=== PATIENT | male | born 1935 | race Caucasian/White ===

== ENCOUNTER 2018-05-29 03:36 | Observation (INO) | payer MEDICARE, SELFPAY ==
[2018-05-29] VITALS (7 sets, daily range): BP systolic 109–137; BP diastolic 61–79; PULSE 68–83; RESP 16–96; TEMP 36.6; O2SAT 14–98; BMI 27.0; BMI 27.7
--- NOTE | 2018-05-29 04:21 | EKG12_ITS ---
Test Reason : Blood Pressure : / mmHG Vent. Rate : 074 BPM Atrial Rate : 094 BPM P-R Int : 000 ms QRS Dur : 144 ms QT Int : 446 ms P-R-T Axes : 000 064 006 degrees QTc Int : 495 ms Atrial fibrillation Right bundle branch block Abnormal ECG Confirmed by RAQUEL MILIAN, GISELE ([id number]), news editor ROMIE OJEDA ([id number]) on 06/01/2018 1:25:44 PM Referred By: HAYLIE Confirmed By:GISELE GARCÍA MD
--- NOTE | 2018-05-29 04:21 | CT_ITS ---
STUDY: CT BRAIN WITHOUT CONTRAST REASON FOR EXAM: Male, 82 years old. Disequilibrium. Patient has history of thoracic aortic valve replacement. RADIATION DOSAGE (If Supplied By Facility): CTDIvol = ( 44.99 ) mGy, DLP = ( 829.85 ) mGycm TECHNIQUE: Transaxial CT imaging of the brain was performed without administration of intravenous contrast material. Multiplanar reformations are submitted for interpretation. Individualized dose optimization techniques were used for this CT. COMPARISON: MRI of the brain dated February 15, 2014. FINDINGS: Normal soft tissue structures. Normal calvarium. There is mild cerebral atrophy with widening of the extra-axial spaces and ventricular dilatation. There are areas of decreased attenuation within the white matter tracts of the supratentorial brain, consistent with microvascular disease changes. Normal basal ganglia and thalami. Normal brainstem. There is mild cerebellar atrophy. There is no intracranial hemorrhage. There is minimal atherosclerotic calcification of the intracranial arteries. There is a right maxillary mucous retention cyst and/or polyp. There are mucous retention cysts within the right posterior ethmoid sinus. CT/Brain/Head without Contrast IMPRESSION: 1. Chronic involutional changes of the brain. 2. No CT evidence of acute intracranial hemorrhage. Electronically Signed: Terra Parikh MD at 5:12 EST , Service support ,
--- NOTE | 2018-05-29 04:24 | ED.VIS.GEN ---
History of Present Illness Chief Complaint: Neuro S/Sx Informant: Patient Onset: Hours - 1 Context: Sudden Onset Quality: staggering, off-balance Current Severity: Mild Maximum Severity: Severe Worsened by: walking Relieved by: resting Associated Symptoms: none Narrative: Patient states he got up around 3 in the morning to use the restroom, noticed he was staggering. When he rests, he has no symptoms. He only has them when he walks. Upon walking into the ER and his room from the car, he states his walking is 90% better. He has chronic tinnitus. There is no change in that. No recent illness, head injury, earache. No headache, nausea, peripheral neurologic symptoms in his arms or legs. He had a TIA in the past that affected one side of his body, he cannot remember which side, it left him with no permanent deficits. He is on warfarin, his last INR was about 2.6 a week or so ago he states. - Past Medical History (1) Atrial fibrillation and flutter Status: Chronic (2) HTN (hypertension) Status: Chronic (3) Hyperlipidemia Status: Chronic (4) TIA (transient ischemic attack) Status: Chronic Past Medical History - Allergies and Home Meds Allergies/Adverse Reactions: Allergies No Known Allergies Allergy (Verified 05/29/18 03:37) Primary Care Physician: Yehuda Richards III, MD [Primary Care Provider] - Surgical History: herniorrhaphy, tonsillectomy, - - porcine AVR Lives: Spouse/ Significant Other Smoking Status: Never smoker - Family History Maternal Family History: Reports: Heart Disease Paternal Family History: Reports: Heart Disease Review of Systems General: Denies: Chills, Fever, Sweats Eyes: Denies: Visual changes - bilaterally, Diplopia ENT: Reports: - - chronic bilat tinnitus. Denies: Bilateral ear pain, Rhinorrhea, Sore throat Cardiovascular: Denies: Chest pain, Palpitations Respiratory: Denies: Dyspnea, Cough, Dyspnea on exertion Gastrointestinal: Denies: Abdominal pain, Nausea, Vomiting, Diarrhea, Melena, Hematochezia Genitourinary: Denies: Dysuria, Hematuria, Frequency Musculoskeletal: Denies: Back pain, Swelling, Extremity Pain Skin: Denies: Rash, Wounds Neurological: Reports: - - dysquilibrium. Denies: Headache, Weakness, Numbness Psych: Denies: Depression, Anxiety Endocrine: Denies: Polyuria, Polydipsia Hematologic: Denies: Easy bruising, Easy bleeding Allergy: Denies: Swelling of the mouth, Swelling of the tongue Physical Exam Vital Signs/Narrative: Vital Signs Temp Pulse Resp BP Pulse Ox 05/29/18 03:37 97.9 F 80 16 137/79 H 96 Inital Vital Signs reviewed: Yes General: Well nourished, Well developed Head: Normocephalic, Atraumatic Eyes: Perrl, EOMI, - - no abn nystagmus ENT: Moist mucous membranes, No rhinorrhea, TM's clear Neck: Supple, Nontender, - - no carotid bruits Cardiovascular: Regular rate, Regular rhythm, No murmurs Respiratory: No distress, CTA bilaterally, Chest nontender Abdomen: Soft, Nontender, Nondistended, Normal bowel sounds Back: Nontender, Normal Inspection Extremities: Nontender, No edema Skin: Normal color, No rash Neurological: Alert, Oriented x3, Cranial nerves II-XII grossly intact, Normal Strength, Normal Sensation, Normal DTR, - - Nml FTN and HTS bilat. No aphasia or dysarthia. NIHSS 0. Psychological: Normal affect Diagnostic/Tx/Re-eval Impressions Brain CT 05/29/18 04:21 IMPRESSION: 1. Chronic involutional changes of the brain. 2. No CT evidence of acute intracranial hemorrhage. Electronically Signed: Terra Parikh MD at 5:12 EST , Service support , 05/29/18 04:21 Brain/Head without Contrast [CT] Stat Laboratory Results 05/29/18 05/29/18 05/29/18 03:50 03:50 03:50 WBC 7.1 RBC 4.50 L Hgb 14.2 Hct 42.1 MCV 93.6 MCH 31.6 MCHC 33.7 RDW 12.2 RDW Differential 41.0 Plt Count 169 MPV 11.5 Immature Gran % (Auto) 0.100 Neut % (Auto) 52.4 Lymph % (Auto) 30.0 [place] % (Auto) 13.3 H Eos % (Auto) 3.8 Baso % (Auto) 0.4 Absolute Neuts (auto) 3.7 Absolute Lymphs (auto) 2.13 Total Counted Not Reportable PT 25.6 H INR 2.3 APTT 42.8 H Sodium 142 Potassium 3.8 Chloride 105 Carbon Dioxide 25.0 Anion Gap 12 BUN 28 H Creatinine 1.30 Estim Creat Clear Calc 49.51 Est GFR (MDRD) Af Amer 68 Est GFR (MDRD) Non-Af 56 L BUN/Creatinine Ratio 21.5 H Glucose 103 Calcium 8.8 Troponin I < 0.015 POC Glucose 05/29/18 04:45 WBC RBC Hgb Hct MCV MCH MCHC RDW RDW Differential Plt Count MPV Immature Gran % (Auto) Neut % (Auto) Lymph % (Auto) [place] % (Auto) Eos % (Auto) Baso % (Auto) Absolute Neuts (auto) Absolute Lymphs (auto) Total Counted PT INR APTT Sodium Potassium Chloride Carbon Dioxide Anion Gap BUN Creatinine Estim Creat Clear Calc Est GFR (MDRD) Af Amer Est GFR (MDRD) Non-Af BUN/Creatinine Ratio Glucose Calcium Troponin I POC Glucose 106 - Rhythm Strip Rhythm Strip: A-fib Rate: 75 Ectopy: None - EKG Initial EKG Interpretation: Atrial Fibrillation, RBBB, Non-Specific ST Changes Prior: Unchanged - Medical Decision Making Labs are unremarkable, EKG shows stable A. fib with a chronic right bundle branch block, CT head negative. Upon reevaluation, patient is ambulatory and still feels the symptoms of ataxia, similar to when he arrived to the ER, stating that he is certainly not at baseline. I discussed with neurology Dr. Hartman, and discussed his EGFR of 56. He agrees that CT angiography is not necessarily needed given his NIH of 0, but he recommends admission for further TIA workup/monitoring. Discussed with hospitalist. ED Disposition - Plan for ED Patient: Disposition: Acute Care Hospital [facility] Chief Complaint: Neuro S/Sx Diagnosis: Ataxia Referrals: Yehuda Richards III, MD [Primary Care Provider] -
[2018-05-29 04:45] LABS: Absolute Lymphocyte Count 2.13 X10^3/ul (0.83-4.51); Absolute Neutrophil Count 3.7 X10^3/uL (2.0-7.7); Basophil# 0.03 X10^3/uL; Basophil% 0.4 % (0-1); Eosinophil# 0.27 X10^3/uL; Eosinophils% 3.8 % (0-5); Hematocrit 42.1 % (40-54); Hemoglobin 14.2 g/dl (13.0-16.5); Lymphocyte # 2.13 X10^3/ul (4.0); Mean Corp Hgb Conc 33.7 g/gl (32-36); Mean Corpuscular Hgb 31.6 pg (27.0-32.0); Mean Corpuscular Volume 93.6 fL (80-94); Mean Platelet Vol. 11.5 fl (6.2-12.0); Monocyte# 0.94 X10^3/uL; Monocyte% 13.3 % (0-10); Neutrophil # 3.71 X10^3/uL (2.7-7.7); Neutrophil % 52.4 % (47-70); Platelet Count 169 K/mm3 (150-450); RBC Distribution Width CV 12.2 % (11.6-14.6); White Blood Count 7.1 K/mm3 (4.4-11.0)
[2018-05-29 04:46] LABS: POSITIVE COUNT NO; POSITIVE DIFFERENTIAL NO; POSITIVE MORPHOLOGY NO
[2018-05-29 04:48] LABS: International Normalized Ratio 2.3; Prothrombin Time (Protime)PT. 25.6 SECONDS (11.7-14.9)
[2018-05-29 04:49] LABS: Partial Thromboplast Time 42.8 Seconds (24.1-36.2)
[2018-05-29 04:51] LABS: Bedside Glucose 106 mg/dL (70-110)
[2018-05-29 04:55] LABS: Anion Gap 12 (5-15); BUN 28 mg/dL (7-18); BUN/Creat Ratio 21.5 RATIO (10-20); Calcium,Total 8.8 mg/dL (8.5-10.1); Chloride 105 mmol/L (98-107); EST Glomerular Filtration Rate 56 mL/min (>60); Est Glom Filt Rate - Afr Amer 68 mL/min (>60); Estimated Creatinine Clearance 49.51 ml/min; Glucose 103 mg/dL (74-106); Potassium 3.8 mmol/L (3.5-5.1); Sodium Level 142 mmol/L (136-145)
--- NOTE | 2018-05-29 07:29 | NURSING ---
109 OBS CONY ZHAO
--- NOTE | 2018-05-29 07:55 | MRI_ITS ---
STUDY: MRA NECK WITH AND WITHOUT CONTRAST REASON FOR EXAM: Male, 82 years old. W Weakness UNSTEADY GAIT, TIA. TECHNIQUE: 3-D [id number] (TOF) imaging was performed in an 1.5 T MRI scanner. 9 ml of Gadavist was administered for the contrast enhanced images. COMPARISON: February 16, 2014 CTA FINDINGS: RIGHT CAROTID ARTERIES: Normal right common carotid artery (CCA). Normal right common carotid bulb. Normal origin of the right internal carotid (ICA) artery without a hemodynamically significant stenosis. Normal visualized cervical portion of the right internal carotid artery. Normal origin of the right external carotid artery (ECA). LEFT CAROTID ARTERIES: Normal left common carotid artery (CCA). There is moderate atherosclerotic plaque formation with moderate narrowing of the carotid bulb. There is moderate atherosclerotic plaque formation of the origin of the left internal carotid artery with an estimated stenosis of 50-69% stenosis. Normal visualized cervical portion of the left internal carotid artery. Normal origin of the left external carotid artery (ECA). VERTEBRAL ARTERIES: Normal antegrade flow within the bilateral vertebral artery without a hemodynamically significant stenosis. 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 Electronically Signed: Pretty Garcia MD at 12:37 EST Tel , Service support ,
--- NOTE | 2018-05-29 07:55 | MRI_ITS ---
STUDY: MRA OF THE HEAD WITHOUT CONTRAST REASON FOR EXAM: Male, 82 years old. weakness, ataxia since 3am today. TECHNIQUE: 3-D [id number] (TOF) imaging was performed with MIPs. The study was performed unenhanced. COMPARISON: None. FINDINGS: Normal bilateral petrous carotid arteries. Normal right cavernous carotid artery with a normal supraclinoid bifurcation. Normal left cavernous carotid artery with a normal supraclinoid bifurcation. Normal right A1 segments of the anterior cerebral artery. Normal left A1 segments of the anterior cerebral artery. Normal intact anterior communicating artery (ACOM). Normal bilateral A2 segments of the anterior cerebral arteries. Normal right M1 and M2 segments of the middle cerebral arteries, with a normal M1 bifurcation. Normal left M1 and M2 segments of the middle cerebral arteries, with a normal M1 bifurcation. There is non-visualization of the right posterior communicating artery (PCOM). Normal left posterior communicating artery (PCOM). Normal bilateral vertebral arteries. Normal basilar artery with a normal basilar bifurcation. The visualized bilateral superior cerebellar (SCA) arteries are normal. Normal bilateral P1, P2 and visualized P3 segments of the posterior cerebral arteries. There is no demonstrated aneurysm of the [place] of [place]. There is no major vessel occlusion or hemodynamically significant stenosis. There is no demonstrated abnormality of the visualized brain. MRI/MRA Head ONLY without Contrast IMPRESSION: Normal MRA of the head Electronically Signed: Pretty Garcia MD at 12:33 EST Tel , Service support ,
--- NOTE | 2018-05-29 07:55 | MRI_ITS ---
STUDY: MRI BRAIN WITHOUT CONTRAST REASON FOR EXAM: Male, 82 years old. W Weakness UNSTEADY GAIT, TIA. TECHNIQUE: Standardized multiplanar fat and water weighted pulse sequences were obtained. COMPARISON: 05/29/2018 CT of the head and MRI dated February 15, 2014 FINDINGS: There is mild cerebral atrophy with widening of the extra-axial spaces and ventricular dilatation. There are multiple white matter hyperintensities, distributed throughout the deep white matter tracts of the cerebral hemispheres, consistent with mild chronic white matter ischemic changes. There is a subtle 5 mm high diffusion signal at the high posterior frontal lobe (diffusion image #26 series 4) ADC map is difficult to determine but it is felt that there is Doppler signal in this region. Additionally there were acute lacunar infarcts of this area on the previous MRI examination in 2013. Normal bilateral basal ganglia. Normal thalami. There is no extra-axial fluid accumulation. Normal flow voids within the major intracranial circulation suggesting patency by spin echo criteria. Normal sella turcica, pituitary gland, infundibular stalk, optic chiasm and hypothalamus. Normal tectal plate and pineal gland. There are chronic white matter ischemic changes of the dino. The midbrain and medulla are otherwise normal. Normal cerebellum. Normal basal cisterns. 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 N.B. : The above information has been verbally conveyed by Pretty Garcia MD to Cat Teran RN, on 05/29/2018 12:41:10 (ET). Electronically Signed: Pretty Garcia MD at 12:31 EST Tel , Service support ,
[2018-05-29] MEDS: 0.9% Normal Saline 1,000 ML 100 ML IV (10:42)
--- NOTE | 2018-05-29 12:33 | ECHOCS_ITS ---
Version 2 Reason For Study: Stroke Procedure This was a 2D Doppler, Color Flow transthoracic echocardiogram. The study was technically difficult. Contrast injection was performed. Exam performed portable in patient room. Left Ventricle Normal LV size. Mild concentric left ventricular hypertrophy. Left ventricular systolic function is normal. The estimated ejection fraction is 60 %. No regional wall motion abnormalities noted. Right Ventricle Normal RV size. Normal systolic function. Atria The left atrium is mildly enlarged. The right atrium is mildly enlarged. No doppler evidence for ASD. Bubble contrast study negative for right to left interatrial shunt. Mitral Valve There is mild mitral annular calcification. Mild focal mitral valve calcification of the anterior leaflet. Trivial mitral valve insufficiency. Tricuspid Valve Normal tricuspid valve. Mild tricuspid valve insufficiency. Right ventricular systolic pressure estimated to be 34 mmHg. Aortic Valve Stable appearing bioprosthetic aortic valve apparatus. Pulmonic Valve The pulmonic valve is not well visualized. Mild (1+) pulmonic valve insufficiency. Great Vessels Normal sized aortic root. Calcified aortic root. Pericardium/Pleural No pericardial effusion. Medication Performed a rapid injection of agitated mix of 9 cc saline and 1cc air to assess for atrial septal defect. Definity0.3ml given slow IV push to enhance endocardial definition. MMode/2D Measurements & Calculations LVIDd: 4.7 cm IVSd: 1.4 cm LVOT diam: 2.3 cm LVIDs: 2.4 cm LVPWd: 1.4 cm RVDd: 5.2 cm FS: 49.1 % LVOT area: 4.1 cm2 Ao root diam: 3.8 cm LAV(MOD-bp): 86.2 ml LVAd ap4: 24.9 cm2 LAV(MOD-bp) Indexed: 39.3 ml/m2 EDV(MOD-sp4): 76.2 ml LAV(MOD-sp2): 93.0 ml EDV(sp4-el): 78.4 ml LAV(MOD-sp4): 65.4 ml LVAs ap4: 14.6 cm2 ESV(MOD-sp4): 30.6 ml ESV(sp4-el): 32.2 ml EF(MOD-sp4): 59.8 % EF(sp4-el): 58.9 % SV(MOD-sp4): 45.6 ml SV(sp4-el): 46.2 ml LA A4 area: 22.7 cm2 LA dimension(2D): 5.2 cm RA A4 area: 19.7 cm2 Doppler Measurements & Calculations MV E max zander: 111.6 cm/sec Ao V2 max: 240.5 cm/sec LV V1 max: 128.9 cm/sec MV A max zander: 31.8 cm/sec Ao max P.1 mmHg LV V1 max P.7 mmHg MV E/A: 3.5 Ao V2 mean: 159.6 cm/sec LV V1 mean P.9 mmHg Ao mean P.6 mmHg LV V1 mean: 94.9 cm/sec Ao V2 VTI: 44.5 cm LV V1 VTI: 25.[address](I,D): 2.[address](V,D): 2.2 cm2 SV(LVOT): 105.1 ml PA V2 max: 75.3 cm/sec PI end-d zander: 129.5 cm/sec TR max zander: 277.8 cm/sec TR max P.9 mmHg Interpretation Summary The study was technically difficult. Contrast injection was performed. Left ventricular systolic function is normal. The estimated ejection fraction is 60 %. Mild concentric left ventricular hypertrophy. The left atrium is mildly enlarged. The right atrium is mildly enlarged. There is mild mitral annular calcification. Mild focal mitral valve calcification of the anterior leaflet. Trivial mitral valve insufficiency. Mild tricuspid valve insufficiency. Stable appearing bioprosthetic aortic valve apparatus. Mild (1+) pulmonic valve insufficiency. Calcified aortic root. Right ventricular systolic pressure estimated to be 34 mmHg. Transmitral diastolic flow velocities suggest diastolic dysfunction (pseudonormal pattern). Bubble contrast study negative for right to left interatrial shunt. Ordering Physician: Florentin Hall Referring Physician: Yehuda Richards Performed By: Leyda Sal, TANNER, RVT
--- NOTE | 2018-05-29 13:05 | CON.PCM_ITS ---
Reason for Consult Date of Consultation: 05/29/18 Reason for Consultation: ataxia History of Present Illness: The patient is a 82 year old who was normal when went to bed, awoke at 3 am staggering Past Medical History Past Medical History (Chronic Problems): Chronic Problems (Last Reviewed 08/08/17 @ 15:04 by Lanny Montgomery) Hyperlipidemia (Chronic) S/P AVR (aortic valve replacement) (Chronic) TIA (transient ischemic attack) (Chronic) HTN (hypertension) (Chronic) Atrial fibrillation and flutter (Chronic) Medical History: Medical History (Last Reviewed 08/08/17 @ 15:04 by Lanny Montgomery) Hyperlipidemia (Chronic) E78.5 TIA (transient ischemic attack) (Chronic) HTN (hypertension) (Chronic) I10 Atrial fibrillation and flutter (Chronic) I48.91, I48.92 Inguinal hernia (Acute) K40.90 Allergies No Known Allergies Allergy (Verified 05/29/18 03:37) Home Medications: Ambulatory Orders Medication Instructions Recorded Multivitamins,Ther W-Minerals 0.5 tab PO BID 02/15/14 [Multivitamin With Minerals] Simvastatin [Zocor] 20 mg PO QHS 02/15/14 Clopidogrel Bisulfate [Plavix] 75 mg PO DAILY 05/06/17 Furosemide [Lasix] 20 mg PO DAILY 05/06/17 Spironolactone [Aldactone] 25 mg PO DAILY 05/06/17 Warfarin Sodium [Coumadin] 1 mg PO QODAY 05/06/17 Warfarin [Coumadin] 2 mg PO QODAY 05/06/17 Metoprolol Tartrate 12.5 mg PO BID 05/29/18 Surgical History: Surgical History (Last Reviewed 08/08/17 @ 15:04 by Lanny Montgomery) S/P AVR (aortic valve replacement) (Chronic) Z95.2 S/P right inguinal hernia repair Onset Date: ~05/08/17 Z98.890, Z87.19 Surgical History: herniorrhaphy, tonsillectomy, - - porcine AVR Lives: Spouse/ Significant Other Smoking Status: Never smoker - *Family History Maternal History Items: Heart Disease Paternal History Items: Heart Disease Review of Systems Constitutional: Denies: Chills, Fever, Weight Change HEENT: Denies: Head Aches, Sinus Congestion, Sinus Drainage Cardiovascular: Denies: Chest Pain, Palpitations Respiratory: Denies: Cough, Shortness of breath at rest, Sputum production Gastrointestinal: Denies: Abdominal Pain, Nausea, Vomiting Genitourinary: Denies: Dysuria Musculoskeletal: Denies: Joint Pain, Joint Tenderness Skin: Denies: Rash, Wounds Neurological: Denies: Numbness, Tingling, Focal weakness Psychiatric: Denies: Anxiety, Depression, Homicidal Ideations, Suicidal Ideations Hematologic/ Lymphatic: Denies: Easy Bruising, Easy Bleeding Patient Problems: Active and Suspected Problems (Last Reviewed 08/08/17 @ 15:04 by Lanny Montgomery) Ataxia (Acute) - Physical Exam General: Alert, Oriented x3, Cooperative HEENT: Atraumatic, PERRLA, EOMI, Normocephalic Neck: Supple, No JVD, Negative Carotid Bruits Lungs: Clear to auscultation, Normal air movement Cardiovascular: Regular rate, No murmurs Abdomen: Bowel Sounds Present, Soft, Non Tender Extremities: No edema, Capillary Refill Less than 3 Seconds Skin: No rashes, No breakdown Musculoskeletal: No Tenderness to Palpation of Joints or Extremities Neurological: Cranial nerves II-XII grossly intact Psych/Mental Status: Normal Affect, Appropriate Vital Signs Temp Pulse Resp BP Pulse Ox 36.6 C 77 18 113/76 97 05/29/18 11:45 05/29/18 11:45 05/29/18 11:45 05/29/18 11:45 05/29/18 11:45 Oxygen Delivery Method Room Air Weight: 95.3 kg Body Mass Index (BMI) 27.7 Finger Stick Blood Glucose 106 Intake and Output for Last 24 Hours 05/27/18 05/28/18 05/29/18 23:59 23:59 23:59 Intake Total 183 / 183 Balance 183 / 183 Laboratory Tests Past 24 Hrs 05/29/18 05/29/18 05/29/18 03:50 03:50 03:50 WBC 7.1 RBC 4.50 L Hgb 14.2 Hct 42.1 MCV 93.6 MCH 31.6 MCHC 33.7 RDW 12.2 RDW Differential 41.0 Plt Count 169 MPV 11.5 Immature Gran % (Auto) 0.100 Neut % (Auto) 52.4 Lymph % (Auto) 30.0 [place] % (Auto) 13.3 H Eos % (Auto) 3.8 Baso % (Auto) 0.4 Absolute Neuts (auto) 3.7 Absolute Lymphs (auto) 2.13 Total Counted Not Reportable PT 25.6 H INR 2.3 APTT 42.8 H Sodium 142 Potassium 3.8 Chloride 105 Carbon Dioxide 25.0 Anion Gap 12 BUN 28 H Creatinine 1.30 Estim Creat Clear Calc 49.51 Est GFR (MDRD) Af Amer 68 Est GFR (MDRD) Non-Af 56 L BUN/Creatinine Ratio 21.5 H Glucose 103 Calcium 8.8 Troponin I < 0.015 POC Glucose 05/29/18 04:45 POC Glucose 106 Current Home Med List Medication Instructions Recorded Confirmed Type Multivitamins,Ther W-Minerals 0.5 tab PO BID 02/15/14 05/29/18 History [Multivitamin With Minerals] Simvastatin [Zocor] 20 mg PO QHS 02/15/14 05/29/18 History Clopidogrel Bisulfate [Plavix] 75 mg PO DAILY 05/06/17 05/29/18 History Furosemide [Lasix] 20 mg PO DAILY 05/06/17 05/29/18 History Spironolactone [Aldactone] 25 mg PO DAILY 05/06/17 05/29/18 History Warfarin Sodium [Coumadin] 1 mg PO QODAY 05/06/17 05/29/18 History Warfarin [Coumadin] 2 mg PO QODAY 05/06/17 05/29/18 History Metoprolol Tartrate 12.5 mg PO BID 05/29/18 05/29/18 History Current Medications Generic Name Dose Route Start Last Admin Trade Name Freq PRN Reason Stop Dose Admin Atorvastatin Calcium 80 mg 05/29/18 22:00 Lipitor PO QHS BROWN Sodium Chloride 500 mls @ 999 mls/hr 05/29/18 04:20 05/29/18 04:43 IV 999 mls/hr .Q31M ONE Administration Sodium Chloride 1,000 mls @ 100 mls/hr 05/29/18 07:55 05/29/18 10:42 IV 100 mls/hr .Q10H BROWN Administration Sodium Chloride 5 - 15 ml 05/29/18 09:50 IV UD PRN SALINE FLUSH mri reviewed, ? small left cortical infarct vs t2 shine thru. same distribution as prior stroke. Assessment/Plan All Active Problems (Last Reviewed 08/08/17 @ 15:04 by Lanny Montgomery) Ataxia (Acute) Inguinal hernia (Acute) suspect mild hypotension event rather than new cva continue coumadin, inr therapeutic echo ok to dc otherwise follow bp daily, keep log and follow with cardio, rec sbp 120-130 would dc plavix unless cardiac indication
--- NOTE | 2018-05-29 14:00 | PCM.HP.STD ---
Problem List (1) Ataxia Status: Acute (2) Hyperlipidemia Status: Chronic (3) S/P AVR (aortic valve replacement) Status: Chronic (4) TIA (transient ischemic attack) Status: Chronic (5) HTN (hypertension) Status: Chronic (6) Atrial fibrillation and flutter Status: Chronic (7) Inguinal hernia Status: Acute Qualifiers: Obstruction and gangrene presence: without obstruction or gangrene Laterality: unilateral Recurrence: non-recurrent Qualified Code(s): K40.90 - Unilateral inguinal hernia, without obstruction or gangrene, not specified as recurrent History of Present Illness Date of Admission: 05/29/18 Chief Complaint: ataxia The patient is a 82 year old M with pmhx of prior stroke, TIA, Afib/flutter, bovine aortic valve replacement, HTN, HLD, who presented to the ER with c/o ataxia. He states this began about 0300 today. He got out of bed to go to the bathroom and after taking several steps became unsteady on his feet. He states he felt unbalanced on his feet and could not get balanced. He went back to bed and felt steady. He denies dizziness, LH, double vision, focal weakness, foot drag, slurred speech, numbness or tingling. CT brain did not show a stroke. His INR was therapeutic at 2.3. His symptoms completely resolved. [] Past Medical History Past Medical History (Chronic Problems): Chronic Problems (Last Reviewed 08/08/17 @ 15:04 by Lanny Montgomery) Hyperlipidemia (Chronic) S/P AVR (aortic valve replacement) (Chronic) TIA (transient ischemic attack) (Chronic) HTN (hypertension) (Chronic) Atrial fibrillation and flutter (Chronic) Medical History: Medical History (Last Reviewed 08/08/17 @ 15:04 by Lanny Montgomery) Hyperlipidemia (Chronic) E78.5 TIA (transient ischemic attack) (Chronic) HTN (hypertension) (Chronic) I10 Atrial fibrillation and flutter (Chronic) I48.91, I48.92 Inguinal hernia (Acute) K40.90 Allergies No Known Allergies Allergy (Verified 05/29/18 03:37) Home Medications: Ambulatory Orders Medication Instructions Recorded Multivitamins,Ther W-Minerals 0.5 tab PO BID 02/15/14 [Multivitamin With Minerals] Simvastatin [Zocor] 20 mg PO QHS 02/15/14 Clopidogrel Bisulfate [Plavix] 75 mg PO DAILY 05/06/17 Spironolactone [Aldactone] 25 mg PO DAILY 05/06/17 Warfarin Sodium [Coumadin] 1 mg PO QODAY 05/06/17 Warfarin [Coumadin] 2 mg PO QODAY 05/06/17 Metoprolol Tartrate 12.5 mg PO BID 05/29/18 Surgical History: Surgical History (Last Reviewed 08/08/17 @ 15:04 by Lanny Montgomery) S/P AVR (aortic valve replacement) (Chronic) Z95.2 S/P right inguinal hernia repair Onset Date: ~05/08/17 Z98.890, Z87.19 Surgical History: herniorrhaphy, tonsillectomy, - - porcine AVR Psychiatric History: No pertinent psych hx Lives: Spouse/ Significant Other Smoking Status: Never smoker Alcohol: None Drugs: None - *Family History Maternal History Items: Heart Disease Paternal History Items: Heart Disease Review of Systems Constitutional: Denies: Chills, Fever, Weight Change HEENT: Denies: Head Aches, Sinus Congestion, Sinus Drainage Cardiovascular: Denies: Chest Pain, Palpitations Respiratory: Denies: Cough, Shortness of breath at rest, Sputum production Gastrointestinal: Denies: Abdominal Pain, Nausea, Vomiting Genitourinary: Denies: Dysuria Musculoskeletal: Denies: Joint Pain, Joint Tenderness Skin: Denies: Rash, Wounds Neurological: Reports: Balance problems. Denies: Change in Speech, Slurred speech, Confusion, Focal weakness, Numbness, Tingling Psychiatric: Denies: Anxiety, Depression, Homicidal Ideations, Suicidal Ideations Hematologic/ Lymphatic: Denies: Easy Bruising, Easy Bleeding VTE Information - Inpt Only VTE Present on Admission: No VTE Mechan Device Prophylaxis: None VTE Pharm Prophylaxis ordered?: Yes Patient Problems: Active and Suspected Problems (Last Reviewed 08/08/17 @ 15:04 by Lanny Montgomery) Ataxia (Acute) - Physical Exam General: Alert, Oriented x3, Cooperative HEENT: Atraumatic, PERRLA, EOMI, Normocephalic Neck: Supple, No JVD, Negative Carotid Bruits Lungs: Clear to auscultation, Normal air movement Cardiovascular: Regular rate, No murmurs Abdomen: Bowel Sounds Present, Soft, Non Tender Extremities: No edema, Capillary Refill Less than 3 Seconds Skin: No rashes, No breakdown Musculoskeletal: No Tenderness to Palpation of Joints or Extremities Neurological: Cranial nerves II-XII grossly intact Psych/Mental Status: Normal Affect, Appropriate Vital Signs Temp Pulse Resp BP Pulse Ox 97.9 F 77 18 113/76 97 05/29/18 11:45 05/29/18 11:45 05/29/18 11:45 05/29/18 11:45 05/29/18 11:45 Oxygen Delivery Method Room Air Weight: 210 lb 1.608 oz Body Mass Index (BMI) 27.7 Finger Stick Blood Glucose 106 Intake and Output for Last 24 Hours 05/27/18 05/28/18 05/29/18 23:59 23:59 23:59 Intake Total 183 / 183 Balance 183 / 183 Laboratory Tests Past 24 Hrs 05/29/18 05/29/18 05/29/18 03:50 03:50 03:50 WBC 7.1 RBC 4.50 L Hgb 14.2 Hct 42.1 MCV 93.6 MCH 31.6 MCHC 33.7 RDW 12.2 RDW Differential 41.0 Plt Count 169 MPV 11.5 Immature Gran % (Auto) 0.100 Neut % (Auto) 52.4 Lymph % (Auto) 30.0 [place] % (Auto) 13.3 H Eos % (Auto) 3.8 Baso % (Auto) 0.4 Absolute Neuts (auto) 3.7 Absolute Lymphs (auto) 2.13 Total Counted Not Reportable PT 25.6 H INR 2.3 APTT 42.8 H Sodium 142 Potassium 3.8 Chloride 105 Carbon Dioxide 25.0 Anion Gap 12 BUN 28 H Creatinine 1.30 Estim Creat Clear Calc 49.51 Est GFR (MDRD) Af Amer 68 Est GFR (MDRD) Non-Af 56 L BUN/Creatinine Ratio 21.5 H Glucose 103 Calcium 8.8 Troponin I < 0.015 POC Glucose 05/29/18 04:45 POC Glucose 106 Assessment/Plan All Active Problems (Last Reviewed 08/08/17 @ 15:04 by Lanny Montgomery) Ataxia (Acute) Inguinal hernia (Acute) 1. Ataxia - resolved at time of admission. ct brain neg. Hx stroke/tia. INR therapeutic. Continue plavix and statin. MRI/A brain / head / neck, echo. Neuro consult. PT/OT/ST evals. 2. Afib/flutter - warfarin, in a fib but rate controlled. 3. HTN - stable 4. HLD statin 5. Hx bovine aortic valve. DVT ppx: lovenox DC planning: pending stroke workup. This patient was seen by Efrem Estrada PA-C under the supervision of Doctor Hall.
--- NOTE | 2018-05-29 14:16 | DCINST_ITS ---
- Discharge Diagnoses Current Active Problems: Current Active and Chronic Problems (Last Reviewed 08/08/17 @ 15:04 by Lanny Montgomery) Ataxia (Acute) You will use the following diet at home:: Cardiac Your food should be the consistency of: Regular Your liquids should be the consistency of: Regular/Thin Discharge Activity: Return to Normal Activity Allergies/Adverse Reactions: Allergies No Known Allergies Allergy (Verified 05/29/18 03:37) Medications to take at Discharge Multivitamins,Ther W-Minerals [Multivitamin With Minerals] 0.5 tab PO BID 02/15/14 Simvastatin [Zocor] 20 mg PO QHS 02/15/14 Clopidogrel Bisulfate [Plavix] 75 mg PO DAILY 05/06/17 Spironolactone [Aldactone] 25 mg PO DAILY 05/06/17 Warfarin Sodium [Coumadin] 1 mg PO QODAY 05/06/17 Warfarin [Coumadin] 2 mg PO QODAY 05/06/17 Metoprolol Tartrate 12.5 mg PO BID 05/29/18 Primary Care Physician: Yehuda Richards III, MD [Primary Care Provider] - Please follow up with your Primary Care Physician in: 1-2 weeks Test Results: Test results from this visit will be discussed in further detail at your follow- up appointment, if applicable. Please Follow Up With: Javi Marie MD When: 1-2 weeks Proposed Discharge Date: 05/29/18
--- NOTE | 2018-05-29 14:17 | PCM.DC.SUM ---
Discharge Date and Diagnosis - Problem List Patient Problems: Active and Suspected Problems (Last Reviewed 08/08/17 @ 15:04 by Lanny Montgomery) Ataxia (Acute) Date of Admission: 02/15/14 Date of Discharge: 05/29/18 - Primary Discharge Diagnosis Active and Suspected Problems (Last Reviewed 08/08/17 @ 15:04 by Lanny Montgomery) Ataxia (Acute) 2/2 hypotension Stroke ruled out HTN Bovine aortic valve Afib/flutter HLD Hx CVA, TIA - Secondary Discharge Diagnosis Chronic Problems (Last Reviewed 08/08/17 @ 15:04 by Lanny Montgomery) Hyperlipidemia (Chronic) S/P AVR (aortic valve replacement) (Chronic) TIA (transient ischemic attack) (Chronic) HTN (hypertension) (Chronic) Atrial fibrillation and flutter (Chronic) Hospital Course and Treatment Imaging Results: CT/Brain/Head without Contrast IMPRESSION: 1. Chronic involutional changes of the brain. 2. No CT evidence of acute intracranial hemorrhage. 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 05/29/18 12:33 Echo Complete [ECHO] Routine pending Consults: Neuro - [place] Operations: None Procedures: 2-D Echocardiogram Summary of Care Provided: Hospital course: The patient is a 82 year old M with past medical history of atrial fibrillation atrial flutter, on warfarin, history of bovine aortic valve, history of TIA and CVA, hyperlipidemia, hypertension, who presents to the emergency room after experiencing an episode of ataxia this morning at about 3:00 in the morning. He was walking to the bathroom and became very unsteady on his feet and cannot good balance. He denied dizziness, lightheadedness, focal weakness, slurring, foot drag. His symptoms had mostly resolved by the time he came to the emergency room, by the time of admission his symptoms had completely resolved. A CT of the brain was obtained which was negative, and his INR was therapeutic at 2.3. EKG showed rate controlled atrial fibrillation. There was concern for stroke. He was admitted and placed on telemetry-he had A. fib but rate controlled. MRI of the brain was obtained which showed an acute infarct- lacunar left frontal lobe. MRA is were obtained-MRA of the neck showed 50-69% stenosis of left ICA. Neurology was consulted. Echo was ordered and is pending at this time. Neurology felt that this was not an acute stroke despite the read by the radiologist, and that it was related to hypotension. A stroke was ruled out and with concern for hypotension his Lasix was discontinued at this point, his medications are otherwise unchanged. He had no further ambulatory issues. He was discharged home in stable condition will need follow-up with his PCP and with Dr. Alves in 1-2 weeks. This patient was seen by Efrem Estrada PA-C under the supervision of Doctor Isabel. [] Patient Problems: Active and Suspected Problems (Last Reviewed 08/08/17 @ 15:04 by Lanny Montgomery) Ataxia (Acute) - Physical Exam General: Alert, Oriented x3, Cooperative HEENT: Atraumatic, PERRLA, EOMI, Normocephalic Neck: Supple, No JVD, Negative Carotid Bruits Lungs: Clear to auscultation, Normal air movement Cardiovascular: Regular rate, No murmurs Abdomen: Bowel Sounds Present, Soft, Non Tender Extremities: No edema, Capillary Refill Less than 3 Seconds Skin: No rashes, No breakdown Musculoskeletal: No Tenderness to Palpation of Joints or Extremities Neurological: Cranial nerves II-XII grossly intact Psych/Mental Status: Normal Affect, Appropriate, Alert and oriented to time, place, person, mood and affect Vital Signs Temp Pulse Resp BP Pulse Ox 97.9 F 77 18 113/76 97 05/29/18 11:45 05/29/18 11:45 05/29/18 11:45 05/29/18 11:45 05/29/18 11:45 Oxygen Delivery Method Room Air Weight: 210 lb 1.608 oz Body Mass Index (BMI) 27.7 Finger Stick Blood Glucose 106 Intake and Output for Last 24 Hours 05/27/18 05/28/18 05/29/18 23:59 23:59 23:59 Intake Total 183 / 183 Balance 183 / 183 Laboratory Tests Past 24 Hrs 05/29/18 05/29/18 05/29/18 03:50 03:50 03:50 WBC 7.1 RBC 4.50 L Hgb 14.2 Hct 42.1 MCV 93.6 MCH 31.6 MCHC 33.7 RDW 12.2 RDW Differential 41.0 Plt Count 169 MPV 11.5 Immature Gran % (Auto) 0.100 Neut % (Auto) 52.4 Lymph % (Auto) 30.0 [place] % (Auto) 13.3 H Eos % (Auto) 3.8 Baso % (Auto) 0.4 Absolute Neuts (auto) 3.7 Absolute Lymphs (auto) 2.13 Total Counted Not Reportable PT 25.6 H INR 2.3 APTT 42.8 H Sodium 142 Potassium 3.8 Chloride 105 Carbon Dioxide 25.0 Anion Gap 12 BUN 28 H Creatinine 1.30 Estim Creat Clear Calc 49.51 Est GFR (MDRD) Af Amer 68 Est GFR (MDRD) Non-Af 56 L BUN/Creatinine Ratio 21.5 H Glucose 103 Calcium 8.8 Troponin I < 0.015 POC Glucose 05/29/18 04:45 POC Glucose 106 Discharge Diet: Low fat/ Low Cholesterol, 2000 mg Sodium Diet Discharge Activity: Return to Normal Activity Home Medications: Medications to take at Discharge Multivitamins,Ther W-Minerals [Multivitamin With Minerals] 0.5 tab PO BID 02/15/14 Simvastatin [Zocor] 20 mg PO QHS 02/15/14 Clopidogrel Bisulfate [Plavix] 75 mg PO DAILY 05/06/17 Spironolactone [Aldactone] 25 mg PO DAILY 05/06/17 Warfarin Sodium [Coumadin] 1 mg PO QODAY 05/06/17 Warfarin [Coumadin] 2 mg PO QODAY 05/06/17 Metoprolol Tartrate 12.5 mg PO BID 05/29/18 Primary Care Physician: Yehuda Richards III, MD [Primary Care Provider] - Please follow up with your Primary Care Physician in: 1-2 weeks Please Follow Up With: Javi Marie MD When: 1-2 weeks Disposition: Home Minutes spent on discharge:: 40 Patient Condition:: Stable Medical Necessity - Tobacco Use Smoking Status: Never smoker Meaningful Use Info Meaningful Use Diagnoses (Choose all that apply): None applicable
--- NOTE | 2018-05-29 14:34 | NURSING ---
Pt walked in humphries. no weakness noted. Pt steady and not requiring any assistance.
--- NOTE | 2018-05-29 16:00 | NURSING ---
this RN assumed care of pt. pt resting in bed. ECHO completed at this time
== END 2018-05-29 14:16 | disposition home or self-care (01) ==
LOC: ED 06:36 → PCU 07:49
PROVIDERS: Admitting Provider Internal Medicine; Emergency Provider Emergency Medicine; Family Provider Family Medicine; PCP Family Medicine; Visit Provider Internal Medicine
DX: R27.0 Ataxia, unspecified (principal); I10 Essential (primary) hypertension; E78.5 Hyperlipidemia, unspecified; Z86.73 Personal history of transient ischemic attack (TIA), and cerebral infarction without residual deficits; I48.91 Unspecified atrial fibrillation; Z79.899 Other long term (current) drug therapy; Z79.02 Long term (current) use of antithrombotics/antiplatelets; Z79.01 Long term (current) use of anticoagulants; Z95.3 Presence of xenogenic heart valve; H93.13 Tinnitus, bilateral; R29.700 NIHSS score 0; K40.90 Unilateral inguinal hernia, without obstruction or gangrene, not specified as recurrent
CPT/HCPCS: 70450; 70544; 70549; 70551; 80048; 82962; 84484; 85025; 85610; 85730; 93005; 93306; 96360; 96361; 99283; A9585; J7030; J7040; Q9957; A4216; C8929

== ENCOUNTER → 2019-10-15 12:12 | Outpatient (CLI) | payer MEDICARE, SELFPAY ==
[2019-06-03 14:40] VITALS: BMI 27.6
[2019-10-15 12:43] LABS: International Normalized Ratio 2.6; Prothrombin Time (Protime)PT. 27.6 SECONDS (11.7-14.9)
== END ==
PROVIDERS: PCP Family Medicine; Referring Provider Family Medicine; Visit Provider Family Medicine
DX: I48.20 Chronic atrial fibrillation, unspecified (principal)
CPT/HCPCS: 85610

== ENCOUNTER → 2019-11-03 09:02 | Outpatient (CLI) | payer MEDICARE, SELFPAY ==
[2019-06-03 14:40] VITALS: BMI 27.6
--- NOTE | 2019-11-03 09:03 | AAVD_ITS ---
Reason For Study: AAA Aorta Measurements Aorta Doppler Measurements Proximal aorta measures1.8 X 2.2cm. in cross- Peak systolic flow velocities within the proximal sectional axis. aorta measure 88 cm/sec. Proximal aorta measures1.7cm. in longitudinal Peak systolic flow velocities within the mid aorta axis. measure 68 cm/sec. Mid aorta measures2.6 X 2.7cm. in cross-sectional Peak systolic flow velocities within the distal axis. aorta measure 42 cm/sec. Mid aorta measures2.6cm. in longitudinal axis. Distal aorta measures1.8 X 1.6cm. in cross- sectional axis. Distal aorta measures1.7cm. in longitudinal axis. Left Iliac Artery Left iliac artery measures 1.2 X 1.3 cm. in the longitudinal axis. Left iliac artery measures 1.1 cm. in the cross-sectional axis. Peak systolic velocity in the left iliac artery measures 72 cm/sec. Right Iliac Artery Right iliac artery measures 1.1 X 1.1 cm. in the longitudinal axis. Right iliac artery measures 1.3 X 1.3 cm. in the cross-sectional axis. Peak systolic velocity in the right iliac artery measures 73 cm/sec. Procedure Aorta IVC Iliac vasculature or bypass grafts [id number]. Interpretation Summary Ectatic mid abdominal aorta to 2.6 x 2.7cm; normal flow velocity Left common iliac artery 1.2 x 1.3 cm diameter Right common iliac artery 1.3 x 1.3 cm maximal diameter Ordering Physician: Dwayne Garcia Referring Physician: DANIEL RICHARDS Performed By: Saba Young, TANNER, RVT
== END ==
PROVIDERS: PCP Family Medicine; Referring Provider Internal Medicine Cardiovascular Disease; Visit Provider Internal Medicine Cardiovascular Disease
DX: I71.4 Abdominal aortic aneurysm, without rupture (principal)
CPT/HCPCS: 93978

== ENCOUNTER → 2020-03-08 13:55 | Outpatient (CLI) | payer MEDICARE, SELFPAY ==
[2020-02-18 11:06] VITALS: BMI 27.3
--- NOTE | 2020-03-08 13:56 | ECHOCS_ITS ---
Reason For Study: VALVE REPL Procedure This was a 2D Doppler, Color Flow transthoracic echocardiogram. The study was technically difficult. Contrast injection was performed. Exam performed in department. Left Ventricle Normal LV size. Left ventricular systolic function is normal. The estimated ejection fraction is 60 %. Post operative septal motion. Unable to assess diastolic dysfunction. Right Ventricle Normal RV size. Normal systolic function. Atria The left atrium is moderately enlarged. The right atrium is mildly enlarged. No doppler evidence for ASD. Mitral Valve There is no mitral annular calcification. Anterior leaflet diffuse mitral valve thickening. Mild (1+) mitral valve insufficiency. Tricuspid Valve Normal tricuspid valve. Mild tricuspid valve insufficiency. Right ventricular systolic pressure estimated to be 42 mmHg. Aortic Valve Stable appearing bioprosthetic aortic valve apparatus. Pulmonic Valve The pulmonic valve is not well visualized. Moderate (2+) pulmonic valve insufficiency. Great Vessels Mildly dilated aortic root. Pericardium/Pleural No pericardial effusion. Medication 22 gauge I.V. with prn adaptor inserted into left arm. Diluted definity 4.0ml given slow IV push to enhance endocardial definition. previously negative bubble study on echo. MMode/2D Measurements & Calculations LVIDd: 5.0 cm IVSd: 1.2 cm LVOT diam: 2.3 cm LVIDs: 3.4 cm LVPWd: 1.2 cm RVDd: 3.5 cm FS: 31.4 % LVOT area: 4.1 cm2 Ao root diam: 4.1 cm LAV(MOD-bp): 88.3 ml LA A4 area: 23.8 cm2 LAV(MOD-bp) Indexed: 41.4 ml/m2 LAV(MOD-sp2): 98.6 ml LAV(MOD-sp4): 74.4 ml LA dimension(2D): 5.6 cm RA A4 area: 18.6 cm2 Doppler Measurements & Calculations Ao V2 max: 211.3 cm/sec LV V1 max: 95.0 cm/sec SV(LVOT): 76.3 ml Ao max P.9 mmHg LV V1 max P.6 mmHg Ao V2 mean: 149.9 cm/sec LV V1 mean P.1 mmHg Ao mean P.8 mmHg LV V1 mean: 68.3 cm/sec Ao V2 VTI: 43.7 cm LV V1 VTI: 18.[address](I,D): 1.[address](V,D): 1.8 cm2 PA V2 max: 78.8 cm/sec TR max zander: 311.5 cm/sec TR max P.8 mmHg Interpretation Summary The study was technically difficult. Contrast injection was performed. Left ventricular systolic function is normal. The estimated ejection fraction is 60 %. Post operative septal motion. The left atrium is moderately enlarged. The right atrium is mildly enlarged. Anterior leaflet diffuse mitral valve thickening. Mild (1+) mitral valve insufficiency. Mild tricuspid valve insufficiency. Stable appearing bioprosthetic aortic valve apparatus. Moderate (2+) pulmonic valve insufficiency. Mildly dilated aortic root. Right ventricular systolic pressure estimated to be 42 mmHg. Unable to assess diastolic dysfunction. Ordering Physician: Dwayne Garcia Referring Physician: DANIEL SARABIA III Performed By: Saba Young, TANNER, RVT
== END ==
PROVIDERS: PCP Family Medicine; Referring Provider Internal Medicine Cardiovascular Disease; Visit Provider Internal Medicine Cardiovascular Disease
DX: I25.10 Atherosclerotic heart disease of native coronary artery without angina pectoris (principal); I48.92 Unspecified atrial flutter; I50.32 Chronic diastolic (congestive) heart failure; I71.4 Abdominal aortic aneurysm, without rupture; I71.2 Thoracic aortic aneurysm, without rupture; E78.5 Hyperlipidemia, unspecified; Z95.3 Presence of xenogenic heart valve
CPT/HCPCS: 93306; Q9957; A4216; C8929

== ENCOUNTER 2020-07-17 17:16 | Observation (INO) | payer MEDICARE, SELFPAY ==
[2020-02-18 11:06] VITALS: BMI 27.3
[2020-07-17] VITALS (9 sets, daily range): BP systolic 119–145; BP diastolic 51–75; PULSE 66–91; RESP 16–20; TEMP 35.9–37.3; O2SAT 94–97; BMI 27.6; BMI 27.3; BMI 27.4
--- NOTE | 2020-07-17 17:35 | EKG12_ITS ---
Test Reason : SOB Blood Pressure : / mmHG Vent. Rate : 086 BPM Atrial Rate : 068 BPM P-R Int : 000 ms QRS Dur : 134 ms QT Int : 426 ms P-R-T Axes : 000 071 -29 degrees QTc Int : 509 ms Atrial fibrillation with premature ventricular or aberrantly conducted complexes Right bundle branch block Abnormal ECG Confirmed by RAQUEL MILIAN, GISELE ([id number]), senior technical editor KYUNG AUGUSTINE ([id number]) on 07/20/2020 1:41:07 PM Referred By: LOU Confirmed By:GISELE GARCÍA MD
--- NOTE | 2020-07-17 17:37 | ED.VIS.GEN ---
History of Present Illness Chief Complaint: Shortness of Breath Informant: Patient Onset: Days Context: Gradual Onset Current Severity: Mild Maximum Severity: Moderate Narrative: Patient present secondary to shortness of breath with exertion. He states that for the past 4 or 5 days he will get short of breath with any exertion. He gives an example of going up a flight of steps and having to sit down to rest. He denies chest pain. He also reports a cough but thinks it is a separate complaint. He denies fever or chills. No vomiting or diarrhea. He has had his first Covid shot and is due to receive his second vaccine tomorrow. Patient has a history of aortic valve replacement in 2007. Last echocardiogram was done in March 2020 and revealed an EF of 60%. Patient denies orthopnea or peripheral edema. - Past Medical History (1) Atherosclerotic heart disease of [place] coronary artery without angina pectoris Status: Chronic Comment: Mild (2) Atrial flutter, chronic Status: Chronic (3) Chronic diastolic heart failure Status: Chronic (4) Essential hypertension Status: Chronic (5) History of aortic valve replacement with bioprosthetic valve Status: Chronic Comment: 25mm Meena Warner Bovine pericardial aortic valve @ [facility] 08/09/17 (6) Hyperlipidemia Status: Chronic Past Medical History - Allergies and Home Meds Allergies/Adverse Reactions: Allergies codeine Allergy (Severe, Verified 07/17/20 17:19) hives Primary Care Physician: Yehuda Richards III, MD [Primary Care Provider] - Surgical History: herniorrhaphy, tonsillectomy, - - porcine AVR Lives: Spouse/ Significant Other Smoking Status: Current every day smoker - Family History Maternal Family History: Family History (Last Reviewed 02/18/20 @ 11:09 by Belinda Ward) Father Myocardial infarction, Onset Age: 82 Brother Heart disease Family History: Reports: Heart Disease Paternal Family History: Family History (Last Reviewed 02/18/20 @ 11:09 by Belinda Ward) Father Myocardial infarction, Onset Age: 82 Brother Heart disease Family History: Reports: Heart Disease Review of Systems General: Denies: Chills, Fever Eyes: Denies: Visual changes - bilaterally ENT: Denies: Bilateral ear pain Cardiovascular: Denies: Chest pain Respiratory: Reports: Dyspnea, Cough. Denies: Sputum Gastrointestinal: Denies: Abdominal pain, Nausea, Vomiting, Diarrhea Musculoskeletal: Denies: Swelling, Extremity Pain Skin: Denies: Rash Neurological: Denies: Headache Hematologic: Denies: Easy bruising, Easy bleeding Allergy: Denies: Uticaria Physical Exam Vital Signs/Narrative: Vital Signs Temp Pulse Resp BP Pulse Ox 07/17/20 17:32 96.8 F L 87 20 H 142/61 H 97 07/17/20 17:17 96.7 F L 72 16 142/61 H 97 Inital Vital Signs reviewed: Yes General: Well nourished, Well developed Head: Normocephalic Neck: Supple Cardiovascular: Irregular Respiratory: No distress, CTA bilaterally Abdomen: Soft, Nontender Extremities: Nontender Skin: Normal color Neurological: Alert, Oriented x3 Psychological: Normal affect Diagnostic/Tx/Re-eval Chest X-Ray - ED: 1 View, Read by ED Physician, Chronic Changes, Cardiomegaly Impressions Chest X-Ray 07/17/20 17:54 IMPRESSION: No active disease. Electronically Signed: Wyatt Keyes MD at 18:32 EST Tel , Service support , 07/17/20 17:54 Chest 1 View (Portable) [RAD] Stat 07/17/20 17:37 Mucosa - Nose SARS-CoV-2 Antigen (Rapid) - Final Laboratory Results 07/17/20 07/17/20 07/17/20 17:43 17:43 17:43 WBC 7.6 RBC 4.11 L Hgb 12.6 L Hct 39.7 L MCV 96.6 H MCH 30.7 MCHC 31.7 L RDW Std Deviation 43.2 RDW Coeff of Alfonso 12.0 Plt Count 169 MPV 11.6 Immature Gran % (Auto) 0.300 Neut % (Auto) 70.6 H Lymph % (Auto) 12.5 L [place] % (Auto) 14.7 H Eos % (Auto) 1.6 Baso % (Auto) 0.3 Absolute Neuts (auto) 5.4 Absolute Lymphs (auto) 0.95 Nucleated RBC % 0 PT 32.4 H INR 3.2 Sodium 138 Potassium 4.2 Chloride 106 Carbon Dioxide 26.0 Anion Gap 6 BUN 32 H Creatinine 1.40 H Estim Creat Clear Calc 44.39 Est GFR (MDRD) Af Amer 62 Est GFR (MDRD) Non-Af 51 L BUN/Creatinine Ratio 22.9 H Glucose 104 Calcium 8.6 Troponin I 0.021 B-Natriuretic Peptide 07/17/20 17:43 WBC RBC Hgb Hct MCV MCH MCHC RDW Std Deviation RDW Coeff of Alfonso Plt Count MPV Immature Gran % (Auto) Neut % (Auto) Lymph % (Auto) [place] % (Auto) Eos % (Auto) Baso % (Auto) Absolute Neuts (auto) Absolute Lymphs (auto) Nucleated RBC % PT INR Sodium Potassium Chloride Carbon Dioxide Anion Gap BUN Creatinine Estim Creat Clear Calc Est GFR (MDRD) Af Amer Est GFR (MDRD) Non-Af BUN/Creatinine Ratio Glucose Calcium Troponin I B-Natriuretic Peptide 664.4 H - EKG Initial EKG Interpretation: Atrial Fibrillation - A. fib at 86 with right bundle branch block. No acute ST change. - Medical Decision Making Patient was observed on desk monitor. Vitals have been stable. Covid test is negative. Chest x-ray per my interpretation reveals chronic changes with cardiomegaly. Radiologist interpretation is reviewed. Blood work is significant for BNP elevated at 664. No prior BMPs are available for comparison. Patient does have chronic renal insufficiency with creatinine 1.4. I did review the patient's last cardiology note from January as well as his last echocardiogram from March. I spoke with Dr. Villaseñor, on-call for cardiology. He stated given the patient's history it is probably better to admit the patient overnight and give him IV Lasix as well as cycle his troponins. He asked that Dr. Garcia will be consulted in the morning to have him evaluate the patient. ED Disposition - Plan for ED Patient: Disposition: Acute Care Hospital [facility] Diagnosis: CHF (congestive heart failure) Referrals: Yeuhda Richards III, MD [Primary Care Provider] -
--- NOTE | 2020-07-17 17:54 | RAD_ITS ---
STUDY: X-RAY CHEST REASON FOR EXAM: Male, 84 years old. COUGH AND SOB WITH EXERTION SINCE LAST FRIDAY TECHNIQUE: Single AP portable view of the chest. COMPARISON: 02/15/2014 FINDINGS: Status post heart valve replacement. The lungs are clear and expanded. There is no demonstrated pleural abnormality. There is moderate cardiac enlargement. Normal mediastinum and donta. Normal visualized pulmonary arteries. Normal visualized aortic arch and descending thoracic aorta. Normal visualized thoracic spine. Normal visualized ribs, clavicles, and shoulders. There is no demonstrated abnormality of the visualized soft tissue structures of the upper abdomen. RAD/Chest 1 View (Portable) IMPRESSION: No active disease. Electronically Signed: Wyatt Keyes MD at 18:32 EST Tel , Service support ,
[2020-07-17 17:59] LABS: Absolute Lymphocyte Count 0.95 X10^3/uL (0.83-4.51); Absolute Neutrophil Count 5.4 X10^3/uL (2.0-7.7); Basophil# 0.02 X10^3/uL; Basophil% 0.3 % (0-1); Eosinophil# 0.12 X10^3/uL; Eosinophils% 1.6 % (0-5); Hematocrit 39.7 % (40-54); Hemoglobin 12.6 g/dL (13.0-16.5); Lymphocyte # 0.95 X10^3/ul (4.0); Lymphocyte % 12.5 % (19-41); Mean Corp Hgb Conc 31.7 g/dL (32-36); Mean Corpuscular Hgb 30.7 pg (27.0-32.0); Mean Corpuscular Volume 96.6 fL (80-94); Mean Platelet Vol. 11.6 fl (6.2-12.0); Monocyte# 1.12 X10^3/uL; Monocyte% 14.7 % (0-10); NRBC Flagged by Analyzer 0 % (0-5); Neutrophil # 5.37 X10^3/uL (2.7-7.7); Neutrophil % 70.6 % (47-70); Platelet Count 169 K/mm3 (150-450); RBC Distribution Width SD 43.2 fl (35.1-43.9); Red Blood Count 4.11 M/mm3 (4.6-6.2); White Blood Count 7.6 K/mm3 (4.4-11.0)
[2020-07-17 18:19] LABS: Anion Gap 6 (5-15); BUN 32 mg/dL (7-18); BUN/Creat Ratio 22.9 RATIO (10-20); Calcium,Total 8.6 mg/dL (8.5-10.1); Chloride 106 mmol/L (98-107); EST Glomerular Filtration Rate 51 mL/min (>60); Est Glom Filt Rate - Afr Amer 62 mL/min (>60); Estimated Creatinine Clearance 44.39 ml/min; Glucose 104 mg/dL (74-106); International Normalized Ratio 3.2; Potassium 4.2 mmol/L (3.5-5.1); Prothrombin Time (Protime)PT. 32.4 SECONDS (11.7-14.9); Sodium Level 138 mmol/L (136-145)
--- NOTE | 2020-07-17 18:22 | ED.RN ---
PER PT , PT HAS BEEN EXPERIENCING FATIGUE, AND SLEEPING MORE THE LAST COUPLE OF DAYS.
[2020-07-17 18:32] LABS: BNP,B-Type NATRIURETIC PEPTIDE 664.4 pg/mL (0-100)
--- NOTE | 2020-07-17 19:41 | HP.PCM_ITS ---
Problem List (1) CHF (congestive heart failure) Status: Acute (2) RBBB (right bundle branch block) Status: Chronic (3) Abdominal aortic aneurysm without rupture Status: Chronic (4) Thoracic aortic aneurysm without rupture Status: Chronic (5) Chronic diastolic heart failure Status: Chronic (6) Atherosclerotic heart disease of [place] coronary artery without angina pectoris Status: Chronic Qualifiers: [place] vs. transplanted heart: [place] heart Qualified Code(s): I25.10 - Atherosclerotic heart disease of [place] coronary artery without angina pectoris Comment: Mild (7) Atrial flutter, chronic Status: Chronic (8) Essential hypertension Status: Chronic (9) History of aortic valve replacement with bioprosthetic valve Status: Chronic Comment: 25mm Meena Warner Bovine pericardial aortic valve @ [facility] 08/09/17 (10) Hyperlipidemia Status: Chronic Qualifiers: Hyperlipidemia type: unspecified Qualified Code(s): E78.5 - Hyperlipidemia, unspecified History of Present Illness Date of Admission: 07/17/20 Chief Complaint: Shortness of breath The patient is a 84 year old M with a significant history of bovine aortic valve replacement; atrial fibrillation; and congestive heart failure who presents emergency department with 2 to 3 weeks history of progressively worsening shortness of breath. At rest he denies any shortness of breath but with mild exertion he has significant shortness of breath. In between walking a flight of steps he has to stop and rest. At the emergency department while patient shoes was being taken off reportedly he had shortness of breath. Associated with his symptoms is lethargy for which he has been sleeping so much. He denies any change in weight or swelling. Emergency department reportedly discussed the case with cardiology on-call who said the patient should be observed overnight; cardiac enzymes trended; diuresed and for patient's cardiology to see patient in a.m. Past Medical History Past Medical History (Chronic Problems): Chronic Problems (Last Reviewed 07/17/20 @ 19:[address] Mayco Williamson MD) RBBB (right bundle branch block) (Chronic) Abdominal aortic aneurysm without rupture (Chronic) Thoracic aortic aneurysm without rupture (Chronic) Chronic diastolic heart failure (Chronic) Atherosclerotic heart disease of [place] coronary artery without angina pectoris (Chronic) Mild Atrial flutter, chronic (Chronic) Essential hypertension (Chronic) History of aortic valve replacement with bioprosthetic valve (Chronic ~08/10/07) 25mm Meena Warner Bovine pericardial aortic valve @ [facility] 08/09/17 Hyperlipidemia (Chronic) Medical History: Medical History (Last Reviewed 07/17/20 @ 22:[address] Mayco Williamson MD) RBBB (right bundle branch block) (Chronic) I45.10 Abdominal aortic aneurysm without rupture (Chronic) I71.4 Thoracic aortic aneurysm without rupture (Chronic) I71.2 Chronic diastolic heart failure (Chronic) I50.32 Atherosclerotic heart disease of [place] coronary artery without angina pectoris (Chronic) I25.10 Mild Atrial flutter, chronic (Chronic) I48.92 Essential hypertension (Chronic) I10 Ataxia (Inactive) R27.0 Hyperlipidemia (Chronic) E78.5 CVA (cerebral vascular accident) I63.9 History of bicuspid aortic valve Z87.74 Atrial fibrillation and flutter I48.91, I48.92 TIA (transient ischemic attack) Inguinal hernia (Resolved) K40.90 Allergies codeine Allergy (Severe, Verified 07/17/20 17:19) hives Home Medications: Ambulatory Orders Medication Instructions Recorded Multivitamins,Ther W-Minerals 0.5 tab PO BID 02/15/14 [Multivitamin With Minerals ([facility])] Clopidogrel Bisulfate [Plavix] 75 mg PO DAILY 05/06/17 Warfarin [Coumadin] 2 mg PO SUTUTHSA 05/06/17 furosemide 20 mg tablet 20 mg PO QODAY tab 06/01/19 spironolactone 25 mg tablet 25 mg PO MOWEFR tab 06/01/19 metoprolol tartrate 25 mg tablet 25 mg PO BID #180 tab 10/27/19 Simvastatin [Zocor] 20 mg PO QHS 07/17/20 Warfarin Sodium 1 mg PO MOWEFR 07/17/20 Surgical History: Surgical History (Last Reviewed 07/17/20 @ 19:[address] Mayco Williamson MD) History of aortic valve replacement with bioprosthetic valve (Chronic) Onset Date: ~08/10/07 Z95.3 25mm Meena Warner Bovine pericardial aortic valve @ [facility] 08/09/17 History of tonsillectomy Z90.89 History of inguinal hernia repair Z98.890, Z87.19 Surgical History: herniorrhaphy, tonsillectomy, - - porcine AVR Psychiatric History: No pertinent psych hx Lives: Spouse/ Significant Other Smoking Status: Current every day smoker Tobacco Use: Cigarettes - *Family History Maternal Family History: Family History (Last Reviewed 07/17/20 @ 19:[address] Mayco Williamson MD) Father Myocardial infarction, Onset Age: 82 Brother Heart disease History Items: Heart Disease Paternal Family History: Family History (Last Reviewed 07/17/20 @ 19:[address] Mayco Williamson MD) Father Myocardial infarction, Onset Age: 82 Brother Heart disease History Items: Heart Disease Review of Systems Constitutional: Reports: Fatigue. Denies: Chills, Fever, Weight Change HEENT: Denies: Head Aches, Sinus Congestion, Sinus Drainage Cardiovascular: Denies: Palpitations Respiratory: Reports: Cough, Shortness of breath upon exertion, Sputum pr oduction Gastrointestinal: Denies: Abdominal Pain, Nausea, Vomiting Genitourinary: Denies: Dysuria Musculoskeletal: Denies: Joint Pain, Joint Tenderness Skin: Denies: Rash, Wounds Neurological: Denies: Numbness, Tingling, Focal weakness Psychiatric: Denies: Anxiety, Depression, Homicidal Ideations, Suicidal Ideations Hematologic/ Lymphatic: Denies: Easy Bruising, Easy Bleeding VTE Information - Inpt Only VTE Present on Admission: No VTE Mechan Device Prophylaxis: None VTE Pharm Prophylaxis ordered?: No Reason prophylaxis not ordered:: Treatment Not Indicated - Home Coumadin continued Patient Problems: Active and Suspected Problems (Last Reviewed 07/17/20 @ 19:[address] Mayco Williamson MD) CHF (congestive heart failure) (Acute) - Physical Exam Vitals/I&O's: Vital Signs Temp Pulse Resp BP Pulse Ox 99.2 F H 82 19 H 134/51 H 96 07/17/20 18:21 07/17/20 19:15 07/17/20 19:15 07/17/20 19:15 07/17/20 19:15 Oxygen Delivery Method Room Air Weight: 95 kg Body Mass Index (BMI) 27.6 Finger Stick Blood Glucose 106 General: Alert, Oriented x3, Cooperative HEENT: Atraumatic, PERRLA, EOMI, Normocephalic Neck: Supple, No JVD, Negative Carotid Bruits Lungs: Clear to auscultation, Normal air movement, No rhonchi, No wheeze, No rales Cardiovascular: Normal S1, Normal S2, No murmurs, Irregular Rate Abdomen: Bowel Sounds Present, Soft, Non Tender Extremities: No edema, Capillary Refill Less than 3 Seconds Skin: No rashes, No breakdown Musculoskeletal: No Tenderness to Palpation of Joints or Extremities Neurological: Cranial nerves II-XII grossly intact Psych/Mental Status: Normal Affect, Appropriate Microbiology Past 72 Hours 07/17/20 17:37 Mucosa - Nose SARS-CoV-2 Antigen (Rapid) - Final Laboratory Results 07/17/20 17:43: WBC 7.6, RBC 4.11 L, Hgb 12.6 L, Hct 39.7 L, MCV 96.6 H, MCH 30 .7, MCHC 31.7 L, RDW Std Deviation 43.2, RDW Coeff of Alfonso 12.0, Plt Count 169, MPV 11.6, Immature Gran % (Auto) 0.300, Neut % (Auto) 70.6 H, Lymph % (Auto) 12.5 L, [place] % (Auto) 14.7 H, Eos % (Auto) 1.6, Baso % (Auto) 0.3, Absolute Neuts (auto) 5.4, Absolute Lymphs (auto) 0.95, Nucleated RBC % 0 07/17/20 17:43: PT 32.4 H, INR 3.2 07/17/20 17:43: Sodium 138, Potassium 4.2, Chloride 106, Carbon Dioxide 26.0, Anion Gap 6, BUN 32 H, Creatinine 1.40 H, Estim Creat Clear Calc 44.39, Est GFR (MDRD) Af Amer 62, Est GFR (MDRD) Non-Af 51 L, BUN/Creatinine Ratio 22.9 H, Glucose 104, Calcium 8.6, Troponin I 0.021 07/17/20 17:43: B-Natriuretic Peptide 664.4 H Assessment/Plan All Active Problems (Last Reviewed 07/17/20 @ 19:[address] Mayco Williamson MD) CHF (congestive heart failure) (Acute) Inguinal hernia (Resolved) The patient is a 84 year old M with a significant history of bovine aortic valve replacement; atrial fibrillation; and congestive heart failure who presents to the emergency department with 2 to 3 weeks history of progressively worsening dyspnea on exertion. Acute exacerbation of heart failure with preserved ejection fraction Place on monitored bed at the progressive care unit. Weight on admission to the floor; and then daily Strict I&O's Radiologist impression of chest x-ray: No active disease. Actual chest x-ray image was independently reviewed. I agree with radiologist interpretation. BNP: 664.4 Lasix 40 mg IV given at emergency department and continued on twice daily basis. Hold home p.o. Lasix. Last echocardiogram on 03/08/2020: Estimated ejection fraction 60%. Diastolic dysfunction was unable to be assessed. Right ventricular systolic pressure was 42. Mild mitral valve insufficiency. Right atrium was mildly enlarged. Stable appearing bioprosthetic aortic valve apparatus. Monitor electrolytes and renal function Trend blood pressure Fluid restriction of 1500 mls daily Cardiac diet ordered Mucinex ordered. Per on-call cardiology recommendation will trend cardiac enzymes and consult mechanical and auto body car checker in a.m. Chronic atrial fibrillation In A. fib but rate controlled on presentation He reports INR goal of 2.5-3.5. INR is 3.2. Coumadin continued. Trend INR. Metoprolol continued. History of CVA Plavix and Coumadin continued DVT prophylaxis Not indicated since patient is therapeutic on his Coumadin. OBSV E&M: 90388 Initial observation care L3
[2020-07-17] MEDS: Furosemide 40 MG/4 ML Vial IV (19:45)
[2020-07-17] MEDS: Metoprolol Tartrate 25 MG Tablet PO (22:42)
[2020-07-17] MEDS: Atorvastatin Calcium 10 MG Tablet PO (22:43)
[2020-07-17] MEDS: guaiFENesin 1,200 MG Tablet 1200 MG PO (22:43)
[2020-07-18] VITALS (12 sets, daily range): BP systolic 98–117; BP diastolic 33–64; PULSE 60–90; RESP 16–20; TEMP 36.7–37.2; O2SAT 92–95
[2020-07-18 07:15] LABS: Absolute Lymphocyte Count 1.17 X10^3/uL (0.83-4.51); Basophil# 0.01 X10^3/uL; Basophil% 0.2 % (0-1); Eosinophils% 3.2 % (0-5); Hematocrit 34.8 % (40-54); Hemoglobin 11.3 g/dL (13.0-16.5); Lymphocyte # 1.17 X10^3/ul (4.0); Lymphocyte % 18.7 % (19-41); Mean Corp Hgb Conc 32.5 g/dL (32-36); Mean Corpuscular Hgb 31.4 pg (27.0-32.0); Mean Corpuscular Volume 96.7 fL (80-94); Mean Platelet Vol. 11.9 fl (6.2-12.0); Monocyte% 14.4 % (0-10); NRBC Flagged by Analyzer 0 % (0-5); Neutrophil # 3.95 X10^3/uL (2.7-7.7); Neutrophil % 63.2 % (47-70); Platelet Count 147 K/mm3 (150-450); RBC Distribution Width CV 12.1 % (11.6-14.6); RBC Distribution Width SD 42.9 fl (35.1-43.9); White Blood Count 6.3 K/mm3 (4.4-11.0)
[2020-07-18 07:30] LABS: International Normalized Ratio 3.4
[2020-07-18 07:32] LABS: Anion Gap 6 (5-15); BUN 29 mg/dL (7-18); BUN/Creat Ratio 25.9 RATIO (10-20); Calcium,Total 8.1 mg/dL (8.5-10.1); Chloride 109 mmol/L (98-107); Creatinine, Serum 1.12 mg/dL (0.70-1.30); EST Glomerular Filtration Rate 66 mL/min (>60); Est Glom Filt Rate - Afr Amer 80 mL/min (>60); Estimated Creatinine Clearance 55.49 ml/min; Glucose 109 mg/dL (74-106); Potassium 3.9 mmol/L (3.5-5.1); Sodium Level 140 mmol/L (136-145)
--- NOTE | 2020-07-18 07:37 | ECHOCS_ITS ---
Reason For Study: Valve Replacement Eval Procedure This was a 2D Doppler, Color Flow transthoracic echocardiogram. The study was technically difficult. Contrast injection was performed. Exam performed portable in patient room. Left Ventricle Normal LV size. Left ventricular systolic function is normal. The estimated ejection fraction is 55 %. Post operative septal motion. Unable to assess diastolic dysfunction. Mid-inferoseptal : Hypokinetic. Mid-anteroseptal : Hypokinetic. Right Ventricle Normal RV size. Normal systolic function. Atria The left atrium is moderately enlarged. The right atrium is moderately enlarged. No doppler evidence for ASD. Mitral Valve There is no mitral annular calcification. Anterior leaflet diffuse mitral valve thickening. Mild focal mitral valve calcification of the anterior leaflet. Mild (1+) mitral valve insufficiency. Tricuspid Valve Normal tricuspid valve. Mild tricuspid valve insufficiency. Right ventricular systolic pressure estimated to be 38 mmHg. Aortic Valve Mild (1+) eccentric aortic valve insufficiency. Stable appearing bioprosthetic aortic valve apparatus. Pulmonic Valve The pulmonic valve is not well visualized. Mild (1+) pulmonic valve insufficiency. Great Vessels Mildly dilated aortic root. Pericardium/Pleural No pericardial effusion. Medication Diluted definity 3ml given slow IV push to enhance endocardial definition. MMode/2D Measurements & Calculations LVIDd: 5.1 cm IVSd: 1.5 cm LVOT diam: 2.3 cm LVIDs: 2.9 cm LVPWd: 1.2 cm FS: 43.2 % LVOT area: 4.2 cm2 Ao root diam: 4.1 cm LAV(MOD-bp): 98.7 ml LA A4 area: 27.9 cm2 ACS: 1.8 cm LAV(MOD-bp) Indexed: 45.4 ml/m2 LA dimension: 5.6 cm LAV(MOD-sp2): 94.7 ml LAV(MOD-sp4): 96.9 ml RA A4 area: 25.5 cm2 Doppler Measurements & Calculations MV E max zander: 117.6 cm/sec Ao V2 max: 225.0 cm/sec LV V1 max: 165.3 cm/sec Ao max P.4 mmHg LV V1 max P.9 mmHg Ao V2 mean: 143.5 cm/sec LV V1 mean P.3 mmHg Ao mean P.7 mmHg LV V1 mean: 106.0 cm/sec Ao V2 VTI: 46.8 cm LV V1 VTI: 35.[address](I,D): 3.[address](V,D): 3.1 cm2 SV(LVOT): 150.8 ml PA V2 max: 71.3 cm/sec TR max zandre: 296.2 cm/sec TR max P.1 mmHg Interpretation Summary The study was technically difficult. Contrast injection was performed. Left ventricular systolic function is normal. The estimated ejection fraction is 55 %. Post operative septal motion. The left atrium is moderately enlarged. The right atrium is moderately enlarged. Anterior leaflet diffuse mitral valve thickening. Mild focal mitral valve calcification of the anterior leaflet. Mild (1+) mitral valve insufficiency. Mild tricuspid valve insufficiency. Stable appearing bioprosthetic aortic valve apparatus. Mild (1+) eccentric aortic valve insufficiency. Mild (1+) pulmonic valve insufficiency. Mildly dilated aortic root. Right ventricular systolic pressure estimated to be 38 mmHg. Unable to assess diastolic dysfunction. Ordering Physician: Dwayne Garcia Referring Physician: CAYDEN Richards M.D. Performed By: Nuno Raymundo RCS
[2020-07-18] MEDS: guaiFENesin 1,200 MG Tablet 1200 MG PO ×2 (08:44→21:26)
[2020-07-18] MEDS: Spironolactone 25 MG Tablet PO (08:44)
[2020-07-18] MEDS: Clopidogrel Bisulfate 75 MG Tablet PO (08:44)
[2020-07-18] MEDS: Metoprolol Tartrate 25 MG Tablet PO ×2 (08:44→21:25)
[2020-07-18] MEDS: 0.9% Saline Lock 10 ML Syringe IV (12:54)
[2020-07-18] MEDS: Furosemide 20 MG/2 ML VIAL IV ×2 (12:54→18:45)
[2020-07-18] MEDS: Jantoven 2 MG Tablet PO (16:30)
--- NOTE | 2020-07-18 17:35 | PCM.CONS.C ---
Problem List (1) CHF (congestive heart failure) Status: Acute Qualifiers: Heart failure type: diastolic Heart failure chronicity: acute on chronic Qualified Code(s): I50.33 - Acute on chronic diastolic (congestive) heart failure (2) History of aortic valve replacement with bioprosthetic valve Status: Chronic Comment: 25mm Meena Warner Bovine pericardial aortic valve @ [facility] 08/09/17 (3) Atherosclerotic heart disease of [place] coronary artery without angina pectoris Status: Chronic Qualifiers: [place] vs. transplanted heart: [place] heart Qualified Code(s): I25.10 - Atherosclerotic heart disease of [place] coronary artery without angina pectoris Comment: Mild (4) Atrial fibrillation and flutter Status: Acute (5) Thoracic aortic aneurysm without rupture Status: Chronic (6) Abdominal aortic aneurysm without rupture Status: Chronic (7) Hyperlipidemia Status: Chronic Qualifiers: Hyperlipidemia type: unspecified Qualified Code(s): E78.5 - Hyperlipidemia, unspecified (8) Essential hypertension Status: Chronic Reason for Consult Date of Consultation: 07/18/20 History of Present Illness: The patient is a 84 year [id number] white male with a past cardiovascular history of aortic valve disease status post aortic valve replacement-bioprosthetic, CAD-previously reported as mild and not requiring revascularization therapy, atrial fibrillation/flutter, thoracic aortic aneurysm-ascending, abdominal aortic aneurysm-without rupture, hyperlipidemia, hypertension who presents for concerns of acute on chronic diastolic mediated CHF. He states his main concern that he has been progressively short of breath and dyspneic with activity such as going up an incline. He does not necessarily describe ongoing symptoms of resting or nocturnal shortness of breath/dyspnea nor does he describe classic orthopnea or PND and he has not had complaints of ongoing significant lower extremity peripheral pitting edema. There has been no reports of near syncope or syncope. Based upon his ongoing symptoms, which have been going on for weeks, but seem to worsen recently with concerns of a cough with some sputum production, he elected to present to his PCP for further evaluation. However his PCP instructed him to present to the hospital for further evaluation as opposed to his office. He was evaluated in the emergency department. There were concerns at that time based upon his history and exam and his BTNP level that he had evidence of acute on chronic diastolic mediated CHF. Was placed in the hospital for further evaluation and care. He has been undergoing cardiac enzymes which have demonstrated negative troponin I levels. His ECG appeared to demonstrate atrial fibrillation with a right bundle branch block pattern. His chest x-ray was reported as demonstrating no acute findings. He has been treated with IV diuretic therapy. He has subsequently undergone additional evaluation with a follow-up transthoracic echocardiogram. The results are as noted below. [] Past Medical History Allergies/Adverse Reactions: Allergies codeine Allergy (Severe, Verified 07/17/20 17:19) hives Home Medications: Ambulatory Orders Medication Instructions Recorded Multivitamins,Ther W-Minerals 0.5 tab PO BID 02/15/14 [Multivitamin With Minerals ([facility])] Clopidogrel Bisulfate [Plavix] 75 mg PO DAILY 05/06/17 Warfarin [Coumadin] 2 mg PO SUTUTHSA 05/06/17 furosemide 20 mg tablet 20 mg PO QODAY tab 06/01/19 spironolactone 25 mg tablet 25 mg PO MOWEFR tab 06/01/19 metoprolol tartrate 25 mg tablet 25 mg PO BID #180 tab 10/27/19 Simvastatin [Zocor] 20 mg PO QHS 07/17/20 Warfarin Sodium 1 mg PO MOWEFR 07/17/20 Past Medical History (Chronic Problems): Chronic Problems (Last Reviewed 07/17/20 @ 22:[address] Mayco Williamson MD) RBBB (right bundle branch block) (Chronic) Abdominal aortic aneurysm without rupture (Chronic) Thoracic aortic aneurysm without rupture (Chronic) Chronic diastolic heart failure (Chronic) Atherosclerotic heart disease of [place] coronary artery without angina pectoris (Chronic) Mild Atrial flutter, chronic (Chronic) Essential hypertension (Chronic) History of aortic valve replacement with bioprosthetic valve (Chronic ~08/10/07) 25mm Meena Warner Bovine pericardial aortic valve @ [facility] 08/09/17 Hyperlipidemia (Chronic) Surgical History: herniorrhaphy, tonsillectomy, - - porcine AVR Psychiatric History: No pertinent psych hx - *Family History Maternal Family History: Family History (Last Reviewed 07/17/20 @ 19:[address] Mayco Williamson MD) Father Myocardial infarction, Onset Age: 82 Brother Heart disease History Items: Heart Disease Paternal Family History: Family History (Last Reviewed 07/17/20 @ 19:[address] Mayco Williamson MD) Father Myocardial infarction, Onset Age: 82 Brother Heart disease History Items: Heart Disease Lives: Spouse/ Significant Other Smoking Status: Never smoker Tobacco Use: Cigarettes Review of Systems - Review of Systems General: Reports: Fatigue. Denies: Fever, Night Sweats Cardiovascular: Reports: Shortness of Breath, Shortness of Breath with Exertion. Denies: Chest Discomfort, Orthopnea, PND, Peripheral Edema, Palpitations, Lightheadedness, Dizziness, Near Syncope, Syncope Respiratory: Reports: Sputum Production, Shortness of Breath. Denies: Cough, Hemoptysis Gastrointestinal: Denies: Hematemesis, Hematochezia, Melena Genitourinary: Denies: Dysuria, Hematuria Skin: Denies: Rash Subjectve: This is an 84-year-old white male who appears to be resting comfortably at the moment in no acute distress. Objective: Vital Signs Temp Pulse Resp BP Pulse Ox 98.5 F 66 18 116/44 L 95 07/18/20 16:00 07/18/20 16:00 07/18/20 16:00 07/18/20 16:00 07/18/20 16:00 Oxygen Delivery Method Room Air Weight: 205 lb 0.478 oz Body Mass Index (BMI) 27.3 Finger Stick Blood Glucose 106 Intake and Output for Last 24 Hours 07/16/20 07/17/20 07/18/20 23:59 23:59 23:59 Intake Total 120 / 120 360 / 360 Output Total 100 / 100 Balance 120 / 120 260 / 260 General: Awake, Alert, Oriented x 3, Cooperative, No Acute Distress HEENT: Atraumatic, Normocephalic, PERRL, EOMI, Sclera Non Icteric Neck: Supple, Good ROM, No JVD Lungs: Diminished Right Base, Rales - Right Base Cardiovascular: Irregular Rhythm, Normal S1, Normal S2 Abdomen: Bowel Sounds Present, Soft Extremities: Trace RLE Edema, Trace LLE Edema Neurological: No Focal Motor or Sensory Deficit Psych/Mental Status: Appropriate 07/17/20 17:43: WBC 7.6, RBC 4.11 L, Hgb 12.6 L, Hct 39.7 L, MCV 96.6 H, MCH 30.7, MCHC 31.7 L, Plt Count 169, MPV 11.6, Immature Gran % (Auto) 0.300, Neut % (Auto) 70.6 H, Lymph % (Auto) 12.5 L, [place] % (Auto) 14.7 H, Eos % (Auto) 1.6, Baso % (Auto) 0.3, Absolute Neuts (auto) 5.4, Nucleated RBC % 0 07/17/20 17:43: PT 32.4 H, INR 3.2 07/17/20 17:43: Sodium 138, Potassium 4.2, Chloride 106, Carbon Dioxide 26.0, Anion Gap 6, BUN 32 H, Creatinine 1.40 H, Est GFR (MDRD) Af Amer 62, Est GFR (MDRD) Non-Af 51 L, BUN/Creatinine Ratio 22.9 H, Glucose 104, Calcium 8.6, Troponin I 0.021 07/17/20 17:43: B-Natriuretic Peptide 664.4 H 07/17/20 21:11: Troponin I 0.023 07/17/20 23:46: Troponin I 0.025 07/18/20 05:50: WBC 6.3, RBC 3.60 L, Hgb 11.3 L, Hct 34.8 L, MCV 96.7 H, MCH 31.4, MCHC 32.5, Plt Count 147 L, MPV 11.9, Immature Gran % (Auto) 0.300, Neut % (Auto) 63.2, Lymph % (Auto) 18.7 L, [place] % (Auto) 14.4 H, Eos % (Auto) 3.2, Baso % (Auto) 0.2, Absolute Neuts (auto) 4.0, Nucleated RBC % 0 07/18/20 05:50: PT 34.0 H, INR 3.4 07/18/20 05:50: Sodium 140, Potassium 3.9, Chloride 109 H, Carbon Dioxide 25.0, Anion Gap 6, BUN 29 H, Creatinine 1.12, Est GFR (MDRD) Af Amer 80, Est GFR (MDRD) Non-Af 66, BUN/Creatinine Ratio 25.9 H, Glucose 109 H, Calcium 8.1 L Rhythm: Atrial fibrillation EKG: As noted above ECHO: Interpretation Summary The study was technically difficult. Contrast injection was performed. Left ventricular systolic function is normal. The estimated ejection fraction is 55 %. Post operative septal motion. The left atrium is moderately enlarged. The right atrium is moderately enlarged. Anterior leaflet diffuse mitral valve thickening. Mild focal mitral valve calcification of the anterior leaflet. Mild (1+) mitral valve insufficiency. Mild tricuspid valve insufficiency. Stable appearing bioprosthetic aortic valve apparatus. Mild (1+) eccentric aortic valve insufficiency. Mild (1+) pulmonic valve insufficiency. Mildly dilated aortic root. Right ventricular systolic pressure estimated to be 38 mmHg. Unable to assess diastolic dysfunction. Stress Test: 11-25-2016: [facility] Stress myocardial perfusion study: Considered negative for evidence of stress-induced myocardial ischemia with a gated LVEF reported at 69% Cardiac Cath: 08-05-2007: [facility] LAD with separate ostia from the LCx: 20% stenosis LCx: Normal RCA: Normal CT Surgery: 08-05-2007: [facility] 25 mm Meena-Warner bovine pericardial valve CXR: Preliminary evaluation: Post open heart surgery changes: Please see official report Assessment/Plan 1. 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 He is being followed for such and treated for such with IV furosemide therapy. He will need to be followed by history, exam, as well as his electrolytes and renal function. His medications will have to be adjusted as needed. However, the patient has symptoms that appear to occur with exertion that do raise concerns of the possibility of an exertional angina pectoris equivalent above and beyond concerns of underlying CHF. Thus the patient may need to be considered for further evaluation of his coronary anatomy as well after he has improved with respect to his volume status, etc. Depending upon his clinical course this may include noninvasive or invasive studies. If it does come to an invasive evaluation such as a diagnostic cardiac catheterization then he will need interruption of his anticoagulant therapy. 2. Status post aortic valve replacement-bioprosthetic The patient underwent aortic valve replacement in 2007 at [facility] with a 25 mm Meena-Warner pericardial bovine valve. He has been followed since then noninvasively. Based upon his echocardiographic studies it appears his aortic valve prosthesis is stable at this time. He will need to continue AHA antibiotic prophylaxis. He will need to be followed for any significant changes based upon his history, examination, and future echocardiographic studies. 3. CAD He has been described in the past as having single-vessel mild CAD as described on his cardiac catheterization report. Again some of his symptoms raise concern of an exertional angina pectoris equivalent. Thus as his course progresses he may need to be considered for reevaluation of his CAD status either noninvasively and/or invasively. In the meantime he can continue medical therapy as deemed appropriate. 4. Atrial fibrillation/flutter He has a history of atrial fibrillation/flutter. He will need to continue rate control therapy and anticoagulant therapy unless otherwise needing to be interrupted for additional studies. 5. Thoracic aortic aneurysm He has had dilatation of his ascending thoracic aorta. He has been followed by noninvasive studies. 6. Abdominal aortic aneurysm He has been reported as having abdominal aortic aneurysm as well followed by noninvasive studies by his other physicians. 7. Hyperlipidemia He will need to continue risk factor evaluation and care. 8. Hypertension His blood pressure will need to be followed with adjustment of medications as tolerated. Comment: The patient's case has been previously discussed and reviewed with the patient with his spouse present. This note was generated using a voice recognition system and there may be incorrect words, spelling or punctuation that were not noted when reviewing the office note prior to saving.
--- NOTE | 2020-07-18 17:59 | PN_ITS ---
Patient Problems: Active and Suspected Problems (Last Reviewed 07/17/20 @ 22:[address] Mayco Williamson MD) CHF (congestive heart failure) (Acute) Atrial fibrillation and flutter (Acute) Reason for Visit: Follow-up with acute CHF Subjective: Patient was seen and examined. He feels much improved. Her 2D echo showed an EF of 55%, mild valvular abnormalities. Objective: Physical exam: General: Alert, Oriented x3, Cooperative HEENT: Atraumatic, PERRLA, EOMI, Normocephalic Neck: Supple, No JVD, Negative Carotid Bruits Lungs: Clear to auscultation, Normal air movement, No rhonchi, No wheeze, No rales Cardiovascular: Normal S1, Normal S2, No murmurs, Irregular Rate Abdomen: Bowel Sounds Present, Soft, Non Tender Extremities: No edema, Capillary Refill Less than 3 Seconds Skin: No rashes, No breakdown Musculoskeletal: No Tenderness to Palpation of Joints or Extremities Neurological: Cranial nerves II-XII grossly intact Psych/Mental Status: Normal Affect, Appropriate Vitals/I&O's: Vital Signs Temp Pulse Resp BP Pulse Ox 98.5 F 66 18 116/44 L 95 07/18/20 16:00 07/18/20 16:00 07/18/20 16:00 07/18/20 16:00 07/18/20 16:00 Oxygen Delivery Method Room Air Weight: 93 kg Body Mass Index (BMI) 27.3 Finger Stick Blood Glucose 106 Intake and Output for Last 24 Hours 07/16/20 07/17/20 07/18/20 23:59 23:59 23:59 Intake Total 120 / 120 360 / 360 Output Total 100 / 100 Balance 120 / 120 260 / 260 Microbiology Past 72 Hours 07/17/20 17:37 Mucosa - Nose SARS-CoV-2 Antigen (Rapid) - Final Laboratory Results 07/17/20 17:43: WBC 7.6, RBC 4.11 L, Hgb 12.6 L, Hct 39.7 L, MCV 96.6 H, MCH 30.7, MCHC 31.7 L, RDW Std Deviation 43.2, RDW Coeff of Alfon[place] 12.0, Plt Count 169, MPV 11.6, Immature Gran % (Auto) 0.300, Neut % (Auto) 70.6 H, Lymph % (Auto) 12.5 L, [place] % (Auto) 14.7 H, Eos % (Auto) 1.6, Baso % (Auto) 0.3, Absolute Neuts (auto) 5.4, Absolute Lymphs (auto) 0.95, Nucleated RBC % 0 07/17/20 17:43: PT 32.4 H, INR 3.2 07/17/20 17:43: Sodium 138, Potassium 4.2, Chloride 106, Carbon Dioxide 26.0, Anion Gap 6, BUN 32 H, Creatinine 1.40 H, Estim Creat Clear Calc 44.39, Est GFR (MDRD) Af Amer 62, Est GFR (MDRD) Non-Af 51 L, BUN/Creatinine Ratio 22.9 H, Glucose 104, Calcium 8.6, Troponin I 0.021 07/17/20 17:43: B-Natriuretic Peptide 664.4 H 07/17/20 21:11: Troponin I 0.023 07/17/20 23:46: Troponin I 0.025 07/18/20 05:50: WBC 6.3, RBC 3.60 L, Hgb 11.3 L, Hct 34.8 L, MCV 96.7 H, MCH 31.4, MCHC 32.5, RDW Std Deviation 42.9, RDW Coeff of [place] 12.1, Plt Count 147 L, MPV 11.9, Immature Gran % (Auto) 0.300, Neut % (Auto) 63.2, Lymph % (Auto) 18.7 L, [place] % (Auto) 14.4 H, Eos % (Auto) 3.2, Baso % (Auto) 0.2, Absolute Neuts (auto) 4.0, Absolute Lymphs (auto) 1.17, Nucleated RBC % 0 07/18/20 05:50: PT 34.0 H, INR 3.4 07/18/20 05:50: Sodium 140, Potassium 3.9, Chloride 109 H, Carbon Dioxide 25.0, Anion Gap 6, BUN 29 H, Creatinine 1.12, Estim Creat Clear Calc 55.49, Est GFR (MDRD) Af Amer 80, Est GFR (MDRD) Non-Af 66, BUN/Creatinine Ratio 25.9 H, Glucose 109 H, Calcium 8.1 L Current Medications Acetaminophen (Acetaminophen 325 Mg Tablet) 650 mg PO Q6H PRN PRN PRN Reason: Pain Score 1-10/Temp > 100.7 F Atorvastatin Calcium (Atorvastatin Calcium 10 Mg Tablet) 10 mg PO QHS [facility] Last Admin: 07/17/20 22:43 Dose: 10 mg Documented by: Clopidogrel Bisulfate (Clopidogrel Bisulfate 75 Mg Tablet) 75 mg PO DAILY [facility] Last Admin: 07/18/20 08:44 Dose: 75 mg Documented by: Furosemide (Furosemide 20 Mg Tablet) 20 mg PO DAILY [facility] Guaifenesin (Guaifenesin 1,200 Mg Tablet) 1,200 mg PO BID [facility] Last Admin: 07/18/20 08:44 Dose: 1,200 mg Documented by: Melatonin (Melatonin 3 Mg Tablet) 3 mg PO QHS PRN PRN PRN Reason: INSOMNIA Metoprolol Tartrate (Metoprolol Tartrate 25 Mg Tablet) 25 mg PO BID [facility] Last Admin: 07/18/20 08:44 Dose: 25 mg Documented by: Ondansetron HCl (Ondansetron 4 Mg/2 Ml Vial) 4 mg IV Q8H PRN PRN PRN Reason: NAUSEA/VOMITING Senna/Docusate Sodium (Senna/Docusate Sodium 1 Tablet) 2 tablet PO BID PRN PRN PRN Reason: Constipation Sodium Chloride (0.9% Saline Lock 10 Ml Syringe) 10 - 40 ml IV UD PRN PRN Reason: SALINE FLUSH Last Admin: 07/18/20 12:54 Dose: 10 ml Documented by: Spironolactone (Spironolactone 25 Mg Tablet) 25 mg PO Q48H [facility] Last Admin: 07/18/20 08:44 Dose: 25 mg Documented by: Warfarin Sodium (Jantoven 2 Mg Tablet) 2 mg PO [id number]@1700 [facility] Last Admin: 07/18/20 16:30 Dose: 2 mg Documented by: Warfarin Sodium (Warfarin 1 Mg Tablet) 1 mg PO MoWeFr@1700 [facility] STROKE Vital Signs/Narrative: Vital Signs Temp Pulse Resp BP Pulse Ox 07/18/20 16:00 98.5 F 66 18 116/44 L 95 07/18/20 15:05 69 Medical Necessity - Tobacco Use Smoking Status: Never smoker Tobacco Use: Cigarettes Assessment/Plan All Active Problems (Last Reviewed 07/17/20 @ 22:[address] Mayco Williamson MD) CHF (congestive heart failure) (Acute) Atrial fibrillation and flutter (Acute) Inguinal hernia (Resolved) 1. Acute on chronic heart failure with preserved EF, improved 2D echo shows EF of 55% Patient blood pressure was relatively low, morning dose of Lasix reduced to 20 mg IV x1 Continue on Lasix 20 mg IV twice daily 2. Chronic atrial fibrillation, INR is at goal, 3.4 Hold hold Coumadin tonight, repeat INR in a.m. 3. History of CVA/hyperlipidemia, continue on Plavix, metoprolol, simvastatin, spironolactone 4. DVT prophylaxis?patient is on Coumadin Inpatient E&M: 68599 Subs Hosp L2
[2020-07-18] MEDS: Atorvastatin Calcium 10 MG Tablet PO (21:25)
[2020-07-19] VITALS (13 sets, daily range): BP systolic 106–117; BP diastolic 48–61; PULSE 54–85; RESP 16–18; TEMP 36.4–37; O2SAT 94–96
[2020-07-19 05:58] LABS: Absolute Lymphocyte Count 1.27 X10^3/uL (0.83-4.51); Absolute Neutrophil Count 3.9 X10^3/uL (2.0-7.7); Basophil# 0.02 X10^3/uL; Basophil% 0.3 % (0-1); Eosinophil# 0.23 X10^3/uL; Eosinophils% 3.6 % (0-5); Hematocrit 37.4 % (40-54); Lymphocyte # 1.27 X10^3/ul (4.0); Mean Corp Hgb Conc 32.1 g/dL (32-36); Mean Corpuscular Hgb 31.2 pg (27.0-32.0); Mean Corpuscular Volume 97.1 fL (80-94); Mean Platelet Vol. 11.6 fl (6.2-12.0); Monocyte# 0.92 X10^3/uL; Monocyte% 14.5 % (0-10); NRBC Flagged by Analyzer 0 % (0-5); Neutrophil # 3.89 X10^3/uL (2.7-7.7); Neutrophil % 61.3 % (47-70); Platelet Count 166 K/mm3 (150-450); RBC Distribution Width SD 42.3 fl (35.1-43.9); Red Blood Count 3.85 M/mm3 (4.6-6.2); White Blood Count 6.4 K/mm3 (4.4-11.0)
[2020-07-19 06:09] LABS: International Normalized Ratio 3.4; Prothrombin Time (Protime)PT. 34.2 SECONDS (11.7-14.9)
[2020-07-19 06:28] LABS: AST(SGOT) 25 U/L (15-37); Alanine Aminotransfer ALT/SGPT 33 U/L (16-61); Albumin, Serum 3.3 g/dL (3.2-5.0); Alkaline Phosphatase 62 U/L (45-117); Anion Gap 5 (5-15); BUN 32 mg/dL (7-18); BUN/Creat Ratio 23.5 RATIO (10-20); Calcium,Total 8.2 mg/dL (8.5-10.1); Chloride 107 mmol/L (98-107); Creatinine, Serum 1.36 mg/dL (0.70-1.30); EST Glomerular Filtration Rate 53 mL/min (>60); Est Glom Filt Rate - Afr Amer 64 mL/min (>60); Estimated Creatinine Clearance 45.69 ml/min; Globulin 3.3 g/dL (2.2-4.2); Glucose 101 mg/dL (74-106); Potassium 3.8 mmol/L (3.5-5.1); Protein, Total 6.6 g/dL (6.4-8.2); Sodium Level 139 mmol/L (136-145)
[2020-07-19] MEDS: Furosemide 20 MG Tablet PO (09:13)
[2020-07-19] MEDS: Metoprolol Tartrate 25 MG Tablet PO ×2 (09:14→21:14)
[2020-07-19] MEDS: Clopidogrel Bisulfate 75 MG Tablet PO (09:14)
[2020-07-19] MEDS: guaiFENesin 1,200 MG Tablet 1200 MG PO ×2 (09:14→21:14)
--- NOTE | 2020-07-19 09:19 | CASEMGMT ---
According to the [facility] website, the following are in-network tertiary facilities: [facility], [facility], [facility], [facility], [employer], and . Aric PALMER CM
--- NOTE | 2020-07-19 10:59 | PN.CARD_ITS ---
Subjectve: The patient is awake and alert. He denies ongoing resting chest discomfort/shortness of breath/dyspnea. He states he was up walking in the hallways. He states he cannot walk the length of the hallway without having to stop because he becomes short of breath and dyspneic. Objective: Vital Signs Temp Pulse Resp BP Pulse Ox 97.6 F L 85 16 117/50 L 94 07/19/20 09:13 07/19/20 09:14 07/19/20 09:13 07/19/20 09:14 07/19/20 09:13 Oxygen Delivery Method Room Air Weight: 202 lb 13.204 oz Body Mass Index (BMI) 27.3 Finger Stick Blood Glucose 106 Intake and Output for Last 24 Hours 07/17/20 07/18/20 07/19/20 23:59 23:59 23:59 Intake Total 120 / 120 810 / 810 0 / 0 Output Total 1525 / 1525 350 / 350 Balance 120 / 120 -715 / -715 -350 / -350 General: Awake, Alert, Oriented x 3, Cooperative, No Acute Distress HEENT: Atraumatic, Normocephalic, PERRL, EOMI, Sclera Non Icteric Neck: Supple, Good ROM, No JVD Lungs: Clear to auscultation Cardiovascular: Irregular Rhythm, Normal S1, Normal S2 Abdomen: Bowel Sounds Present, Soft Extremities: Trace RLE Edema, Trace LLE Edema Neurological: No Focal Motor or Sensory Deficit Psych/Mental Status: Appropriate 07/19/20 05:30: PT 34.2 H, INR 3.4 07/19/20 05:30: WBC 6.4, RBC 3.85 L, Hgb 12.0 L, Hct 37.4 L, MCV 97.1 H, MCH 31.2, MCHC 32.1, Plt Count 166, MPV 11.6, Immature Gran % (Auto) 0.300, Neut % (Auto) 61.3, Lymph % (Auto) 20.0, [place] % (Auto) 14.5 H, Eos % (Auto) 3.6, Baso % (Auto) 0.3, Absolute Neuts (auto) 3.9, Nucleated RBC % 0 07/19/20 05:30: Sodium 139, Potassium 3.8, Chloride 107, Carbon Dioxide 27.0, Anion Gap 5, BUN 32 H, Creatinine 1.36 H, Est GFR (MDRD) Af Amer 64, Est GFR (MDRD) Non-Af 53 L, BUN/Creatinine Ratio 23.5 H, Glucose 101, Calcium 8.2 L, To roge Bilirubin 0.80 Rhythm: Atrial fibrillation; PVCs Medical Necessity - Tobacco Use Smoking Status: Never smoker Tobacco Use: Cigarettes Assessment/Plan 1. 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 He is being followed for such and treated for such with IV furosemide therapy. He states despite his medical therapy he is still short of breath and dyspneic with activities such as walking down the hallway. There are concerns that there are symptoms related to a non-CHF etiology as previously mentioned upon with respect to concerns of possible underlying progressive CAD, etc. 2. Status post aortic valve replacement-bioprosthetic The patient underwent aortic valve replacement in 2007 at [facility] with a 25 mm Meena-Warner pericardial bovine valve. He has been followed since then noninvasively. Based upon his echocardiographic studies it appears his aortic valve prosthesis is stable at this time. He will need to continue AHA antibiotic prophylaxis. He will need to be followed for any significant changes based upon his history, examination, and future echocardiographic studies. 3. CAD He has been described in the past as having single-vessel mild CAD as described on his cardiac catheterization report. Again some of his symptoms raise concern of an exertional angina pectoris equivalent. Based upon his ongoing symptoms with minimal exertional activity such as walking down the hallway it was felt reasonable the patient should be further evaluated for progression of CAD with a diagnostic cardiac catheterization. 4. Atrial fibrillation/flutter He has a history of atrial fibrillation/flutter. He will need to continue rate control therapy and anticoagulant therapy unless otherwise needing to be interrupted for additional studies. 5. Thoracic aortic aneurysm He has had dilatation of his ascending thoracic aorta. He has been followed by noninvasive studies. 6. Abdominal aortic aneurysm He has been reported as having abdominal aortic aneurysm as well followed by noninvasive studies by his other physicians. 7. Hyperlipidemia He will need to continue risk factor evaluation and care. 8. Hypertension His blood pressure will need to be followed with adjustment of medications as tolerated. Comment: The patient's case has been previously discussed and reviewed with the patient with his spouse present (approximately 45 minutes of time spent with the patient and his spouse). At the present time the patient was agreeable to proceeding with further evaluation from a cardiac standpoint such as diagnostic cardiac catheterization. However, he requested to be transferred to the [facility] where he had his previous extensive cardiovascular evaluation and care in the p ast. Thus [facility] was contacted. They did accept the patient in transfer. The patient's case was also discussed and reviewed with Dr. Taylor. This note was generated using a voice recognition system and there may be incorrect words, spelling or punctuation that were not noted when reviewing the office note prior to saving.
--- NOTE | 2020-07-19 11:34 | CASEMGMT ---
Per ELVER Schwartz charge, plan is to transfer pt to [facility] but according to [employer] website, [facility] is not in-network and call was placed to the [facility] as well to clarify and per rep, [facility] is not in-network and they are considered a 'specialty' and auth would need to be obtained prior to transfer, ref #[id number]. Pt states that he had heart valve replacement done at [facility] back in 2007 but he is unsure what his insurance was at that time. Pt/ updated that [facility] is not in-network at this time and also updated on in-network tertiary facilities at this time. Per pt/, they would like pt transferred to in [place] instead. [facility] to clarify that they are in-network and per Adeline, is in-network at this time, ref # [id number]. Dr. Garcia and Dr. Taylor updated on all at this time, voice understanding. GUTIERREZ form to room and explanation given, pt voices understanding, and signs GUTIERREZ form at this time. Original to chart and copy to pt at this time. Pt voices no further questions/concerns/needs at this time. Aric PALMER CM
--- NOTE | 2020-07-19 14:45 | PHA.DC.MR ---
Pharmacy Service has performed discharge medication reconciliation for this patient. The patient's discharge medication list was reviewed for discrepancies and discrepancies were resolved. Home Medications Multivitamins,Ther W-Minerals [Multivitamin With Minerals (BKC)] 0.5 tab PO BID 02/15/14 Clopidogrel Bisulfate [Plavix] 75 mg PO DAILY 05/06/17 Warfarin [Coumadin] 2 mg PO SUTUTHSA 05/06/17 furosemide 20 mg tablet 20 mg PO QODAY tab 06/01/19 spironolactone 25 mg tablet 25 mg PO MOWEFR tab 06/01/19 metoprolol tartrate 25 mg tablet 25 mg PO BID #180 tab 10/27/19 Simvastatin [Zocor] 20 mg PO QHS 07/17/20 Warfarin Sodium 1 mg PO MOWEFR 07/17/20
--- NOTE | 2020-07-19 17:06 | PN_ITS ---
Patient Problems: Active and Suspected Problems (Last Reviewed 07/17/20 @ 22:[address] Mayco Williamson MD) CHF (congestive heart failure) (Acute) Atrial fibrillation and flutter (Acute) Reason for Visit: Follow-up with acute CHF Subjective: Patient was seen and examined. He had dyspnea on exertion. Has been diuresing on Lasix. Discussed with cardiology, cardiac catheter was discussed with patient who preferred to be discharged to a tertiary center. [facility] was in his network. Objective: Physical exam: General: Alert, Oriented x3, Cooperative HEENT: Atraumatic, PERRLA, EOMI, Normocephalic Neck: Supple, No JVD, Negative Carotid Bruits Lungs: Clear to auscultation, Normal air movement, No rhonchi, No wheeze, No rales Cardiovascular: Normal S1, Normal S2, No murmurs, Irregular Rate Abdomen: Bowel Sounds Present, Soft, Non Tender Extremities: No edema, Capillary Refill Less than 3 Seconds Skin: No rashes, No breakdown Musculoskeletal: No Tenderness to Palpation of Joints or Extremities Neurological: Cranial nerves II-XII grossly intact Psych/Mental Status: Normal Affect, Appropriate Vitals/I&O's: Vital Signs Temp Pulse Resp BP Pulse Ox 98.6 F 84 16 106/48 L 96 07/19/20 15:10 07/19/20 15:10 07/19/20 15:10 07/19/20 15:10 07/19/20 15:18 Oxygen Delivery Method Room Air Weight: 92 kg Body Mass Index (BMI) 27.3 Finger Stick Blood Glucose 106 Intake and Output for Last 24 Hours 07/17/20 07/18/20 07/19/20 23:59 23:59 23:59 Intake Total 120 / 120 810 / 810 240 / 240 Output Total 1525 / 1525 350 / 350 Balance 120 / 120 -715 / -715 -110 / -110 Microbiology Past 72 Hours 07/17/20 17:37 Mucosa - Nose SARS-CoV-2 Antigen (Rapid) - Final Laboratory Results 07/19/20 05:30: PT 34.2 H, INR 3.4 07/19/20 05:30: WBC 6.4, RBC 3.85 L, Hgb 12.0 L, Hct 37.4 L, MCV 97.1 H, MCH 31.2, MCHC 32.1, RDW Std Deviation 42.3, RDW Coeff of Alfonso 12.0, Plt Count 166, MPV 11.6, Immature Gran % (Auto) 0.300, Neut % (Auto) 61.3, Lymph % (Auto) 20.0, Kern % (Auto) 14.5 H, Eos % (Auto) 3.6, Baso % (Auto) 0.3, Absolute Neuts (auto) 3.9, Absolute Lymphs (auto) 1.27, Nucleated RBC % 0 07/19/20 05:30: Sodium 139, Potassium 3.8, Chloride 107, Carbon Dioxide 27.0, Anion Gap 5, BUN 32 H, Creatinine 1.36 H, Estim Creat Clear Calc 45.69, Est GFR (MDRD) Af Amer 64, Est GFR (MDRD) Non-Af 53 L, BUN/Creatinine Ratio 23.5 H, Glucose 101, Calcium 8.2 L, Total Bilirubin 0.80, AST 25, ALT 33, Alkaline Phosphatase 62, Total Protein 6.6, Albumin 3.3, Globulin 3.3, Albumin/Globulin Ratio 1.0 Current Medications Acetaminophen (Acetaminophen 325 Mg Tablet) 650 mg PO Q6H PRN PRN PRN Reason: Pain Score 1-10/Temp > 100.7 F Atorvastatin Calcium (Atorvastatin Calcium 10 Mg Tablet) 10 mg PO QHS [facility] Last Admin: 07/18/20 21:25 Dose: 10 mg Documented by: Clopidogrel Bisulfate (Clopidogrel Bisulfate 75 Mg Tablet) 75 mg PO DAILY [facility] Last Admin: 07/19/20 09:14 Dose: 75 mg Documented by: Furosemide (Furosemide 20 Mg Tablet) 20 mg PO DAILY [facility] Last Admin: 07/19/20 09:13 Dose: 20 mg Documented by: Guaifenesin (Guaifenesin 1,200 Mg Tablet) 1,200 mg PO BID [facility] Last Admin: 07/19/20 09:14 Dose: 1,200 mg Documented by: Melatonin (Melatonin 3 Mg Tablet) 3 mg PO QHS PRN PRN PRN Reason: INSOMNIA Metoprolol Tartrate (Metoprolol Tartrate 25 Mg Tablet) 25 mg PO BID [facility] Last Admin: 07/19/20 09:14 Dose: 25 mg Documented by: Ondansetron HCl (Ondansetron 4 Mg/2 Ml Vial) 4 mg IV Q8H PRN PRN PRN Reason: NAUSEA/VOMITING Senna/Docusate Sodium (Senna/Docusate Sodium 1 Tablet) 2 tablet PO BID PRN PRN PRN Reason: Constipation Sodium Chloride (0.9% Saline Lock 10 Ml Syringe) 10 - 40 ml IV UD PRN PRN Reason: SALINE FLUSH Last Admin: 07/18/20 12:54 Dose: 10 ml Documented by: Spironolactone (Spironolactone 25 Mg Tablet) 25 mg PO Q48H [facility] Last Admin: 07/18/20 08:44 Dose: 25 mg Documented by: STROKE Vital Signs/Narrative: Vital Signs Temp Pulse Resp BP Pulse Ox 07/19/20 15:18 96 07/19/20 15:10 98.6 F 84 16 106/48 L 96 07/19/20 15:00 76 Medical Necessity - Tobacco Use Smoking Status: Never smoker Tobacco Use: Cigarettes Assessment/Plan All Active Problems (Last Reviewed 07/17/20 @ 22:[address] Mayco Williamson MD) CHF (congestive heart failure) (Acute) Atrial fibrillation and flutter (Acute) Inguinal hernia (Resolved) 1. Dyspnea on exertion, concerning for angina Patient is being transferred to [facility] 2. Acute on chronic heart failure with preserved EF, improved 2D echo shows EF of 55% Patient blood pressure was relatively low, morning dose of Lasix reduced to 20 mg IV x1 Continue on Lasix 20 mg IV twice daily 3. Chronic atrial fibrillation, INR is at goal, 3.4 Hold hold Coumadin tonight, repeat INR in a.m. 4. History of CVA/hyperlipidemia, continue on Plavix, metoprolol, simvastatin, spironolactone 5. DVT prophylaxis?patient is on Coumadin OBSV E&M: 93604 Subsequent observation care L3
[2020-07-19] MEDS: Atorvastatin Calcium 10 MG Tablet PO (21:13)
[2020-07-20] VITALS (17 sets, daily range): BP systolic 108–119; BP diastolic 42–60; PULSE 48–81; RESP 15–18; TEMP 36.6–36.8; O2SAT 95–97
[2020-07-20 06:34] LABS: ALB/GLOB Ratio 1.1 RATIO (0.9-2.4); AST(SGOT) 20 U/L (15-37); Alanine Aminotransfer ALT/SGPT 30 U/L (16-61); Albumin, Serum 3.3 g/dL (3.2-5.0); Alkaline Phosphatase 57 U/L (45-117); Anion Gap 5 (5-15); BUN 32 mg/dL (7-18); BUN/Creat Ratio 27.8 RATIO (10-20); Calcium,Total 8.3 mg/dL (8.5-10.1); Chloride 109 mmol/L (98-107); Creatinine, Serum 1.15 mg/dL (0.70-1.30); EST Glomerular Filtration Rate 64 mL/min (>60); Est Glom Filt Rate - Afr Amer 78 mL/min (>60); Estimated Creatinine Clearance 54.04 ml/min; Globulin 3.1 g/dL (2.2-4.2); Glucose 98 mg/dL (74-106); Potassium 4.1 mmol/L (3.5-5.1); Protein, Total 6.4 g/dL (6.4-8.2); Sodium Level 139 mmol/L (136-145)
[2020-07-20] MEDS: Metoprolol Tartrate 25 MG Tablet PO (08:30)
[2020-07-20] MEDS: Furosemide 20 MG Tablet PO (08:30)
[2020-07-20] MEDS: Clopidogrel Bisulfate 75 MG Tablet PO (08:30)
[2020-07-20] MEDS: 0.9% Saline Lock 10 ML Syringe IV (08:30)
[2020-07-20] MEDS: guaiFENesin 1,200 MG Tablet 1200 MG PO ×2 (08:30→21:13)
[2020-07-20] MEDS: Spironolactone 25 MG Tablet PO (08:30)
[2020-07-20 08:40] LABS: International Normalized Ratio 2.8; Prothrombin Time (Protime)PT. 28.7 SECONDS (11.7-14.9)
--- NOTE | 2020-07-20 18:15 | PN.CARD_ITS ---
Subjectve: The patient appears to be resting comfortably at this time. Objective: Vital Signs Temp Pulse Resp BP Pulse Ox 98.1 F 70 18 108/42 L 97 07/20/20 16:30 07/20/20 16:30 07/20/20 16:30 07/20/20 16:30 07/20/20 16:30 Oxygen Delivery Method Room Air Weight: 202 lb 9.677 oz Body Mass Index (BMI) 27.3 Finger Stick Blood Glucose 106 Intake and Output for Last 24 Hours 07/18/20 07/19/20 07/20/20 23:59 23:59 23:59 Intake Total 810 / 810 700 / 700 360 / 360 Output Total 1525 / 1525 1000 / 1000 850 / 850 Balance -715 / -715 -300 / -300 -490 / -490 General: Awake, Alert, Oriented x 3, Cooperative, No Acute Distress HEENT: Atraumatic, Normocephalic, PERRL, EOMI, Sclera Non Icteric Neck: Supple, Good ROM, No JVD Lungs: Clear to auscultation Cardiovascular: Irregular Rhythm, Normal S1, Normal S2 Abdomen: Bowel Sounds Present, Soft Extremities: No edema Neurological: No Focal Motor or Sensory Deficit Psych/Mental Status: Appropriate 07/20/20 05:45: Sodium 139, Potassium 4.1, Chloride 109 H, Carbon Dioxide 25.0, Anion Gap 5, BUN 32 H, Creatinine 1.15, Est GFR (MDRD) Af Amer 78, Est GFR (MDRD) Non-Af 64, BUN/Creatinine Ratio 27.8 H, Glucose 98, Calcium 8.3 L, Total Bilirubin 0.70 07/20/20 07:52: PT 28.7 H, INR 2.8 Rhythm: Atrial fibrillation Medical Necessity - Tobacco Use Smoking Status: Never smoker Tobacco Use: Cigarettes Assessment/Plan 1. 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 His diuretics have been altered to oral diuretics. His BUN and creatinine level appear to be improving somewhat. 2. Status post aortic valve replacement-bioprosthetic The patient underwent aortic valve replacement in 2007 at [facility] with a 25 mm Meena-Warner pericardial bovine valve. He has been followed since then noninvasively. Based upon his echocardiographic studies it appears his aortic valve prosthesis is stable at this time. He will need to continue AHA antibiotic prophylaxis. He will need to be followed for any significant changes based upon his history, examination, and future echocardiographic studies. 3. CAD He has been described in the past as having single-vessel mild CAD as described on his cardiac catheterization report. Again some of his symptoms raise concern of an exertional angina pectoris equivalent. Based upon his ongoing symptoms with minimal exertional activity such as walking down the hallway it was felt reasonable the patient should be further evaluated for progression of CAD with a diagnostic cardiac catheterization. 4. Atrial fibrillation/flutter He has a history of atrial fibrillation/flutter. Anticoagulant therapy is on hold in anticipation of upcoming diagnostic cardiac catheterization. His INR has decreased to 2.8. 5. Thoracic aortic aneurysm He has had dilatation of his ascending thoracic aorta. He has been followed by noninvasive studies. 6. Abdominal aortic aneurysm He has been reported as having abdominal aortic aneurysm as well followed by noninvasive studies by his other physicians. 7. Hyperlipidemia He will need to continue risk factor evaluation and care. 8. Hypertension His blood pressure will need to be followed with adjustment of medications as tolerated. Comment: The patient, despite his request, based upon his underlying insurance issues, was unable to be accepted at [facility]. He has been accepted at [facility]. He is pending transfer there for further evaluation when a bed becomes available. This note was generated using a voice recognition system and there may be incorrect words, spelling or punctuation that were not noted when reviewing the office note prior to saving.
--- NOTE | 2020-07-20 18:23 | PN_ITS ---
Patient Problems: Active and Suspected Problems (Last Reviewed 07/17/20 @ 22:[address] Mayco Williamson MD) CHF (congestive heart failure) (Acute) Atrial fibrillation and flutter (Acute) Reason for Visit: Follow-up with acute CHF Subjective: Patient was seen and examined. He feels about the same. Waiting on transfer to [facility]. Objective: Physical exam: General: Alert, Oriented x3, Cooperative HEENT: Atraumatic, PERRLA, EOMI, Normocephalic Neck: Supple, No JVD, Negative Carotid Bruits Lungs: Clear to auscultation, Normal air movement, No rhonchi, No wheeze, No rales Cardiovascular: Normal S1, Normal S2, No murmurs, Irregular Rate Abdomen: Bowel Sounds Present, Soft, Non Tender Extremities: No edema, Capillary Refill Less than 3 Seconds Skin: No rashes, No breakdown Musculoskeletal: No Tenderness to Palpation of Joints or Extremities Neurological: Cranial nerves II-XII grossly intact Psych/Mental Status: Normal Affect, Appropriate Vitals/I&O's: Vital Signs Temp Pulse Resp BP Pulse Ox 98.1 F 70 18 108/42 L 97 07/20/20 16:30 07/20/20 16:30 07/20/20 16:30 07/20/20 16:30 07/20/20 16:30 Oxygen Delivery Method Room Air Weight: 91.9 kg Body Mass Index (BMI) 27.3 Finger Stick Blood Glucose 106 Intake and Output for Last 24 Hours 07/18/20 07/19/20 07/20/20 23:59 23:59 23:59 Intake Total 810 / 810 700 / 700 360 / 360 Output Total 1525 / 1525 1000 / 1000 850 / 850 Balance -715 / -715 -300 / -300 -490 / -490 Microbiology Past 72 Hours 07/17/20 17:37 Mucosa - Nose SARS-CoV-2 Antigen (Rapid) - Final Laboratory Results 07/20/20 05:45: Sodium 139, Potassium 4.1, Chloride 109 H, Carbon Dioxide 25.0, Anion Gap 5, BUN 32 H, Creatinine 1.15, Estim Creat Clear Calc 54.04, Est GFR (MDRD) Af Amer 78, Est GFR (MDRD) Non-Af 64, BUN/Creatinine Ratio 27.8 H, Glucose 98, Calcium 8.3 L, Total Bilirubin 0.70, AST 20, ALT 30, Alkaline Phosphatase 57, Total Protein 6.4, Albumin 3.3, Globulin 3.1, Albumin/Globulin Ratio 1.1 07/20/20 07:52: PT 28.7 H, INR 2.8 Current Medications Acetaminophen (Acetaminophen 325 Mg Tablet) 650 mg PO Q6H PRN PRN PRN Reason: Pain Score 1-10/Temp > 100.7 F Atorvastatin Calcium (Atorvastatin Calcium 10 Mg Tablet) 10 mg PO QHS [facility] Last Admin: 07/19/20 21:13 Dose: 10 mg Documented by: Clopidogrel Bisulfate (Clopidogrel Bisulfate 75 Mg Tablet) 75 mg PO DAILY [facility] Last Admin: 07/20/20 08:30 Dose: 75 mg Documented by: Furosemide (Furosemide 20 Mg Tablet) 20 mg PO DAILY [facility] Last Admin: 07/20/20 08:30 Dose: 20 mg Documented by: Guaifenesin (Guaifenesin 1,200 Mg Tablet) 1,200 mg PO BID [facility] Last Admin: 07/20/20 08:30 Dose: 1,200 mg Documented by: Melatonin (Melatonin 3 Mg Tablet) 3 mg PO QHS PRN PRN PRN Reason: INSOMNIA Metoprolol Tartrate (Metoprolol Tartrate 25 Mg Tablet) 25 mg PO BID [facility] Last Admin: 07/20/20 08:30 Dose: 25 mg Documented by: Ondansetron HCl (Ondansetron 4 Mg/2 Ml Vial) 4 mg IV Q8H PRN PRN PRN Reason: NAUSEA/VOMITING Senna/Docusate Sodium (Senna/Docusate Sodium 1 Tablet) 2 tablet PO BID PRN PRN PRN Reason: Constipation Sodium Chloride (0.9% Saline Lock 10 Ml Syringe) 10 - 40 ml IV UD PRN PRN Reason: SALINE FLUSH Last Admin: 07/20/20 08:30 Dose: 10 ml Documented by: Spironolactone (Spironolactone 25 Mg Tablet) 25 mg PO Q48H [facility] Last Admin: 07/20/20 08:30 Dose: 25 mg Documented by: STROKE Vital Signs/Narrative: Vital Signs Temp Pulse Resp BP Pulse Ox 07/20/20 16:30 98.1 F 70 18 108/42 L 97 07/20/20 15:00 69 07/20/20 14:29 96 07/20/20 14:25 98.2 F 79 16 113/44 L 96 Medical Necessity - Tobacco Use Smoking Status: Never smoker Tobacco Use: Cigarettes Assessment/Plan All Active Problems (Last Reviewed 07/17/20 @ 22:[address] Mayco Williamson MD) CHF (congestive heart failure) (Acute) Atrial fibrillation and flutter (Acute) Inguinal hernia (Resolved) 1. Dyspnea on exertion, concerning for angina Waiting transfer to [facility] 2. Acute on chronic heart failure with preserved EF, improved 2D echo shows EF of 55% Patient blood pressure was relatively low, morning dose of Lasix reduced to 20 mg IV x1 Continue on Lasix 20 mg po daily 3. Chronic atrial fibrillation, INR is at goal, 2.8 Continue Coumadin tonight, repeat INR in a.m. 4. History of CVA/hyperlipidemia, continue on Plavix, metoprolol, simvastatin, spironolactone 5. DVT prophylaxis?patient is on Coumadin Inpatient E&M: 53272 Subs Hosp L2
[2020-07-20] MEDS: Jantoven 2 MG Tablet PO (18:46)
[2020-07-20] MEDS: Atorvastatin Calcium 10 MG Tablet PO (21:13)
[2020-07-21] VITALS (10 sets, daily range): BP systolic 113–120; BP diastolic 42–57; PULSE 47–79; RESP 15–18; TEMP 36.6–37; O2SAT 94–95
--- NOTE | 2020-07-21 03:38 | NURSING ---
2200: scheduled lopressor held at this time d/t persistent bradycardia, HR 44-55 x 3 attempts
[2020-07-21 06:34] LABS: International Normalized Ratio 2.6; Prothrombin Time (Protime)PT. 27.1 SECONDS (11.7-14.9)
[2020-07-21 06:36] LABS: Anion Gap 6 (5-15); BUN 29 mg/dL (7-18); BUN/Creat Ratio 27.4 RATIO (10-20); Calcium,Total 8.4 mg/dL (8.5-10.1); Chloride 111 mmol/L (98-107); Creatinine, Serum 1.06 mg/dL (0.70-1.30); EST Glomerular Filtration Rate 71 mL/min (>60); Est Glom Filt Rate - Afr Amer 85 mL/min (>60); Estimated Creatinine Clearance 58.63 ml/min; Glucose 98 mg/dL (74-106); Potassium 3.9 mmol/L (3.5-5.1); Sodium Level 140 mmol/L (136-145)
--- NOTE | 2020-07-21 09:37 | PN.CARD_ITS ---
Subjectve: Patient states he was up and walking yesterday evening. He states by the time he finished walking around the PCU floor he was short of breath and dyspneic and had to stop and rest. Objective: Vital Signs Temp Pulse Resp BP Pulse Ox 98.2 F 63 15 120/52 L 95 07/21/20 04:00 07/21/20 07:02 07/21/20 04:00 07/21/20 04:00 07/21/20 07:14 Oxygen Delivery Method Room Air Weight: 202 lb 9.677 oz Body Mass Index (BMI) 27.3 Finger Stick Blood Glucose 106 Intake and Output for Last 24 Hours 07/19/20 07/20/20 07/21/20 23:59 23:59 23:59 Intake Total 700 / 700 360 / 360 Output Total 1000 / 1000 850 / 850 Balance -300 / -300 -490 / -490 General: Awake, Alert, Oriented x 3, Cooperative HEENT: Atraumatic, Normocephalic, PERRL, EOMI, Sclera Non Icteric Neck: Supple, Good ROM, No JVD Lungs: Clear to auscultation Cardiovascular: Irregular Rhythm, Normal S1, Normal S2 Abdomen: Bowel Sounds Present, Soft Extremities: No edema Neurological: No Focal Motor or Sensory Deficit Psych/Mental Status: Appropriate 07/21/20 05:39: PT 27.1 H, INR 2.6 07/21/20 05:39: Sodium 140, Potassium 3.9, Chloride 111 H, Carbon Dioxide 23.0, Anion Gap 6, BUN 29 H, Creatinine 1.06, Est GFR (MDRD) Af Amer 85, Est GFR (MDRD) Non-Af 71, BUN/Creatinine Ratio 27.4 H, Glucose 98, Calcium 8.4 L Rhythm: Atrial fibrillation Medical Necessity - Tobacco Use Smoking Status: Never smoker Tobacco Use: Cigarettes Assessment/Plan 1. 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 His diuretics have been altered to oral diuretics. His BUN and creatinine level appear to be improving somewhat. 2. Status post aortic valve replacement-bioprosthetic The patient underwent aortic valve replacement in 2007 at [facility] with a 25 mm Meena-Warner pericardial bovine valve. He has been followed since then noninvasively. Based upon his echocardiographic studies it appears his aortic valve prosthesis is stable at this time. He will need to continue AHA antibiotic prophylaxis. He will need to be followed for any significant changes based upon his history, examination, and future echocardiographic studies. 3. CAD He has been described in the past as having single-vessel mild CAD as described on his cardiac catheterization report. Again some of his symptoms raise concern of an exertional angina pectoris equivalent. Based upon his ongoing symptoms with minimal exertional activity such as walking down the hallway it was felt reasonable the patient should be further evaluated for progression of CAD with a diagnostic cardiac catheterization. 4. Atrial fibrillation/flutter He has a history of atrial fibrillation/flutter. Anticoagulant therapy is on hold in anticipation of upcoming diagnostic cardiac catheterization. His INR has decreased to 2.6. 5. Thoracic aortic aneurysm He has had dilatation of his ascending thoracic aorta. He has been followed by noninvasive studies. 6. Abdominal aortic aneurysm He has been reported as having abdominal aortic aneurysm as well followed by noninvasive studies by his other physicians. 7. Hyperlipidemia He will need to continue risk factor evaluation and care. 8. Hypertension His blood pressure will need to be followed with adjustment of medications as tolerated. Comment: The patient is being transferred to [facility] for further cardiovascular evaluation when a bed is available. This note was generated using a voice recognition system and there may be incor rect words, spelling or punctuation that were not noted when reviewing the office note prior to saving.
[2020-07-21] MEDS: Metoprolol Tartrate 25 MG Tablet PO (10:17)
[2020-07-21] MEDS: Furosemide 20 MG Tablet PO (10:17)
[2020-07-21] MEDS: guaiFENesin 1,200 MG Tablet 1200 MG PO (10:18)
[2020-07-21] MEDS: Clopidogrel Bisulfate 75 MG Tablet PO (10:18)
[2020-07-21] MEDS: 0.9% Saline Lock 10 ML Syringe IV (13:08)
--- NOTE | 2020-07-21 15:47 | PN_ITS ---
Patient Problems: Active and Suspected Problems (Last Reviewed 07/17/20 @ 22:[address] Mayco Williamson MD) CHF (congestive heart failure) (Acute) Atrial fibrillation and flutter (Acute) Subjective: Still with dyspnea on exertion. Otherwise no issues overnight, denies any chest pain. Vitals/I&O's: Vital Signs Temp Pulse Resp BP Pulse Ox 98 F 79 18 115/57 L 95 07/21/20 10:13 07/21/20 10:07/21/20 10:13 07/21/20 10:07/21/20 10:13 Oxygen Delivery Method Room Air Weight: 202 lb 9.677 oz Body Mass Index (BMI) 27.3 Finger Stick Blood Glucose 106 Intake and Output for Last 24 Hours 07/19/20 07/20/20 07/21/20 23:59 23:59 23:59 Intake Total 700 / 700 360 / 360 360 / 360 Output Total 1000 / 1000 850 / 850 700 / 700 Balance -300 / -300 -490 / -490 -340 / -340 General: Alert, Oriented x3, Cooperative, No apparent distress HEENT: Atraumatic, PERRLA, EOMI, Normocephalic Oral: Moist Mucosa Neck: Supple, No JVD Lungs: Clear to auscultation, Normal air movement, No rhonchi, No wheeze, No rales Cardiovascular: Regular rate, Regular Rhythm, Normal S1, Normal S2, No murmurs Abdomen: Soft, Non Tender, Non-Distended, No Hepato-splenomegaly Extremities: No edema, Capillary Refill Less than 3 Seconds Skin: No rashes, No breakdown Neurological: Neuro grossly intact, Sensory exam intact to light touch and pain Psych/Mental Status: Normal Affect, Appropriate Laboratory Results 07/21/20 05:39: PT 27.1 H, INR 2.6 07/21/20 05:39: Sodium 140, Potassium 3.9, Chloride 111 H, Carbon Dioxide 23.0, Anion Gap 6, BUN 29 H, Creatinine 1.06, Estim Creat Clear Calc 58.63, Est GFR (MDRD) Af Amer 85, Est GFR (MDRD) Non-Af 71, BUN/Creatinine Ratio 27.4 H, G lucose 98, Calcium 8.4 L Current Medications Acetaminophen (Acetaminophen 325 Mg Tablet) 650 mg PO Q6H PRN PRN PRN Reason: Pain Score 1-10/Temp > 100.7 F Atorvastatin Calcium (Atorvastatin Calcium 10 Mg Tablet) 10 mg PO QHS [facility] Last Admin: 07/20/20 21:13 Dose: 10 mg Documented by: Clopidogrel Bisulfate (Clopidogrel Bisulfate 75 Mg Tablet) 75 mg PO DAILY [facility] Last Admin: 07/21/20 10:18 Dose: 75 mg Documented by: Furosemide (Furosemide 20 Mg Tablet) 20 mg PO DAILY [facility] Last Admin: 07/21/20 10:17 Dose: 20 mg Documented by: Guaifenesin (Guaifenesin 1,200 Mg Tablet) 1,200 mg PO BID [facility] Last Admin: 07/21/20 10:18 Dose: 1,200 mg Documented by: Melatonin (Melatonin 3 Mg Tablet) 3 mg PO QHS PRN PRN PRN Reason: INSOMNIA Metoprolol Tartrate (Metoprolol Tartrate 25 Mg Tablet) 25 mg PO BID [facility] Last Admin: 07/21/20 10:17 Dose: 25 mg Documented by: Ondansetron HCl (Ondansetron 4 Mg/2 Ml Vial) 4 mg IV Q8H PRN PRN PRN Reason: NAUSEA/VOMITING Senna/Docusate Sodium (Senna/Docusate Sodium 1 Tablet) 2 tablet PO BID PRN PRN PRN Reason: Constipation Sodium Chloride (0.9% Saline Lock 10 Ml Syringe) 10 - 40 ml IV UD PRN PRN Reason: SALINE FLUSH Last Admin: 07/21/20 13:08 Dose: 10 ml Documented by: Spironolactone (Spironolactone 25 Mg Tablet) 25 mg PO Q48H [facility] Last Admin: 07/20/20 08:30 Dose: 25 mg Documented by: Warfarin Sodium (Jantoven 2 Mg Tablet) 2 mg PO TuThSa@1700 [facility] Warfarin Sodium (Warfarin 1 Mg Tablet) 1 mg PO MoWeFr@1700 [facility] Medical Necessity - Tobacco Use Smoking Status: Never smoker Tobacco Use: Cigarettes Assessment/Plan All Active Problems (Last Reviewed 07/17/20 @ 22:[address] Mayco Williamson MD) CHF (congestive heart failure) (Acute) Atrial fibrillation and flutter (Acute) Inguinal hernia (Resolved) 1. Dyspnea on exertion with acute on chronic diastolic CHF chronic A. fib/HTN/HLD/CAD -Cardiology's been consulted, appreciate assistance -Plan will be transferred to for cardiac cath, however if they still not excepted him by Friday then he would like to proceed with a cardiac cath here on Friday -Continue with Lasix, metoprolol, Aldactone -Continue with Lipitor, Plavix -Discontinue Coumadin in the anticipation of a cardiac cath DVT: Therapeutic INR OBSV E&M: 29725 Subsequent observation care L2
--- NOTE | 2020-07-21 17:37 | DS.PCM_ITS ---
Discharge Date and Diagnosis - Problem List Patient Problems: Active and Suspected Problems (Last Reviewed 07/17/20 @ 22:[address] Mayco Williamson MD) CHF (congestive heart failure) (Acute) Atrial fibrillation and flutter (Acute) Date of Admission: 07/17/20 Date of Discharge: 07/21/20 - Primary Discharge Diagnosis Acute Problems: Active Problems (Last Reviewed 07/17/20 @ 22:[address] Mayco Williamson MD) CHF (congestive heart failure) (Acute) Atrial fibrillation and flutter (Acute) - Secondary Discharge Diagnosis Chronic Problems: Chronic Problems (Last Reviewed 07/17/20 @ 22:[address] Mayco Williamson MD) RBBB (right bundle branch block) (Chronic) Abdominal aortic aneurysm without rupture (Chronic) Thoracic aortic aneurysm without rupture (Chronic) Chronic diastolic heart failure (Chronic) Atherosclerotic heart disease of [place] coronary artery without angina pectoris (Chronic) Mild Atrial flutter, chronic (Chronic) Essential hypertension (Chronic) History of aortic valve replacement with bioprosthetic valve (Chronic ~08/10/07) 25mm Meena Warner Bovine pericardial aortic valve @ [facility] 08/09/17 Hyperlipidemia (Chronic) Hospital Course and Treatment Imaging Results: Clinical Impression(s) from Imaging Studies Chest X-Ray 07/17/20 17:54 IMPRESSION: No active disease. Electronically Signed: Wyatt Keyes MD at 18:32 EST Tel , Service support , echo: Interpretation Summary The study was technically difficult. Contrast injection was performed. Left ventricular systolic function is normal. The estimated ejection fraction is 55 %. Post operative septal motion. The left atrium is moderately enlarged. The right atrium is moderately enlarged. Anterior leaflet diffuse mitral valve thickening. Mild focal mitral valve calcification of the anterior leaflet. Mild (1+) mitral valve insufficiency. Mild tricuspid valve insufficiency. Stable appearing bioprosthetic aortic valve apparatus. Mild (1+) eccentric aortic valve insufficiency. Mild (1+) pulmonic valve insufficiency. Mildly dilated aortic root. Right ventricular systolic pressure estimated to be 38 mmHg. Unable to assess diastolic dysfunction. Operations: None Procedures: None Summary of Care Provided: Per HPI: The patient is a 84 year old M with a significant history of bovine aortic valve replacement; atrial fibrillation; and congestive heart failure who presents emergency department with 2 to 3 weeks history of progressively worsening shortness of breath. At rest he denies any shortness of breath but with mild exertion he has significant shortness of breath. In between walking a flight of steps he has to stop and rest. At the emergency department while patient shoes was being taken off reportedly he had shortness of breath. Associated with his symptoms is lethargy for which he has been sleeping so much. He denies any change in weight or swelling. Emergency department reportedly discussed the case with cardiology on-call who said the patient should be observed overnight; cardiac enzymes trended; diuresed and for patient's cardiology to see patient in a.m. Hospital Course: 1. Dyspnea on exertion with acute on chronic diastolic CHF and chronic A. fib/HTN/HLD/CAD/status post aortic valve repair in [id number]-old male presented to the hospital with increasing dyspnea on exertion. Cardiology was consulted and felt that he would benefit from a cardiac cath however he felt uncomfortable having that done here and preferred to be treated at a tertiary care center. During his hospitalization he has remained chronically short of breath as well as dyspneic on exertion, however vital signs remained stable and he was maintaining his oxygen sats on room air. He did have a cardiac cath in the past which showed mild single-vessel CAD did not require stenting at that time. Has reported abdominal aortic and thoracic aneurysms that are being monitored noninvasively. He was continued on Lasix 20 mg p.o. daily as well as Plavix, Lipitor, Aldactone, metoprolol. His Coumadin was discontinued however his INR is still 2.6. It was 3.4 at its peak during the admission. He was not given any reversal agents as he elected not to have a cardiac cath done at this institution, however his Coumadin was held in anticipation of likely intervention. I discussed with him the plan for discharge today to tertiary care center he expressed understanding of the risk and benefits of discharge and would like to be discharged today. Patient Problems: Active and Suspected Problems (Last Reviewed 07/17/20 @ 22:[address] Mayco Williamson MD) CHF (congestive heart failure) (Acute) Atrial fibrillation and flutter (Acute) - Physical Exam Vitals/I&O's: Vital Signs Temp Pulse Resp BP Pulse Ox 98.5 F 57 L 18 113/42 L 95 07/21/20 14:00 07/21/20 14:00 07/21/20 14:00 07/21/20 14:00 07/21/20 14:00 Oxygen Delivery Method Room Air Weight: 202 lb 9.677 oz Body Mass Index (BMI) 27.3 Finger Stick Blood Glucose 106 Intake and Output for Last 24 Hours 07/19/20 07/20/20 07/21/20 23:59 23:59 23:59 Intake Total 700 / 700 360 / 360 360 / 360 Output Total 1000 / 1000 850 / 850 1100 / 1100 Balance -300 / -300 -490 / -490 -740 / -740 Laboratory Results 07/21/20 05:39: PT 27.1 H, INR 2.6 07/21/20 05:39: Sodium 140, Potassium 3.9, Chloride 111 H, Carbon Dioxide 23.0, Anion Gap 6, BUN 29 H, Creatinine 1.06, Estim Creat Clear Calc 58.63, Est GFR (MDRD) Af Amer 85, Est GFR (MDRD) Non-Af 71, BUN/Creatinine Ratio 27.4 H, Glucose 98, Calcium 8.4 L Current Medications Acetaminophen (Acetaminophen 325 Mg Tablet) 650 mg PO Q6H PRN PRN PRN Reason: Pain Score 1-10/Temp > 100.7 F Atorvastatin Calcium (Atorvastatin Calcium 10 Mg Tablet) 10 mg PO QHS [facility] Last Admin: 07/20/20 21:13 Dose: 10 mg Documented by: Clopidogrel Bisulfate (Clopidogrel Bisulfate 75 Mg Tablet) 75 mg PO DAILY [facility] Last Admin: 07/21/20 10:18 Dose: 75 mg Documented by: Furosemide (Furosemide 20 Mg Tablet) 20 mg PO DAILY [facility] Last Admin: 07/21/20 10:17 Dose: 20 mg Documented by: Guaifenesin (Guaifenesin 1,200 Mg Tablet) 1,200 mg PO BID [facility] Last Admin: 07/21/20 10:18 Dose: 1,200 mg Documented by: Melatonin (Melatonin 3 Mg Tablet) 3 mg PO QHS PRN PRN PRN Reason: INSOMNIA Metoprolol Tartrate (Metoprolol Tartrate 25 Mg Tablet) 25 mg PO BID [facility] Last Admin: 07/21/20 10:17 Dose: 25 mg Documented by: Ondansetron HCl (Ondansetron 4 Mg/2 Ml Vial) 4 mg IV Q8H PRN PRN PRN Reason: NAUSEA/VOMITING Senna/Docusate Sodium (Senna/Docusate Sodium 1 Tablet) 2 tablet PO BID PRN PRN PRN Reason: Constipation Sodium Chloride (0.9% Saline Lock 10 Ml Syringe) 10 - 40 ml IV UD PRN PRN Reason: SALINE FLUSH Last Admin: 07/21/20 13:08 Dose: 10 ml Documented by: Spironolactone (Spironolactone 25 Mg Tablet) 25 mg PO Q48H [facility] Last Admin: 07/20/20 08:30 Dose: 25 mg Documented by: Home Medications: Medications to take at Discharge Multivitamins,Ther W-Minerals [Multivitamin With Minerals (BKC)] 0.5 tab PO BID 02/15/14 Clopidogrel Bisulfate [Plavix] 75 mg PO DAILY 05/06/17 Warfarin [Coumadin] 2 mg PO SUTUTHSA 05/06/17 furosemide 20 mg tablet 20 mg PO QODAY tab 06/01/19 spironolactone 25 mg tablet 25 mg PO MOWEFR tab 06/01/19 metoprolol tartrate 25 mg tablet 25 mg PO BID #180 tab 10/27/19 Simvastatin [Zocor] 20 mg PO QHS 07/17/20 Warfarin Sodium 1 mg PO MOWEFR 07/17/20 Primary Care Physician: Yehuda Richards III, MD [Primary Care Provider] - Disposition: Acute care Hospital Minutes spent on discharge:: 35 Patient Condition:: Stable Medical Necessity - Tobacco Use Smoking Status: Never smoker Tobacco Use: Cigarettes Meaningful Use Info Meaningful Use Diagnoses (Choose all that apply): None applicable OBSV E&M: 68249 Observation care discharge
--- NOTE | 2020-07-21 18:38 | NURSING ---
Called SBAR report to Nguyen Griggs RN at [facility]. All questions answered. Prepared patient for discharge. at bedside. Vital signs stable. Patient alert and oriented x3, pleasant, in good spirits. Provided emotional support to and patient.
== END 2020-07-21 19:47 | disposition short-term general hospital (02) ==
LOC: ED 19:08 → PCU 19:33
PROVIDERS: Internal Medicine; Internal Medicine Cardiovascular Disease; Admitting Provider Hospitalist; Emergency Provider Emergency Medicine; PCP Family Medicine; Visit Provider Family Medicine
DX: I13.0 Hypertensive heart and chronic kidney disease with heart failure and stage 1 through stage 4 chronic kidney disease, or unspecified chronic kidney disease (principal); I48.20 Chronic atrial fibrillation, unspecified; I48.92 Unspecified atrial flutter; N18.30 Chronic kidney disease, stage 3 unspecified; I25.10 Atherosclerotic heart disease of native coronary artery without angina pectoris; E78.5 Hyperlipidemia, unspecified; I50.33 Acute on chronic diastolic (congestive) heart failure; F17.210 Nicotine dependence, cigarettes, uncomplicated; I45.10 Unspecified right bundle-branch block; I08.3 Combined rheumatic disorders of mitral, aortic and tricuspid valves; Z79.899 Other long term (current) drug therapy; Z95.3 Presence of xenogenic heart valve; Z79.02 Long term (current) use of antithrombotics/antiplatelets; Z79.01 Long term (current) use of anticoagulants; Z86.73 Personal history of transient ischemic attack (TIA), and cerebral infarction without residual deficits
CPT/HCPCS: 36415; 71045; 80048; 80053; 83880; 84484; 85025; 85610; 87426; 93005; 93306; 94762; 96374; 96376; 97161; 97165; 99218; 99285; Q9957; A4216; C8929; G0378; J1940

== ENCOUNTER 2020-08-13 18:42 | Emergency (ER) | payer MEDICARE, SELFPAY ==
[2020-08-11 11:01] VITALS: BMI 26.9
[2020-08-13 18:43] VITALS: BP 146/88; PULSE 66; RESP 16; TEMP 35.3; O2SAT 99; BMI 27.6
--- NOTE | 2020-08-13 19:27 | ED.VIS.GEN ---
History of Present Illness Chief Complaint: Wound Informant: Patient Onset: Today Current Severity: Mild Maximum Severity: Mild Narrative: Patient scraped his right hand today and has had trouble getting the bleeding controlled. He is currently on Coumadin. INR was 2.6 at last check 3 weeks ago. 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 Mayco Williamson MD) Father Myocardial infarction, Onset Age: 82 Brother Heart disease Family History: Reports: Heart Disease Paternal Family History: Family History (Last Reviewed 07/17/20 @ 19:[address] Mayco Williamson MD) Father Myocardial infarction, Onset Age: 82 Brother Heart disease Family History: Reports: Heart Disease Review of Systems General: Denies: Chills, Fever Eyes: Denies: Visual changes - bilaterally ENT: Denies: Bilateral ear pain Cardiovascular: Denies: Chest pain Respiratory: Denies: Dyspnea, Cough Gastrointestinal: Denies: Abdominal pain Musculoskeletal: Denies: Extremity Pain Skin: Reports: Wounds Neurological: Denies: Headache Hematologic: Denies: Easy bruising, Easy bleeding Allergy: Denies: Uticaria Physical Exam Vital Signs/Narrative: Vital Signs Temp Pulse Resp BP Pulse Ox 08/13/20 18:43 95.5 F L 66 16 146/88 H 99 Inital Vital Signs reviewed: Yes General: Well nourished, Well developed Head: Normocephalic ENT: Moist mucous membranes Cardiovascular: Irregular Respiratory: No distress, CTA bilaterally Abdomen: Soft, Nontender Extremities: - - 2 mm flap superficial injury to the back of the right hand. Focal area of mild bleeding. No bony tenderness. Psychological: Normal affect Diagnostic/Tx/Re-eval - Medical Decision Making Pressure was held over the wound and hand was elevated. Bleeding stopped at that point. Wound was cleansed and wound was sealed with silver nitrate stick. This was covered with a piece of Surgifoam and dressing applied. After 20 minutes wound was checked and no further bleeding has been noted. Patient will be discharged home. ED Disposition - Plan for ED Patient: Disposition: Home or Assisted Living Diagnosis: Abrasion Instructions: ED Abrasion Referrals: Yehuda Richards III, MD [Primary Care Provider] - As Needed
[2020-08-13] MEDS: Silver Nitrate (BKC) 1 EACH TOPICAL (19:31)
[2020-08-13 19:42] VITALS: BP 151/55; RESP 16
== END 2020-08-13 19:43 | disposition home or self-care (01) ==
PROVIDERS: Emergency Provider Emergency Medicine; PCP Family Medicine
DX: S60.511A Abrasion of right hand, initial encounter (principal); I25.10 Atherosclerotic heart disease of native coronary artery without angina pectoris; I11.0 Hypertensive heart disease with heart failure; I50.9 Heart failure, unspecified; E78.5 Hyperlipidemia, unspecified; I48.91 Unspecified atrial fibrillation; X58.XXXA Exposure to other specified factors, initial encounter; Z95.3 Presence of xenogenic heart valve; Z79.01 Long term (current) use of anticoagulants
CPT/HCPCS: 99282

== ENCOUNTER → 2020-12-01 11:26 | Outpatient (CLI) | payer MEDICARE, SELFPAY ==
[2020-12-01 13:20] LABS: Anion Gap 7 (5-15); BUN 26 mg/dL (7-18); BUN/Creat Ratio 21.7 RATIO (10-20); Calcium,Total 8.8 mg/dL (8.5-10.1); Chloride 104 mmol/L (98-107); EST Glomerular Filtration Rate 61 mL/min (>60); Est Glom Filt Rate - Afr Amer 74 mL/min (>60); Glucose 82 mg/dL (74-106); Potassium 4.4 mmol/L (3.5-5.1); Sodium Level 138 mmol/L (136-145)
== END ==
PROVIDERS: PCP Family Medicine; Referring Provider Internal Medicine Cardiovascular Disease; Visit Provider Internal Medicine Cardiovascular Disease
DX: I11.0 Hypertensive heart disease with heart failure (principal); I50.33 Acute on chronic diastolic (congestive) heart failure; I25.10 Atherosclerotic heart disease of native coronary artery without angina pectoris; I48.91 Unspecified atrial fibrillation; I48.92 Unspecified atrial flutter; R06.02 Shortness of breath
CPT/HCPCS: 36415; 80048

== ENCOUNTER → 2021-01-05 11:25 | Outpatient (CLI) | payer MEDICARE, SELFPAY ==
[2020-12-27 16:10] VITALS: BMI 27.1
[2021-01-05 12:46] LABS: BNP,B-Type NATRIURETIC PEPTIDE 415.9 pg/mL (0-100)
[2021-01-05 12:47] LABS: Anion Gap 7 (5-15); BUN 26 mg/dL (7-18); BUN/Creat Ratio 21.3 RATIO (10-20); Calcium,Total 8.8 mg/dL (8.5-10.1); Chloride 103 mmol/L (98-107); Creatinine, Serum 1.22 mg/dL (0.70-1.30); EST Glomerular Filtration Rate 60 mL/min (>60); Est Glom Filt Rate - Afr Amer 73 mL/min (>60); Glucose 98 mg/dL (74-106); Potassium 4.4 mmol/L (3.5-5.1); Sodium Level 138 mmol/L (136-145)
== END ==
PROVIDERS: PCP Family Medicine; Visit Provider Internal Medicine Cardiovascular Disease
DX: I50.32 Chronic diastolic (congestive) heart failure (principal)
CPT/HCPCS: 36415; 80048; 83880

== ENCOUNTER → 2021-11-21 | Outpatient (CLI) | payer MEDICARE, SELFPAY ==
--- NOTE | 2021-11-21 14:01 | ECHOD_ITS ---
Reason For Study: AVR Procedure This was a 2D Doppler, Color Flow transthoracic echocardiogram. The exam was of adequate technical quality. Exam performed in department. Left Ventricle Normal LV size. Mild concentric left ventricular hypertrophy. Left ventricular systolic function is normal. The estimated ejection fraction is 55 %. Post operative septal motion. Unable to assess diastolic dysfunction. Right Ventricle Normal RV size. Normal systolic function. Atria The left atrium is moderately enlarged. The right atrium is mildly enlarged. No doppler evidence for ASD. Mitral Valve There is no mitral annular calcification. Anterior leaflet diffuse mitral valve thickening. Mild focal mitral valve calcification of the anterior leaflet. Mild (1+) mitral valve insufficiency. Tricuspid Valve Normal tricuspid valve. Mild tricuspid valve insufficiency. Right ventricular systolic pressure estimated to be 32 mmHg. Aortic Valve Stable appearing bioprosthetic aortic valve apparatus. Mild transvalvular insufficiency of the aortic valve. Pulmonic Valve The pulmonic valve is not well visualized. Mild (1+) pulmonic valve insufficiency. Great Vessels Borderline enlarged aortic root. Pericardium/Pleural No pericardial effusion. MMode/2D Measurements & Calculations LVIDd: 5.7 cm IVSd: 1.5 cm LVOT diam: 2.3 cm LVIDs: 4.1 cm LVPWd: 1.3 cm LVOT area: 4.1 cm2 RVDd: 3.4 cm FS: 27.5 % Ao root diam: 3.8 cm LAV(MOD-bp): 121.4 ml LVAd ap4: 44.1 cm2 LAV(MOD-bp) Indexed: 56.7 ml/m2 LVLd ap4: 8.8 cm LAV(MOD-sp2): 93.9 ml EDV(MOD-sp4): 188.0 ml LAV(MOD-sp4): 116.8 ml EDV(sp4-el): 187.3 ml LVAs ap4: 26.0 cm2 LVLs ap4: 7.5 cm ESV(MOD-sp4): 76.7 ml ESV(sp4-el): 76.9 ml EF(MOD-sp4): 59.2 % EF(sp4-el): 59.0 % LVAd ap2: 36.1 cm2 SV(MOD-sp4): 111.3 ml SV(MOD-sp2): 56.9 ml LVLd ap2: 8.8 cm EDV(MOD-sp2): 124.2 ml EDV(sp2-el): 126.2 ml LVAs ap2: 25.1 cm2 LVLs ap2: 8.0 cm ESV(MOD-sp2): 67.3 ml ESV(sp2-el): 67.3 ml EF(MOD-sp2): 45.8 % SV(sp4-el): 110.5 ml LA dimension(2D): 5.6 cm LA A4 area: 32.6 cm2 RA A4 area: 25.9 cm2 Doppler Measurements & Calculations MV E max zander: 101.5 cm/sec Ao V2 max: 256.8 cm/sec LV V1 max: 151.3 cm/sec Ao max P.5 mmHg LV V1 max P.2 mmHg Ao V2 mean: 175.8 cm/sec LV V1 mean P.7 mmHg Ao mean P.9 mmHg LV V1 mean: 101.6 cm/sec Ao V2 VTI: 60.9 cm LV V1 VTI: 35.[address](I,D): 2.[address](V,D): 2.4 cm2 SV(LVOT): 145.4 ml PA V2 max: 90.0 cm/sec TR max zander: 267.1 cm/sec TR max P.6 mmHg ECHO/Echo Complete Interpretation Summary Left ventricular systolic function is normal. The estimated ejection fraction is 55 %. Mild concentric left ventricular hypertrophy. Post operative septal motion. The left atrium is moderately enlarged. The right atrium is mildly enlarged. Anterior leaflet diffuse mitral valve thickening. Mild focal mitral valve calcification of the anterior leaflet. Mild (1+) mitral valve insufficiency. Mild tricuspid valve insufficiency. Stable appearing bioprosthetic aortic valve apparatus. Mild transvalvular insufficiency of the aortic valve. Mild (1+) pulmonic valve insufficiency. Borderline enlarged aortic root. Right ventricular systolic pressure estimated to be 32 mmHg. Unable to assess diastolic dysfunction. Ordering Physician: Dwayne Garcia Referring Physician: Yuri Arteaga Performed By: Tabitha Nguyen RDCS
== END | disposition home or self-care (01) ==
LOC: CVS 13:59
PROVIDERS: PCP Family Medicine; Referring Provider Internal Medicine Cardiovascular Disease; Visit Provider Internal Medicine Cardiovascular Disease
DX: I25.10 Atherosclerotic heart disease of native coronary artery without angina pectoris (principal); I11.0 Hypertensive heart disease with heart failure; I50.33 Acute on chronic diastolic (congestive) heart failure; I71.2 Thoracic aortic aneurysm, without rupture; I48.91 Unspecified atrial fibrillation; I48.92 Unspecified atrial flutter; E78.5 Hyperlipidemia, unspecified; Z95.3 Presence of xenogenic heart valve
CPT/HCPCS: 93306

== ENCOUNTER → 2022-08-14 | Outpatient (CLI) | payer MEDICARE, SELFPAY ==
--- NOTE | 2022-08-14 14:53 | RAD_ITS ---
STUDY: X-RAY CHEST REASON FOR EXAM: Male, 86 years old. Shortness of breath and cough TECHNIQUE: PA and lateral views of the chest. COMPARISON: 07/27/2020 FINDINGS: Lungs are expanded with chronic interstitial changes in both lung cabezas, no organized infiltrate but there is blunting of both costophrenic angles suggesting small bilateral pleural effusions are present. Sternal cerclage wires and vascular clips are present from a prior sternotomy and coronary artery bypass graft procedure (CABG). Normal mediastinum and donta. Normal visualized pulmonary arteries. There is atherosclerotic calcification of the aortic arch with tortuosity. There are diffuse degenerative changes of the visualized thoracic spine. Normal visualized ribs, clavicles, and shoulders. There is no demonstrated abnormality of the visualized soft tissue structures of the upper abdomen. RAD/Chest PA and Lateral IMPRESSION: Chronic interstitial changes in both lung cabezas with small bilateral pleural effusions, follow-up recommended to assure resolution Electronically Signed: Sunday Luz MD at 15:07 EDT ,
[2022-08-14 15:39] LABS: Absolute Lymphocyte Count 1.07 X10^3/uL (0.83-4.51); Absolute Neutrophil Count 4.2 X10^3/uL (2.0-7.7); Basophil# 0.02 X10^3/uL; Basophil% 0.3 % (0-1); Eosinophil# 0.12 X10^3/uL; Eosinophils% 1.9 % (0-5); Hematocrit 39.8 % (40-54); Hemoglobin 12.6 g/dL (13.0-16.5); Lymphocyte # 1.07 X10^3/ul (0.83-4.51); Mean Corp Hgb Conc 31.7 g/dL (32-36); Mean Corpuscular Hgb 31.3 pg (27.0-32.0); Mean Corpuscular Volume 98.8 fL (80-94); Monocyte# 0.91 X10^3/uL; Monocyte% 14.4 % (0-10); NRBC Flagged by Analyzer 0 % (0-5); Neutrophil # 4.18 X10^3/uL (2.7-7.7); Neutrophil % 66.2 % (47-70); Platelet Count 149 K/mm3 (150-450); RBC Distribution Width CV 12.9 % (11.6-14.6); Red Blood Count 4.03 M/mm3 (4.6-6.2); White Blood Count 6.3 K/mm3 (4.4-11.0)
[2022-08-14 16:19] LABS: BNP,B-Type NATRIURETIC PEPTIDE 1396.8 pg/mL (0-100)
[2022-08-14 16:33] LABS: Thyroid Stim Hormone (TSH) 2.25 uIU/mL (0.358-3.74)
[2022-08-18 08:29] LABS: Vitamin D 1,25-Dihydroxy 22.5 pg/mL (24.8-81.5)
== END | disposition home or self-care (01) ==
PROVIDERS: PCP Family Medicine; Referring Provider Physician Assistant Medical; Visit Provider Physician Assistant Medical
DX: R06.09 Other forms of dyspnea (principal); I50.32 Chronic diastolic (congestive) heart failure; I11.0 Hypertensive heart disease with heart failure; R53.83 Other fatigue; Z95.3 Presence of xenogenic heart valve
CPT/HCPCS: 36415; 71046; 82652; 83880; 84443; 85025

== ENCOUNTER → 2022-08-30 | Outpatient (CLI) | payer MEDICARE, SELFPAY | END | disposition home or self-care (01) | LOC: PSN 12:27 | PROVIDERS: PCP Family Medicine; Referring Provider Physician Assistant Medical; Visit Provider Physician Assistant Medical | DX: R06.09 Other forms of dyspnea (principal); I50.32 Chronic diastolic (congestive) heart failure; R53.83 Other fatigue | CPT/HCPCS: 93225; 93226 ==

== ENCOUNTER 2022-09-29 18:09 | Emergency (ER) | payer MEDICARE, SELFPAY ==
[2022-09-29 18:09] VITALS: BP 154/57; PULSE 125; RESP 20; TEMP 36.2; O2SAT 95; BMI 29.4
--- NOTE | 2022-09-29 18:39 | EDS_ITS ---
HPI History of Present Illness Chief Complaint: Shortness of Breath Informant: patient and spouse/S.O. Onset/Context/Timing Onset: Month(s) Narrative Narrative: Patient and significant other fairly poor historians, however it sounds like he has had progressively worsening dyspnea with exertion over the past 2 months or more. They state that he has no known history of pulmonary problems, but when asked about cardiac history he has a history of A-fib and an aortic valve replacement, and is on warfarin chronically. The went to [place] 2 weeks ago they were gone for 10 days, he states he had some mild dyspnea with exertion while he was there but then once they got to the airport at the end of the trip it was much worse and he needed a wheelchair to get around the airport. He is having orthopnea now, called cardiology office before the weekend, today is Friday; they instructed him to double his Lasix for 2 days, and now for the last day or 2 he has gone back to normal. He did urinate a lot more after this, but states his legs are no better and just as swollen as they had been or worse. He has had a minor cough nonproductive no fevers or chills. He denies any asymmetry in his leg swelling, denies any pain in them. [facility] Medical History Abdominal aortic aneurysm without rupture Ataxia Atherosclerotic heart disease of [place] coronary artery without angina pectoris Atrial fibrillation and flutter Atrial flutter, chronic Chronic diastolic heart failure CVA (cerebral vascular accident) Essential hypertension History of bicuspid aortic valve Hyperlipidemia Inguinal hernia RBBB (right bundle branch block) Thoracic aortic aneurysm without rupture TIA (transient ischemic attack) Home Medications multivitamin,[id number] 27 mg-0.4 mg tablet 0.5 tab PO BID supplement 02/15/14 [History Last Taken 07/17/20] warfarin 2 mg tablet 2 mg PO SUTUTHSA blood thinner 05/06/17 [History Last Taken 07/16/20] spironolactone 25 mg tablet 25 mg PO MOWEFR diuretic 06/01/19 [History Last Taken 07/17/20] simvastatin 20 mg tablet 20 mg PO QHS cholesterol 07/17/20 [History Last Taken 07/16/20] warfarin 1 mg tablet 1 mg PO MOWEFR blood thinner 07/17/20 [History Last Taken 07/14/20] furosemide 40 mg tablet 40 mg PO BID diuretic #180 tabs 02/05/22 [Rx Last Taken Unknown] clopidogrel 75 mg tablet 75 mg PO DAILY antiplatelet #90 tabs 04/01/22 [Rx Last Taken Unknown] metoprolol tartrate 25 mg tablet 12.5 mg PO BID #180 tabs 08/14/22 [Rx Last Taken Unknown] Allergy/AdvReac Type Severity Reaction Status Date / Time codeine Allergy Severe hives Verified 09/29/22 18:13 Family History Father Myocardial infarction, Onset Age: 82 Brother Heart disease Surgical History History of aortic valve replacement with bioprosthetic valve (~08/10/07) History of inguinal hernia repair History of right and left heart catheterization (LHC) (~07/25/20) History of tonsillectomy Social History Smoking Status: Never smoker alcohol intake: never substance use type: does not use caffeine: Yes Type: tea Number of servings: 6 ROS ROS ED Constitutional Constitutional ED: Reports fatigue; Denies chills or fever(s) Eyes Eyes: Denies change in vision or diplopia ENT ENT ED: Denies rhinorrhea or sore throat Cardiovascular Cardiovascular: Reports leg edema and orthopnea; Denies chest pain, palpitations or paroxysmal nocturnal dyspnea Respiratory/Chest Respiratory/Chest: Reports cough, dyspnea, dyspnea on exertion and orthopnea; Denies paroxysmal nocturnal dyspnea Gastrointestinal Gastrointestinal: Denies abdominal pain, diarrhea, nausea or vomiting Genitourinary Genitourinary ED: Denies dysuria or hematuria Musculoskeletal Musculoskeletal: Denies back pain or neck pain Integumentary Denies abscess or rash Neurologic Neurologic: Denies headache(s), paresthesias or weakness Psychiatric Psychiatric: Denies anxiety or suicidal thoughts EXAM Physical Exam Const Vital Signs: 09/29/22 18:09 09/29/22 18:23 09/29/22 20:15 Temperature 97.2 F L Temperature Source Temporal Pulse Rate 125 H 68 Respiratory Rate 20 H 19 H Respiratory Effort Normal Non-Labored Respiratory Depth Normal Respiratory Pattern Normal Blood Pressure 154/57 H Blood Pressure Mean 89 Pulse Ox 95 Oxygen Delivery Method Room Air Room Air Positive well nourished and well developed General Appearance ED: well developed and NAD HEENT Reports moist mucous membranes normocephalic and atraumatic Eyes PERRL and EOMs intact bilaterally Neck full ROM, no lymphadenopathy, supple and no JVD Resp normal respiratory effort and clear to auscultation bilaterally Cardio Rate: Negative for tachycardic Rhythm: abnormal rhythm irregularly irregular Heart Sounds: S1 normal and abnormal sounds other (S3 versus fixed split S2) Peripheral Pulses: pulses 2+ throughout GI non-tender and non-distended Auscultation: normoactive bowel sounds Palpation: soft Back/Spine no CVA tenderness General Back: other FROM Extremity normal to inspection Extremity Narrative: No calf tenderness General Extremety ED: Yes edema; Negative for pulses abnormal or tenderness General Extremity: edema bilateral lower extremity Details: moderate (Symmetric without signs of infection/tenderness); Negative for pulses abnormal Neuro oriented x3, CN's II-XII intact bilaterally and no sensory deficits noted Sensorium / Orientation: awake and alert Motor Exam: strength 5/5 throughout Psych mental status grossly normal Skin no rashes or lesions noted and no wounds Skin Narrative: Small pinpoint puncture wound medial right lower leg with a Band-Aid on it no signs of infection or active discharge MDM MDM MDM Narrative Medical decision making narrative: Patient has history of congestive heart failure, which took searching through his EMR to discover since this was not provided. He does have bilateral lower extremity edema and orthopnea, suggestive of congestive heart failure, however clinically he does not sound wet, he is not hypoxic, he does not have obvious JVD at this time. Basically, patient's work-up is consistent with an exacerbation of his congestive heart failure. No signs of pneumonia. 2 view chest x-ray shows mild CHF, minor bilateral pleural effusions that are not large enough to be tapped on my interpretation, radiology in agreement generally. He does not have conversational dyspnea. His creatinine is a little elevated compared to his baseline however this is compared with values that were 2 years ago, and not high enough to qualify for BEAN at this time. Therefore I am giving him a dose of IV Lasix 40 mg, and we ambulated him with pulse oximetry on room air. He did very well, he became very mildly dyspneic, 95-96% on room air. I believe he is stable for outpatient treatment. Discussed with the on-call [employer] consultant Dr. Jaimes, he recommends keeping his Lasix at 40 mg twice daily now, which is increased for him, and he will follow closely in the office, family will call for an appointment they are comfortable with this plan. I did give him an extra dose here IV to make his third dose for the day, his blood pressure seems to be able to tolerated at 154/57. History & Record Review Additional record(s) reviewed:: Prior outpatient record (Echocardiogram showing diastolic congestive heart failure, chronic A-fib/flutter, aortic valve replacement) Lab Data Attestation: I reviewed the patient's lab results. Labs: Laboratory Results - last 24 hr 09/29/22 09/29/22 09/29/22 18:51 18:51 18:51 WBC 7.2 RBC 4.12 L Hgb 13.0 Hct 41.7 MCV 101.2 H MCH 31.6 MCHC 31.2 L RDW Std Deviation 50.8 H RDW Coeff of Alfonso 13.6 Plt Count 178 MPV 11.7 Immature Gran % (Auto) 0.300 Neut % (Auto) 67.0 Lymph % (Auto) 16.5 L [place] % (Auto) 12.7 H Eos % (Auto) 2.9 Baso % (Auto) 0.6 Absolute Neuts (auto) 4.8 Absolute Lymphs (auto) 1.19 Nucleated RBC % 0 PT INR Sodium 137 Potassium 4.8 Chloride 106 Carbon Dioxide 25.0 Anion Gap 6 BUN 37 H Creatinine 1.57 H Estim Creat Clear Calc 37.07 Est GFR (MDRD) Af Amer 54 L Est GFR (MDRD) Non-Af 45 L BUN/Creatinine Ratio 23.6 H Glucose 101 Calcium 9.1 Troponin I High Sens 53 B-Natriuretic Peptide 1662.8 H 09/29/22 09/29/22 18:51 19:12 WBC RBC Hgb Hct MCV MCH MCHC RDW Std Deviation RDW Coeff of Alfonso Plt Count MPV Immature Gran % (Auto) Neut % (Auto) Lymph % (Auto) [place] % (Auto) Eos % (Auto) Baso % (Auto) Absolute Neuts (auto) Absolute Lymphs (auto) Nucleated RBC % PT Cancelled 29.5 H INR Cancelled 2.8 Sodium Potassium Chloride Carbon Dioxide Anion Gap BUN Creatinine Estim Creat Clear Calc Est GFR (MDRD) Af Amer Est GFR (MDRD) Non-Af BUN/Creatinine Ratio Glucose Calcium Troponin I High Sens B-Natriuretic Peptide Radiography Diagnostic Testing: Clinical Impression(s) from Imaging Studies Chest X-Ray 09/29/22 19:02 IMPRESSION: Bilateral pleural effusions. Electronically Signed: Kenny Diaz MD at 19:17 EDT , Rhythm Strip Rhythm Strip: A-fib Rate: 90 Ectopy: None EKG Initial EKG: Attestation: I personally reviewed and interpreted this EKG as follows: Interpretation: No Acute Injury Pattern, Atrial Fibrillation (in 80's), RBBB and Non-Specific ST Changes Prior EKG tracings: available for review Prior: Unchanged Discharge Plan Triage Chief Complaint: Shortness of Breath ED Provider: Ihsan Rivero Dx/Rx/DC Orders Clinical Impression: Acute exacerbation of CHF (congestive heart failure) Instructions: Heart Failure Dc Prescriptions: No Action metoprolol tartrate 25 mg tablet 12.5 mg PO BID Qty: 180 3RF multivitamin,hp-kvgg-iekwzzoy 1 TABLET tablet 0.5 tab PO BID Label Comments: SUPPLEMENT warfarin 2 MG tablet 2 mg PO SUTUTHSA Label Comments: blood thinner/bridging with lovenox spironolactone 25 mg tablet 25 mg PO MOWEFR simvastatin 20 MG tablet 20 mg PO QHS warfarin 1 MG tablet 1 mg PO MOWEFR furosemide 40 mg tablet 40 mg PO BID Qty: 180 3RF clopidogrel 75 mg tablet 75 mg PO DAILY Qty: 90 3RF Primary Care Provider: Yuri Arteaga Referrals: Juan A Jaimes MD [Med Staff - Active Staff] - As soon as possible (or first available cardiology physician/[employer] MACHINE/PA -- call tomorrow for appt ) Yuri Arteaga MD [Primary Care Provider] - Activity Restrictions/Additional Instructions: Continue your medications, including Lasix 40 mg twice daily until you are seen by cardiology. For any worsening issues, you may present back to the ED at any time. Disposition Disposition: Home, Self Care
--- NOTE | 2022-09-29 19:02 | RAD_ITS ---
STUDY: XR Chest 2 Views 09/29/2022 6:47 PM REASON FOR EXAM: Male, 86 years old. CHEST PAIN sob COMPARISON: 08/14/2022 TECHNIQUE: XR Chest 2 Views FINDINGS: Bilateral pleural effusions. There are multiple median sternotomy wires. Enlarged heart size. Normal mediastinum. Normal donta. Prominent appearing increased interstitial lung markings. Normal visualized pulmonary arteries. There is atherosclerotic calcification of the aortic arch with tortuosity. There are diffuse degenerative changes of the visualized thoracic spine. There is degenerative osteoarthritis of the bilateral shoulders. There is no demonstrated abnormality of the visualized soft tissue structures of the upper abdomen. RAD/Chest PA and Lateral IMPRESSION: Bilateral pleural effusions. Electronically Signed: Kenny Diaz MD at 19:17 EDT ,
[2022-09-29 19:04] LABS: Absolute Lymphocyte Count 1.19 X10^3/uL (0.83-4.51); Absolute Neutrophil Count 4.8 X10^3/uL (2.0-7.7); Basophil# 0.04 X10^3/uL; Basophil% 0.6 % (0-1); Eosinophil# 0.21 X10^3/uL; Eosinophils% 2.9 % (0-5); Hematocrit 41.7 % (40-54); Lymphocyte # 1.19 X10^3/ul (0.83-4.51); Lymphocyte % 16.5 % (19-41); Mean Corp Hgb Conc 31.2 g/dL (32-36); Mean Corpuscular Hgb 31.6 pg (27.0-32.0); Mean Corpuscular Volume 101.2 fL (80-94); Mean Platelet Vol. 11.7 fl (6.2-12.0); Monocyte# 0.92 X10^3/uL; Monocyte% 12.7 % (0-10); NRBC Flagged by Analyzer 0 % (0-5); Neutrophil # 4.84 X10^3/uL (2.7-7.7); Platelet Count 178 K/mm3 (150-450); RBC Distribution Width CV 13.6 % (11.6-14.6); RBC Distribution Width SD 50.8 fl (35.1-43.9); Red Blood Count 4.12 M/mm3 (4.6-6.2); White Blood Count 7.2 K/mm3 (4.4-11.0)
[2022-09-29 19:25] LABS: Anion Gap 6 (5-15); BUN 37 mg/dL (7-18); BUN/Creat Ratio 23.6 RATIO (10-20); Calcium,Total 9.1 mg/dL (8.5-10.1); Chloride 106 mmol/L (98-107); Creatinine, Serum 1.57 mg/dL (0.70-1.30); EST Glomerular Filtration Rate 45 mL/min (>60); Est Glom Filt Rate - Afr Amer 54 mL/min (>60); Estimated Creatinine Clearance 37.07 ml/min; Glucose 101 mg/dL (74-106); Potassium 4.8 mmol/L (3.5-5.1); Sodium Level 137 mmol/L (136-145); Troponin-I HS 53 pg/mL (3.0-78.0)
[2022-09-29 19:30] LABS: International Normalized Ratio 2.8; Prothrombin Time (Protime)PT. 29.5 SECONDS (11.7-14.9)
[2022-09-29 19:37] LABS: BNP,B-Type NATRIURETIC PEPTIDE 1662.8 pg/mL (0-100)
[2022-09-29] MEDS: Furosemide 40 MG/4 ML Vial IV (20:14)
[2022-09-29 20:15] VITALS: PULSE 68; RESP 19
[2022-09-29 20:16] VITALS: O2SAT 93
== END 2022-09-29 20:49 | disposition home or self-care (01) ==
PROVIDERS: Emergency Provider Emergency Medicine; PCP Family Medicine; Visit Provider Emergency Medicine
DX: I50.32 Chronic diastolic (congestive) heart failure (principal); I11.0 Hypertensive heart disease with heart failure; I48.20 Chronic atrial fibrillation, unspecified; I25.10 Atherosclerotic heart disease of native coronary artery without angina pectoris; E78.5 Hyperlipidemia, unspecified; Z86.73 Personal history of transient ischemic attack (TIA), and cerebral infarction without residual deficits; Z79.01 Long term (current) use of anticoagulants; Z79.899 Other long term (current) drug therapy
CPT/HCPCS: 71046; 80048; 83880; 84484; 85025; 85610; 93005; 96374; 99283; A4216; J1940

== ENCOUNTER → 2022-10-04 | Outpatient (CLI) | payer MEDICARE, SELFPAY ==
--- NOTE | 2022-10-04 13:03 | ECHOCS_ITS ---
Reason For Study: CHF Procedure This was a 2D Doppler, Color Flow transthoracic echocardiogram. The study was technically difficult. Contrast injection was performed. Exam performed in department. Left Ventricle Normal LV size. Left ventricular systolic function is normal. The estimated ejection fraction is 55 %. Basal inferoseptal: Severely Hypokinetic. Infero-Basal: Akinetic. Right Ventricle Normal RV size. Normal systolic function. Atria The left atrium is moderately enlarged. The right atrium is mildly enlarged. Mitral Valve Bileaflet diffuse mitral valve thickening. Mild (1+) eccentric mitral valve insufficiency. Tricuspid Valve Normal tricuspid valve. Mild (1+) tricuspid valve insufficiency. Pulmonary artery systolic pressure is 26 mmHg. Aortic Valve Peak aortic valve gradient 23 mmHg. Mean aortic valve gradient 13 mmHg. Bioprosthetic aortic valve. Pulmonic Valve Normal pulmonic valve. Mild pulmonic valve insufficiency identified. Great Vessels Normal aortic root. The pulmonary artery is normal size. Normal inferior vena cava. Pericardium/Pleural No pericardial effusion. Medication 22 gauge I.V. with prn adaptor inserted into left arm. Diluted definity 3ml given slow IV push to enhance endocardial definition. MMode/2D Measurements & Calculations LVIDd: 6.9 cm IVSd: 0.94 cm LVOT diam: 2.0 cm LVIDs: 4.6 cm LVPWd: 1.1 cm RVDd: 3.8 cm FS: 33.8 % LVOT area: 3.2 cm2 Ao root diam: 3.5 cm LAV(MOD-bp): 144.4 ml RVOT diam: 3.4 cm LAV(MOD-bp) Indexed: 67.5 ml/m2 LAV(MOD-sp2): 132.2 ml LAV(MOD-sp4): 150.4 ml SV(MOD-sp4): 107.4 ml SV(sp4-el): 111.2 ml LVAd ap4: 48.9 cm2 LVLd ap4: 8.8 cm EDV(MOD-sp4): 225.2 ml EDV(sp4-el): 231.3 ml LVAs ap4: 34.5 cm2 LVLs ap4: 8.4 cm ESV(MOD-sp4): 117.8 ml ESV(sp4-el): 120.0 ml EF(MOD-sp4): 47.7 % EF(sp4-el): 48.1 % LA A4 area: 34.5 cm2 LA dimension(2D): 6.0 cm RA A4 area: 23.4 cm2 TAPSE_phl: 2.6 cm Time Measurements MV dec time: 0.15 sec Doppler Measurements & Calculations MV E max marek: 86.8 cm/sec Lat Peak E' Marek: 8.5 cm/sec Med Peak E' Marek: 4.2 cm/sec MV A max marek: 48.9 cm/sec E/E' lat: 10.2 E/E' med: 20.7 MV E/A: 1.8 MV dec slope: 573.2 cm/sec2 Ao V2 max: 238.3 cm/sec LV V1 max: 179.8 cm/sec Ao max P.7 mmHg LV V1 max P.9 mmHg Ao V2 mean: 169.6 cm/sec LV V1 mean P.4 mmHg Ao mean P.1 mmHg LV V1 mean: 107.7 cm/sec Ao V2 VTI: 62.0 cm LV V1 VTI: 50.8 cm AV (velocity ratio): 0.82 COURT(I,D): 2.[address](V,D): 2.4 cm2 MR max marek: 368.8 cm/sec SV(LVOT): 162.1 ml PA V2 max: 92.9 cm/sec MR max P.4 mmHg PA V2 mean: 59.0 cm/sec TR max marek: 244.1 cm/sec TR max P.8 mmHg ECHO/Echo Complete W/ Contrast Interpretation Summary Normal LV size. Left ventricular systolic function is normal. The estimated ejection fraction is 55 %. Pulmonary artery systolic pressure is 26 mmHg. The left atrium is moderately enlarged. The right atrium is mildly enlarged. Contrast injection was performed. Ordering Physician: Arley Sal Referring Physician: Pilo Villaseñor Performed By: Leyla Landers RCS
== END | disposition home or self-care (01) ==
LOC: CVS 13:01
PROVIDERS: PCP Family Medicine; Referring Provider Internal Medicine Cardiovascular Disease; Visit Provider Internal Medicine Cardiovascular Disease
DX: I25.10 Atherosclerotic heart disease of native coronary artery without angina pectoris (principal); I50.9 Heart failure, unspecified
CPT/HCPCS: 93306; Q9957; A4216; C8929

== ENCOUNTER → 2022-12-30 | Outpatient (CLI) | payer MEDICARE, SELFPAY ==
--- NOTE | 2022-12-30 15:24 | US_ITS ---
INDICATION: CHRONIC KIDNEY DISEASE, UNSPECIFIED EXAMINATION: Ultrasound US Kidney(s) complete (eg, kidneys and bladder) TECHNIQUE: Vasquez scale and color doppler images were obtained of the kidneys. COMPARISON: None. FINDINGS: RIGHT KIDNEY: Right kidney normal size and echotexture, measuring 11.2 x 5.4 x 4.7 cm with cortical thickness of 1.4 cm. There is no hydronephrosis. No shadowing calculus, focal lesion or perinephric collection is demonstrated. LEFT KIDNEY: Left kidney normal size and echotexture, measuring 10.8 x 4.2 x 5.2 cm with cortical thickness of 1.2 cm. There is no hydronephrosis. No shadowing calculus, focal lesion or perinephric collection is demonstrated. URINARY BLADDER: Incompletely distended urinary bladder with volume of 71 mL. Enlarged, lobulated and heterogeneous prostate gland measures 6.9 x 4.7 x 6.1 cm. US/Kidney and Bladder IMPRESSION: 1. Lobulated and enlarged prostate gland. Consider urologic follow-up for workup of possible prostate neoplasm versus benign hypertrophy. 2. Unremarkable bilateral kidneys. Electronically Signed: Florentin Pinto MD at 7:56 EDT ,
== END | disposition home or self-care (01) ==
PROVIDERS: PCP Family Medicine; Referring Provider Internal Medicine Nephrology; Visit Provider Internal Medicine Nephrology
DX: N18.9 Chronic kidney disease, unspecified (principal)
CPT/HCPCS: 76770

== ENCOUNTER → 2023-07-17 | Outpatient (CLI) | payer MEDICARE, SELFPAY ==
--- NOTE | 2023-07-17 13:58 | CDU_ITS ---
Reason For Study: Carotid bruit Rt. Velocities/BP Lt. Velocities/BP Prox CCA 79.8 cm/sec. Prox CCA 72.4 cm/sec. Mid CCA 40.7 cm/sec. Mid CCA 51.6 cm/sec. Dist CCA 38.1 cm/sec. Dist CCA 53.5 cm/sec. Prox ICA 30.3 cm/sec. Prox ICA 67.6 cm/sec. Mid ICA 46.7 cm/sec. Mid ICA 112.5/4.7 cm/sec. Dist ICA 53.7/1.5 cm/sec. Dist ICA 98.9/4.8 cm/sec. Rt. ICA/CCA = 1.32. Lt. ICA/CCA = 2.10. Prox ECA 57.4 cm/sec. Prox ECA 68.6 cm/sec. Rt. Vert. 32.7 cm/sec. Lt. Vert. 55.6/6.2 cm/sec. Right Extracranial There is intimal thickening but no significant atherosclerotic plaque noted in the right common carotid artery. There is heterogeneous, irregular atherosclerotic plaque noted in the right internal carotid artery. There is heterogeneous, irregular atherosclerotic plaque noted in the right external carotid artery. Antegrade flow is noted in the right vertebral artery. Left Extracranial There is intimal thickening but no significant atherosclerotic plaque noted in the left common carotid artery. There is heterogeneous, irregular atherosclerotic plaque noted in the left internal carotid artery. There is homogeneous, smooth atherosclerotic plaque noted in the left external carotid artery. Antegrade flow is noted in the left vertebral artery. Procedure Carotid Duplex 56222. This is a Carotid Duplex examination using B-mode, color flow and specral Doppler. Exam performed in department. VL/Carotid Duplex Ultrasound Interpretation Summary Mild (<50%) stenosis right extracranial internal carotid. Mild (<50%) stenosis left extracranial internal carotid. Patent and antegrade vertebrals bilaterally. Ordering Physician: Belinda Carvajal Referring Physician: Yuri Arteaga Performed By: Geraldine Alcantara RVT
== END | disposition home or self-care (01) ==
LOC: CVS 13:56
PROVIDERS: PCP Family Medicine; Referring Provider Physician Assistant Medical; Visit Provider Physician Assistant Medical
DX: R09.89 Other specified symptoms and signs involving the circulatory and respiratory systems (principal)
CPT/HCPCS: 93880

== ENCOUNTER 2024-01-01 13:32 | Emergency (ER) | payer MEDICARE, SELFPAY ==
[2024-01-01 13:34] VITALS: BP 115/55; PULSE 43; RESP 20; TEMP 36.1; O2SAT 97
[2024-01-01 13:44] VITALS: BP 115/55; PULSE 93; RESP 28; TEMP 36.3; O2SAT 98
[2024-01-01 13:50] VITALS: BMI 27.5
--- NOTE | 2024-01-01 14:05 | EKG12_ITS ---
Test Reason : SOB Blood Pressure : / mmHG Vent. Rate : 079 BPM Atrial Rate : 000 BPM P-R Int : 000 ms QRS Dur : 156 ms QT Int : 456 ms P-R-T Axes : 000 075 -44 degrees QTc Int : 522 ms Atrial fibrillation Right bundle branch block T wave abnormality, consider inferior ischemia Abnormal ECG Confirmed by DEMETRI MILIAN, LUPE ([id number]), editorial project manager BASIM RODRÍGUEZ ([id number]) on 01/02/2024 9:31:33 AM Referred By: TB Confirmed By:LUPE MOSQUERA MD
--- NOTE | 2024-01-01 14:15 | RAD_ITS ---
STUDY: X-RAY CHEST REASON FOR EXAM: Male, 88 years old. Rales left lower lobe, egophony LLL, nonproductive TECHNIQUE: PA and lateral views of the chest. COMPARISON: Comparison is made with prior study dated September 29, 2022. FINDINGS: EKG electrodes are seen. There is hyperinflation of the lungs consistent with chronic obstructive lung disease (COPD). Stable increased markings at the lung bases slightly worse on the left side suggestive of bibasilar scarring. There is no demonstrated pleural abnormality. Sternal cerclage wires are present from a prior sternotomy. The patient is status post aortic valve replacement. Normal mediastinum and donta. Normal visualized pulmonary arteries. There is atherosclerotic calcification of the aortic arch with tortuosity. Normal visualized thoracic spine. Normal visualized ribs, clavicles, and shoulders. There is no demonstrated abnormality of the visualized soft tissue structures of the upper abdomen. RAD/Chest PA and Lateral IMPRESSION: Hyperinflation. Findings suggestive of a bibasilar scarring. Electronically Signed: Chilo Montalvo MD at 14:27 EDT ,
[2024-01-01 14:28] LABS: Absolute Lymphocyte Count 1.33 X10^3/uL (0.83-4.51); Absolute Neutrophil Count 7.3 X10^3/uL (2.0-7.7); Basophil# 0.03 X10^3/uL; Basophil% 0.3 % (0-1); Eosinophil# 0.01 X10^3/uL; Eosinophils% 0.1 % (0-5); Hematocrit 35.2 % (40-54); Hemoglobin 11.8 g/dL (13.0-16.5); Lymphocyte # 1.33 X10^3/ul (0.83-4.51); Lymphocyte % 13.9 % (19-41); Mean Corp Hgb Conc 33.5 g/dL (32-36); Mean Corpuscular Hgb 31.3 pg (27.0-32.0); Mean Corpuscular Volume 93.4 fL (80-94); Mean Platelet Vol. 13.2 fl (6.2-12.0); Monocyte# 0.86 X10^3/uL; NRBC Flagged by Analyzer 0 % (0-5); Neutrophil # 7.32 X10^3/uL (2.7-7.7); Neutrophil % 76.3 % (47-70); POSITIVE MORPHOLOGY YES; Platelet Count 157 K/mm3 (150-450); RBC Distribution Width CV 12.8 % (11.6-14.6); RBC Distribution Width SD 43.8 fl (35.1-43.9); Red Blood Count 3.77 M/mm3 (4.6-6.2); White Blood Count 9.6 K/mm3 (4.4-11.0)
[2024-01-01 14:36] VITALS: BP 128/91; PULSE 76; RESP 17; TEMP 36.4; O2SAT 97
--- NOTE | 2024-01-01 14:53 | EX.ED.DYSGE1 ---
HPI History of Present Illness Chief Complaint: Shortness of Breath Detail of Chief Complaint: Cough that is nonproductive and shortness of breath Informant: patient Onset/Context/Timing Onset: Weeks (Onset 2 to 3 weeks ago) Context: Sudden Onset Timing: Intermittent and Waxes and wanes Quality: Dyspnea, nonproductive cough fatigue Location: Respiratory Current Severity: Mild Maximum Severity: Moderate Worsened by: Denies dyspnea on exertion or any other symptoms Relieved by: Nothing Associated Symptoms Associated Symptoms: Fatigue Narrative Narrative: Patient is a 68-year-old male. He has history of chronic atrial fibrillation on Coumadin, congestive heart failure, dyspnea on exertion, atherosclerotic heart disease, essential hypertension, replacement of aortic valve, hyperlipidemia and known thoracic and abdominal aortic aneurysm without rupture. Who presents with a persistent nagging cough for the past 2 to 3 weeks. The cough is nonproductive. He does report shortness of breath. He denies dyspnea on exertion, orthopnea or PND. He denies chest discomfort of any type. He denies history of PE or DVT. He denies risk factors for PE or DVT. Furthermore he is on anticoagulant. Denies leg pain or discoloration. He does have chronic edema. Patient denies black or maroon-colored stool. He denies fever, chills or night sweats. Denies weight gain or weight loss. He denies rhinorrhea, congestion, postnasal drainage sore throat. Prior similar symptoms: Yes Recent Illness/Hospitalization: No PFSH [facility] Medical History CVA (cerebral vascular accident) History of bicuspid aortic valve RBBB (right bundle branch block) Abdominal aortic aneurysm without rupture Thoracic aortic aneurysm without rupture Chronic diastolic heart failure Atherosclerotic heart disease of [place] coronary artery without angina pectoris Atrial flutter, chronic Essential hypertension Ataxia Inguinal hernia Atrial fibrillation and flutter TIA (transient ischemic attack) Hyperlipidemia Home Medications ?Medication ?Instructions ?Recorded ?Last Taken ?Type multivitamin,[id number]-[id number] 27 0.5 tab PO BID supplement 02/15/14 07/17/20 History mg-0.4 mg tablet warfarin 2 mg tablet 2 mg PO SUTUTHSA blood thinner 05/06/17 07/16/20 History simvastatin 20 mg tablet 20 mg PO QHS cholesterol 07/17/20 07/16/20 History warfarin 1 mg tablet 1 mg PO MOWEFR blood thinner 07/17/20 07/14/20 History metoprolol tartrate 25 mg tablet 12.5 mg (1/2 x 25 mg) PO BID #180 08/14/22 Unknown Rx tabs Handicap Placard #1 ea 09/30/22 Unknown Rx spironolactone 25 mg tablet 25 mg PO DAILY diuretic #90 tabs 09/22/23 Unknown Rx furosemide 40 mg tablet 60 mg (1.5 x 40 mg) PO BID 12/22/23 Unknown Rx diuretic #270 tabs Allergy/AdvReac Type Severity Reaction Status Date / Time codeine Allergy Severe hives Verified 07/09/23 14:01 Family History Father Myocardial infarction, Onset Age: 82 Brother Heart disease Surgical History History of right and left heart catheterization (LHC) (~07/25/20) History of tonsillectomy History of inguinal hernia repair History of aortic valve replacement with bioprosthetic valve (~08/10/07) Social History Smoking Status: Never smoker alcohol intake: never substance use type: does not use caffeine: Yes Type: tea Number of servings: 6 ROS ROS ED Constitutional Constitutional ED: Denies chills, fever(s), subjective, sweats or weight loss Eyes Eyes: Denies blurry vision or change in vision ENT ENT ED: Denies ear pain, rhinorrhea or sore throat Cardiovascular Cardiovascular: Denies chest pain, orthopnea, palpitations, paroxysmal nocturnal dyspnea or racing heartbeat Respiratory/Chest Respiratory/Chest: Reports cough and dyspnea; Denies dyspnea on exertion, orthopnea, paroxysmal nocturnal dyspnea or sputum Gastrointestinal Gastrointestinal: Denies abdominal pain, melena, nausea or vomiting Genitourinary Genitourinary ED: Denies dysuria, hematuria or urinary frequency Musculoskeletal Musculoskeletal: Denies arthralgias, back pain, myalgias or neck pain Integumentary Denies rash Neurologic Neurologic: Denies headache(s) or paresthesias Psychiatric Psychiatric: Denies anxiety, depression or suicidal ideation Endocrine Endocrinology: Denies cold intolerance or heat intolerance Hematologic/Lymphatic Hematologic/Lymphatic: Reports systems reviewed and no addt'l complaints, except as documented EXAM Physical Exam Const Vital Signs: 01/01/24 13:34 01/01/24 13:44 01/01/24 13:44 Temperature 97.0 F L 97.3 F L Temperature Source Temporal Temporal Pulse Rate 43 L 93 Respiratory Rate 20 H 28 H Respiratory Effort Normal Non-Labored Respiratory Depth Normal Respiratory Pattern Normal Blood Pressure 115/55 L 115/55 L Blood Pressure Mean 75 75 Pulse Ox 97 98 Oxygen Delivery Method Room Air Room Air Room Air 01/01/24 14:36 01/01/24 15:00 01/01/24 15:33 Temperature 97.5 F L 97.6 F L Temperature Source Temporal Temporal Pulse Rate 76 92 88 Respiratory Rate 17 18 18 Respiratory Effort Respiratory Depth Respiratory Pattern Blood Pressure 128/91 H 115/44 L 121/52 H Blood Pressure Mean 103 67 75 Pulse Ox 97 98 98 Oxygen Delivery Method Room Air Room Air Room Air Patient's vital signs are noted. I believe his pulse of 43 was an error. This is probably because he is has an irregular regular rhythm and was not counted for a complete minute. Positive well nourished and well developed General Appearance ED: well developed and NAD HEENT Reports moist mucous membranes HEENT Narrative: Ears normal. TMs normal. Nares patent without discharge. Posterior pharynx out erythema or exudate. Uvula midline. No deviation with protrusion. Eyes PERRL and EOMs intact bilaterally General Eye ED: Negative for pale conjunctiva or scleral icterus Neck no lymphadenopathy, supple and no JVD Chest Wall inspection of chest normal and palpation of chest normal Resp normal respiratory effort and No clear to auscultation bilaterally Resp Narrative: Patient has rales left lower lobe posteriorly with egophony. There is no increased vocal fremitus. Cardio regular rate Rhythm: abnormal rhythm irregularly irregular GI normal to inspection, nondistended, normoactive bowel sounds, non-tender, non-distended and no masses; Negative for hepatosplenomegaly Palpation: soft Back/Spine no CVA tenderness Extremity Extremity Narrative: Pitting edema both lower extremities. There is no leg vein distention, palpable cords tenderness on the distribution deep venous system. There is no leg vein distention. Admit to interesting stroke General Extremety ED: Yes edema General Extremity: edema Neuro oriented x3, CN's II-XII intact bilaterally and no sensory deficits noted Sensorium / Orientation: alert Motor Exam: strength 5/5 throughout Psych mental status grossly normal Skin no rashes or lesions noted, no wounds and skin turgor normal [facility] Lab Data Attestation: I reviewed the patient's lab results. Lab results narrative: CBC reveals anemia with normal indices. Electrolyte panel reveals elevated BUN/creatinine of 80 and 2.7. Patient's most recent creatinine was approximately 1.6. Today's creatinine is 2.7. This can be followed as an outpatient. Labs: Laboratory Results - last 24 hr 01/01/24 01/01/24 13:52 14:27 WBC 9.6 RBC 3.77 L Hgb 11.8 L Hct 35.2 L MCV 93.4 MCH 31.3 MCHC 33.5 RDW Std Deviation 43.8 RDW Coeff of Alfonso 12.8 Plt Count 157 MPV 13.2 H Immature Gran % (Auto) 0.400 Neut % (Auto) 76.3 H Lymph % (Auto) 13.9 L [place] % (Auto) 9.0 Eos % (Auto) 0.1 Baso % (Auto) 0.3 Absolute Neuts (auto) 7.3 Absolute Lymphs (auto) 1.33 Nucleated RBC % 0 Sodium Cancelled 135 L Potassium Cancelled 5.0 Chloride Cancelled 104 Carbon Dioxide Cancelled 21.0 Anion Gap Cancelled 10 BUN Cancelled 80 H Creatinine Cancelled 2.70 H Estim Creat Clear Calc Cancelled 20.76 Est GFR (MDRD) Af Amer Cancelled 29 L Est GFR (MDRD) Non-Af Cancelled 24 L BUN/Creatinine Ratio Cancelled 29.6 H Glucose Cancelled 175 H Calcium Cancelled 8.5 Radiography Chest X-Ray - ED: 2 View and Read by ED Physician (2 view chest x-ray reveals atelectasis versus scarring at the bases. There is no evidence of infiltrate. There is no evidence of effusion. Borderline cardiomegaly. Hilum is normal. Osseous structures are unremarkable.) Diagnostic Testing: Clinical Impression(s) from Imaging Studies Chest X-Ray 01/01/24 14:15 IMPRESSION: Hyperinflation. Findings suggestive of a bibasilar scarring. Electronically Signed: Chilo Montalvo MD at 14:27 EDT , Discharge Plan Triage Chief Complaint: Shortness of Breath Other Complaint: Complaint ED Provider: Joe Weston Dx/Rx/DC Orders Clinical Impression: COVID-19 virus infection, Essential hypertension, RUIZ (dyspnea on exertion), Nonproductive cough, Acute kidney injury superimposed on stage 2 chronic kidney disease, Atrial fibrillation, Anticoagulant long-term use Instructions: Coronavirus Disease 2019 (COVID-19): Caring for Yourself or Others, Hypertension and Kidney Disease Prescriptions: No Action metoprolol tartrate 25 mg tablet 12.5 mg PO BID Qty: 180 3RF (DME) Handicap Placard See Rx Instructions .Route .MEDSUPPLY Qty: 1 0RF Rx Instructions: Good from 09/30/2022-10/01/2027 multivitamin,[id number] 1 TABLET tablet 0.5 tab PO BID Patient Comments: SUPPLEMENT warfarin 2 MG tablet 2 mg PO [facility] Patient Comments: blood thinner/bridging with lovenox simvastatin 20 MG tablet 20 mg PO QHS warfarin 1 MG tablet 1 mg PO MOWEFR spironolactone 25 mg tablet 25 mg PO DAILY Qty: 90 3RF furosemide 40 mg tablet 60 mg PO BID Qty: 270 3RF Primary Care Provider: Yuri Arteaga Referrals: Yuri Arteaga MD [Primary Care Provider] - 1 Week Activity Restrictions/Additional Instructions: 1. You will need to contact your doctor, Dr. Arteaga, to have repeat blood work to check your kidney function and possibly refer to a inoculator, kidney specialist Print Language: Setswana Disposition Disposition: Home, Self Care
[2024-01-01 14:54] LABS: Differential Indicated SCAN CRITERIA MET
[2024-01-01 14:55] LABS: Anion Gap 10 (5-15); BUN 80 mg/dL (7-18); BUN/Creat Ratio 29.6 RATIO (10-20); Calcium,Total 8.5 mg/dL (8.5-10.1); Chloride 104 mmol/L (98-107); EST Glomerular Filtration Rate 24 mL/min (>60); Est Glom Filt Rate - Afr Amer 29 mL/min (>60); Estimated Creatinine Clearance 20.76 ml/min; Glucose 175 mg/dL (74-106); Sodium Level 135 mmol/L (136-145)
[2024-01-01 15:00] VITALS: BP 115/44; PULSE 92; RESP 18; TEMP 36.4; O2SAT 98
[2024-01-01 15:33] VITALS: BP 121/52; PULSE 88; RESP 18; O2SAT 98
[2024-01-01 16:01] VITALS: BP 125/53; PULSE 84; RESP 16; TEMP 36.6; O2SAT 98
[2024-01-01 16:03] LABS: Differential Comment SCANNED
== END 2024-01-01 16:12 | disposition home or self-care (01) ==
PROVIDERS: Emergency Provider Emergency Medicine; PCP Family Medicine; Visit Provider Emergency Medicine
DX: U07.1 COVID-19 (principal); I50.32 Chronic diastolic (congestive) heart failure; I13.0 Hypertensive heart and chronic kidney disease with heart failure and stage 1 through stage 4 chronic kidney disease, or unspecified chronic kidney disease; I48.20 Chronic atrial fibrillation, unspecified; I25.10 Atherosclerotic heart disease of native coronary artery without angina pectoris; N18.2 Chronic kidney disease, stage 2 (mild); N17.9 Acute kidney failure, unspecified; E78.5 Hyperlipidemia, unspecified; Z79.899 Other long term (current) drug therapy; Z79.01 Long term (current) use of anticoagulants; Z86.73 Personal history of transient ischemic attack (TIA), and cerebral infarction without residual deficits
CPT/HCPCS: 99284; 71046; 80048; 85025; 87635; 93005; A4216

== ENCOUNTER 2024-01-04 12:19 | Inpatient (IN) | payer MEDICARE, SELFPAY ==
[2024-01-04] VITALS (9 sets, daily range): BP systolic 105–136; BP diastolic 54–78; PULSE 77–106; RESP 16–24; TEMP 36.2–36.8; O2SAT 97–100; BMI 21.4; BMI 25.9
--- NOTE | 2024-01-04 12:53 | EKG12_ITS ---
Test Reason : FATIGUE Blood Pressure : / mmHG Vent. Rate : 104 BPM Atrial Rate : 000 BPM P-R Int : 000 ms QRS Dur : 164 ms QT Int : 362 ms P-R-T Axes : 000 078 -63 degrees QTc Int : 476 ms Atrial fibrillation with rapid ventricular response Right bundle branch block T wave abnormality, consider inferolateral ischemia Abnormal ECG Confirmed by Adrien Shah ([id number]), supervising film or videotape editor TSERING CARMONA ([id number]) on 01/06/2024 2:02:20 PM Referred By: OC Confirmed By:Adrien Shah
--- NOTE | 2024-01-04 12:54 | EX.ED.DYSGE1 ---
HPI History of Present Illness Chief Complaint: Fatigue Narrative Narrative: 88-year-old male past medical history of atrial fibrillation, CHF, on Lasix presents with increasing shortness of breath, malaise, fatigue, and confusion according to his family. They state that he has been sick for a week before he was seen 3 days ago on December 31. He was at that time, he was diagnosed with COVID. Since his release from the emergency department, he has been sleeping a lot more, and he was reported to be confused. He complains of shortness of breath as well as malaise and fatigue. No fevers or chills, no nausea or vomiting. [facility] Medical History CVA (cerebral vascular accident) History of bicuspid aortic valve RBBB (right bundle branch block) Abdominal aortic aneurysm without rupture Thoracic aortic aneurysm without rupture Chronic diastolic heart failure Atherosclerotic heart disease of [place] coronary artery without angina pectoris Atrial flutter, chronic Essential hypertension Ataxia Inguinal hernia Atrial fibrillation and flutter TIA (transient ischemic attack) Hyperlipidemia Home Medications ?Medication ?Instructions ?Recorded ?Last Taken ?Type multivitamin,[id number]-itaj-gstrdpnn 27 0.5 tab PO BID supplement 02/15/14 07/17/20 History mg-0.4 mg tablet warfarin 2 mg tablet 2 mg PO SUTUTHSA blood thinner 05/06/17 07/16/20 History simvastatin 20 mg tablet 20 mg PO QHS cholesterol 07/17/20 07/16/20 History warfarin 1 mg tablet 1 mg PO MOWEFR blood thinner 07/17/20 07/14/20 History metoprolol tartrate 25 mg tablet 12.5 mg (1/2 x 25 mg) PO BID #180 08/14/22 Unknown Rx tabs Handicap Placard #1 ea 09/30/22 Unknown Rx spironolactone 25 mg tablet 25 mg PO DAILY diuretic #90 tabs 09/22/23 Unknown Rx furosemide 40 mg tablet 60 mg (1.5 x 40 mg) PO BID 12/22/23 Unknown Rx diuretic #270 tabs Allergy/AdvReac Type Severity Reaction Status Date / Time codeine Allergy Severe hives Verified 01/04/24 12:20 Family History Father Myocardial infarction, Onset Age: 82 Brother Heart disease Surgical History History of right and left heart catheterization (LHC) (~07/25/20) History of tonsillectomy History of inguinal hernia repair History of aortic valve replacement with bioprosthetic valve (~08/10/07) Social History Smoking Status: Never smoker alcohol intake: never substance use type: does not use caffeine: Yes Type: tea Number of servings: 6 ROS ROS ED ROS Narrative Constitutional: No fever, no chills. Positive generalized weakness. Positive fatigue, sleeping more. HEENT: No sore throat. No neck pain. No loss of vision. No rhinorrhea. Cardiovascular: No chest pain. No palpitations. No pedal edema. Respiratory: Positive cough, positive shortness of breath. Abdominal: No abdominal pain. No nausea. No vomiting. No diarrhea. Genitourinary: No dysuria. No hematuria. Musculoskeletal: No myalgias. No arthralgias. Neurologic: No headaches. No dizziness. No lightheadedness. Reported confusion. Skin: No rash. No change in color. Psychiatric: No depression. No anxiety. EXAM Physical Exam Narrative Exam Narrative: Afebrile. Vital signs noted. HEENT: Normocephalic. Atraumatic. PERRL, EOMI. Neck soft and supple. No point tenderness or step off. Cardiovascular: Regular rate and rhythm. No murmurs, rubs, or gallops appreciated. Respiratory: Positive tachypnea. Lungs clear to auscultation bilaterally. Gastrointestinal: Abdomen soft, nontender, with normoactive bowel sounds. No rebound or guarding. Neurological: Awake. Alert. Nonfocal, nonlateralizing. Skin: No rash. Normal color. No pallor. Musculoskeletal: Positive bilateral symmetric pedal edema. Full range of motion extremities. Const Vital Signs: 01/04/24 12:20 01/04/24 12:31 01/04/24 14:00 Temperature 97.5 F L 98.1 F Temperature Source Oral Temporal Pulse Rate 94 77 Respiratory Rate 22 H 18 Respiratory Effort Short of Breath Blood Pressure 105/63 111/78 Blood Pressure Mean 77 89 Pulse Ox 100 97 Oxygen Delivery Method Room Air Room Air 01/04/24 14:38 01/04/24 15:29 01/04/24 16:00 Temperature 97.8 F 98.3 F 97.8 F Temperature Source Axillary Temporal Pulse Rate 86 93 89 Respiratory Rate 24 H 24 H 19 H Respiratory Effort Blood Pressure 136/62 H 114/61 127/69 H Blood Pressure Mean 86 78 88 Pulse Ox 97 99 97 Oxygen Delivery Method Room Air Room Air MDM MDM MDM Narrative Medical decision making narrative: I had a lengthy discussion with the patient and his family, namely his and son. They were concerned that she has been unable to assist him as much as he may need. He is getting generally weaker since his diagnosis of COVID. I reviewed his laboratory work and previous ED visit. He did have elevated creatinine of 2.7. I will repeat chest x-ray to make sure the pneumonia has not developed or CHF. As he is on Lasix he may have an electrolyte imbalance such as hypokalemia. Will check his urine to help rule out infection. EKG was obtained and interpreted by myself independently as atrial fibrillation with rapid ventricular response at 104 bpm. I do consider this rate controlled as it is less than 120. There is no evidence of STEMI. There is no significant change from EKG dated January 01, 2024 except for rate was 79 at that time. I reviewed his laboratory work and he has an increased WBC count to 12.9, hemoglobin 12.9 and hematocrit 39.5, platelet count normal at 205. He takes Coumadin for atrial fibrillation and his INR is elevated at 6.5. He has no bleeding diathesis so I do not think he needs vitamin K for reversal. Sodium is low at 132, potassium slightly elevated at 5.4. No acute EKG changes were I think he needs calcium chloride. Review of his CMP also shows BUN elevated at 111 with creatinine now 3.90, up from a few days ago when it was around 2.5. I do feel that this is an acute kidney injury. Glucose is appropriately elevated at 151. While there may be some component of dehydration as well, he does have elevated liver enzymes with an AST of 152 and an ALT of 137. Alk phos is normal at 69. Of significance is his troponin elevated at 347. Concern would be for NSTEMI versus type II elevation because of his kidney failure. Patient is not having chest pain, but even with an NSTEMI, his INR is 6.5 so I am reluctant to give him heparin. BNP is elevated above 5000. It has been in the 1000's previously. Patient does take Lasix, but given his acute kidney injury I do not want to give him Lasix currently. Urinalysis shows 5-10 WBCs, I do not feel antibiotics are indicated. Chest x-ray in 1 view interpreted by myself independently shows chronic changes, I do not see florid CHF. I reviewed the radiology report which confirms my independent interpretation. At this point in time, given his COVID-positive status, acute on chronic kidney injury, elevated BNP and elevated troponin, I feel he requires admission. Patient will be discussed with the hospitalist. Patient discussed with Dr. Zamarripa. Disposition is admit. History & Record Review Discussion w/independent historian: Patient and Family Lab Data Attestation: I reviewed the patient's lab results. Labs: Laboratory Results - last 24 hr 01/04/24 01/04/24 13:39 14:00 WBC 12.9 H RBC 4.13 L Hgb 12.9 L Hct 39.5 L MCV 95.6 H MCH 31.2 MCHC 32.7 RDW Std Deviation 46.1 H RDW Coeff of Alfonso 13.5 Plt Count 205 MPV 12.3 H Immature Gran % (Auto) 0.500 Neut % (Auto) 80.5 H Lymph % (Auto) 7.1 L [place] % (Auto) 11.7 H Eos % (Auto) 0.0 Baso % (Auto) 0.2 Absolute Neuts (auto) 10.4 H Absolute Lymphs (auto) 0.91 Nucleated RBC % 0 PT 56.2 H INR 6.5 H* Sodium 132 L Potassium 5.4 H Chloride 98 Carbon Dioxide 18.0 L Anion Gap 16 H BUN 111 H* Creatinine 3.90 H Est GFR (MDRD) Af Amer 19 L Est GFR (MDRD) Non-Af 16 L BUN/Creatinine Ratio 28.5 H Glucose 151 H Calcium 9.5 Total Bilirubin 1.80 H AST 152 H ALT 137 H Alkaline Phosphatase 69 Troponin I High Sens 347 H* B-Natriuretic Peptide > 5000.0 H Total Protein 7.3 Albumin 4.1 Globulin 3.2 Albumin/Globulin Ratio 1.3 Urine Color Jessie Urine Clarity Clear Urine pH 5.0 Ur Specific [place] 1.030 Urine Protein 30 H Urine Glucose (UA) Normal Urine Ketones Negative Urine Occult Blood Negative Urine Nitrite Negative Urine Bilirubin 1 H Urine Urobilinogen 1 H Ur Leukocyte Esterase 25 H Urine RBC 0 SEEN Urine WBC 5-10 SEEN Ur Squamous Epith Cells 0 SEEN Urine Bacteria 1+ Hyaline Casts 50-100 SEEN Urine Mucus 0 SEEN Radiography Diagnostic Testing: Clinical Impression(s) from Imaging Studies Chest X-Ray 01/04/24 15:05 IMPRESSION: 1. Mild cardiomegaly. 2. No active pulmonary disease. Electronically Signed: Prasanna Harrington MD at 15:50 EDT , Management Discussion w/another healthcare provider: Hospitalist Discharge Plan Dx/Rx/DC Orders Clinical Impression: Fatigue, CHF (congestive heart failure), Acute kidney injury superimposed on stage 2 chronic kidney disease, Elevated troponin, COVID Disposition Disposition: Acute Care Hospital [facility]
[2024-01-04 13:47] LABS: Absolute Lymphocyte Count 0.91 X10^3/uL (0.83-4.51); Absolute Neutrophil Count 10.4 X10^3/uL (2.0-7.7); Basophil# 0.02 X10^3/uL; Basophil% 0.2 % (0-1); Hematocrit 39.5 % (40-54); Hemoglobin 12.9 g/dL (13.0-16.5); Lymphocyte # 0.91 X10^3/ul (0.83-4.51); Lymphocyte % 7.1 % (19-41); Mean Corp Hgb Conc 32.7 g/dL (32-36); Mean Corpuscular Hgb 31.2 pg (27.0-32.0); Mean Corpuscular Volume 95.6 fL (80-94); Mean Platelet Vol. 12.3 fl (6.2-12.0); Monocyte% 11.7 % (0-10); NRBC Flagged by Analyzer 0 % (0-5); Neutrophil # 10.37 X10^3/uL (2.7-7.7); Neutrophil % 80.5 % (47-70); Platelet Count 205 K/mm3 (150-450); RBC Distribution Width CV 13.5 % (11.6-14.6); RBC Distribution Width SD 46.1 fl (35.1-43.9); Red Blood Count 4.13 M/mm3 (4.6-6.2); White Blood Count 12.9 K/mm3 (4.4-11.0)
[2024-01-04 13:56] LABS: International Normalized Ratio 6.5; Prothrombin Time (Protime)PT. 56.2 SECONDS (11.7-14.9)
[2024-01-04 14:07] LABS: Mucous, Urine 0 SEEN /hpf (<or=2+); Red Blood Cells-Urine 0 SEEN /hpf (0-5); Squamous Epithelial Cells - UA 0 SEEN /hpf (0-5)
--- NOTE | 2024-01-04 14:09 | ED.RN ---
CRITICAL TROP OF 347, BUN OF 111. DR. RENAE INFORMED
[2024-01-04 14:10] LABS: ALB/GLOB Ratio 1.3 RATIO (0.9-2.4); AST(SGOT) 152 U/L (15-37); Alanine Aminotransfer ALT/SGPT 137 U/L (16-61); Albumin, Serum 4.1 g/dL (3.2-5.0); Alkaline Phosphatase 69 U/L (45-117); Anion Gap 16 (5-15); BUN 111 mg/dL (7-18); BUN/Creat Ratio 28.5 RATIO (10-20); Calcium,Total 9.5 mg/dL (8.5-10.1); Chloride 98 mmol/L (98-107); EST Glomerular Filtration Rate 16 mL/min (>60); Est Glom Filt Rate - Afr Amer 19 mL/min (>60); Globulin 3.2 g/dL (2.2-4.2); Glucose 151 mg/dL (74-106); Potassium 5.4 mmol/L (3.5-5.1); Protein, Total 7.3 g/dL (6.4-8.2); Sodium Level 132 mmol/L (136-145); Troponin-I HS 347 pg/mL (3.0-78.0)
[2024-01-04 14:11] LABS: Color, Urine Amber (Yellow); Glucose, Dipstick Normal (Normal); Ketone-Dipstick Negative (Negative); Leukocyte Esterase-Dipstick 25 /ul (Negative); Nitrite-Dipstick Negative (Negative); Occult Blood-Urine Negative /ul (Negative); Protein-Dipstick 30 mg/dl (Negative); Urine Clarity Clear (Clear); Urine Urobilinogen 1 mg/dl (Normal)
[2024-01-04 14:20] LABS: Urine Bilirubin Dipstick 1 mg/dL (Negative)
[2024-01-04 14:27] LABS: Bacteria 1+ /hpf (None Seen); Hyaline Cast 50-100 SEEN /lpf (0-5); White Blood Cells 5-10 SEEN /hpf (0-5)
[2024-01-04 14:29] LABS: BNP,B-Type NATRIURETIC PEPTIDE > 5000.0 pg/mL (0-100)
--- NOTE | 2024-01-04 15:05 | RAD_ITS ---
INDICATION: shortness of breath EXAMINATION/TECHNIQUE: X-RAY - XR Chest 1 View COMPARISON: Prior study dated: 01/01/2024. FINDINGS: LINES/DEVICES: None. LUNGS: No consolidation, edema or effusion. No pneumothorax. MEDIASTINUM AND CARDIOVASCULAR STRUCTURES: Mild enlargement of the cardiac silhouette. Status post median sternotomy and valve replacement. BONES AND SOFT TISSUES: Unremarkable. RAD/Chest 1 View (Portable) IMPRESSION: 1. Mild cardiomegaly. 2. No active pulmonary disease. Electronically Signed: Prasanna Harrington MD at 15:50 EDT ,
--- NOTE | 2024-01-04 16:55 | PCM.HP.STD ---
HPI - General General Date of Service: 01/04/24 Chief Complaint: Fatigue and weakness HPI Narrative LATONIA MEDINA, is a 88-year-old male history of CVA, CHF, A-fib, hypertension who presented to [facility] ED 01/23 with increasing shortness of breath, fatigue, confusion according to his family. He was sick for a week before he was seen 3 days ago in the ED and at that time he was diagnosed with COVID. Since released from the ED he has been sleeping more and has been more confused as well as short of breath. In the ED white blood cell count 12.9, INR of 6.5, sodium of 132 with potassium of 5.4, BUN of 111 with creatinine of 3.9, up from 2.7 3 days ago, anion gap of 16, troponin of 347 and BNP greater than 5000. In ED patient was vitally stable. Given the aforementioned hospitalist contacted for admission. Pt evaluated at bedside with family member present, patient fairly poor historian but family member reports he has just been weaker and more fatigued and confused over the past several days with poor p.o. intake, patient reports slight cough and a little bit of shortness of breath but feels he has been breathing harder, she is unsure if he has been taking his medications. Patient reports no change in urination, possibly some increased lower extremity swelling which happens intermittently. No chest pain, no fevers or chills at home. [facility] Medical History CVA (cerebral vascular accident) History of bicuspid aortic valve RBBB (right bundle branch block) Abdominal aortic aneurysm without rupture Thoracic aortic aneurysm without rupture Chronic diastolic heart failure Atherosclerotic heart disease of [place] coronary artery without angina pectoris Atrial flutter, chronic Essential hypertension Ataxia Inguinal hernia Atrial fibrillation and flutter TIA (transient ischemic attack) Hyperlipidemia Home Medications ?Medication ?Instructions ?Recorded ?Last Taken ?Type multivitamin,it-kxzu-elzfnaoa 27 0.5 tab PO BID supplement 02/15/14 07/17/20 History mg-0.4 mg tablet warfarin 2 mg tablet 2 mg PO SUTUTHSA blood thinner 05/06/17 07/16/20 History simvastatin 20 mg tablet 20 mg PO QHS cholesterol 07/17/20 07/16/20 History warfarin 1 mg tablet 1 mg PO MOWEFR blood thinner 07/17/20 07/14/20 History metoprolol tartrate 25 mg tablet 12.5 mg (1/2 x 25 mg) PO BID #180 08/14/22 Unknown Rx tabs Handicap Placard #1 ea 09/30/22 Unknown Rx spironolactone 25 mg tablet 25 mg PO DAILY diuretic #90 tabs 09/22/23 Unknown Rx furosemide 40 mg tablet 60 mg (1.5 x 40 mg) PO BID 12/22/23 Unknown Rx diuretic #270 tabs Allergy/AdvReac Type Severity Reaction Status Date / Time codeine Allergy Severe hives Verified 01/04/24 12:20 Family History Father Myocardial infarction, Onset Age: 82 Brother Heart disease Surgical History History of right and left heart catheterization (LHC) (~07/25/20) History of tonsillectomy History of inguinal hernia repair History of aortic valve replacement with bioprosthetic valve (~08/10/07) Social History Smoking Status: Never smoker alcohol intake: never substance use type: does not use caffeine: Yes Type: tea Number of servings: 6 ROS ROS Narrative General: Denies fever/chills, generalized weakness HENT: Denies headache, denies stuffy nose, denies sore throat EYES: Denies changes in vision Resp: Has been breathing somewhat heavier, slight cough Cardiac: Denies chest pain GI: Denies abdominal pain, denies changes in bowel, denies nausea/vomiting : Denies changes in urination Extremity: Possibly some lower extremity swelling MSK: Generalized weakness Neuro: Denies any numbness/tingling Heme: Denies any bleeding or bruising Skin: Denies rashes Psychiatric: Some confusion Vital Signs Vital Signs Vital Signs: 01/04/24 12:20 01/04/24 12:31 01/04/24 14:00 Temperature 97.5 F L 98.1 F Temperature Source Oral Temporal Pulse Rate 94 77 Respiratory Rate 22 H 18 Respiratory Effort Short of Breath Blood Pressure 105/63 111/78 Blood Pressure Mean 77 89 Pulse Ox 100 97 Oxygen Delivery Method Room Air Room Air 01/04/24 14:38 01/04/24 15:29 01/04/24 16:00 Temperature 97.8 F 98.3 F 97.8 F Temperature Source Axillary Temporal Pulse Rate 86 93 89 Respiratory Rate 24 H 24 H 19 H Respiratory Effort Blood Pressure 136/62 H 114/61 127/69 H Blood Pressure Mean 86 78 88 Pulse Ox 97 99 97 Oxygen Delivery Method Room Air Room Air Weight Weight: 71.5 kg Body Mass Index (BMI) 21.4 Physical Exam Narrative General: Alert, not acutely distressed HEENT: Atraumatic, normocephalic Eyes: Anicteric, normal conjunctiva, extraocular movements grossly intact Neck: Supple Respiratory: Somewhat diminished at the bases, no significant crackles or rhonchi, slight increased respiratory effort Cardiovascular: Irregularly irregular GI: Soft, nontender, nondistended Extremities: 1-2+ lower extremity edema Musculoskeletal: Moving all extremities Neuro: No overt focal neurological deficits Skin: No rashes appreciated Psych: Cooperative Results Lab / Micro Data 01/04/24 13:39 01/04/24 13:39 Labs: Laboratory Results - last 24 hr 01/04/24 13:39: WBC 12.9 H, RBC 4.13 L, Hgb 12.9 L, Hct 39.5 L, MCV 95.6 H, MCH 31.2, MCHC 32.7, RDW Std Deviation 46.1 H, RDW Coeff of Alfonso 13.5, Plt Count 205, MPV 12.3 H, Immature Gran % (Auto) 0.500, Neut % (Auto) 80.5 H, Lymph % (Auto) 7.1 L, [place] % (Auto) 11.7 H, Eos % (Auto) 0.0, Baso % (Auto) 0.2, Absolute Neuts (auto) 10.4 H, Absolute Lymphs (auto) 0.91, Nucleated RBC % 0, PT 56.2 H, INR 6.5 H*, Sodium 132 L, Potassium 5.4 H, Chloride 98, Carbon Dioxide 18.0 L, Anion Gap 16 H, BUN 111 H*, Creatinine 3.90 H, Est GFR (MDRD) Af Amer 19 L, Est GFR (MDRD) Non-Af 16 L, BUN/Creatinine Ratio 28.5 H, Glucose 151 H, Calcium 9.5, Total Bilirubin 1.80 H, AST 152 H, ALT 137 H, Alkaline Phosphatase 69, Troponin I High Sens 347 H*, B-Natriuretic Peptide > 5000.0 H, Total Protein 7.3, Albumin 4.1, Globulin 3.2, Albumin/Globulin Ratio 1.3 01/04/24 14:00: Urine Color Jessie, Urine Clarity Clear, Urine pH 5.0, Ur Specific [place] 1.030, Urine Protein 30 H, Urine Glucose (UA) Normal, Urine Ketones Negative, Urine Occult Blood Negative, Urine Nitrite Negative, Urine Bilirubin 1 H, Urine Urobilinogen 1 H, Ur Leukocyte Esterase 25 H, Urine RBC 0 SEEN, Urine WBC 5-10 SEEN, Ur Squamous Epith Cells 0 SEEN, Urine Bacteria 1+, Hyaline Casts 50-100 SEEN, Urine Mucus 0 SEEN Imaging Radiology Impression Chest X-Ray 01/04/24 15:05 IMPRESSION: 1. Mild cardiomegaly. 2. No active pulmonary disease. Electronically Signed: Prasanna Harrington MD at 15:50 EDT , Assessment & Plan Assessment/Plan (1) Acute kidney injury superimposed on stage 2 chronic kidney disease: (2) Atrial fibrillation: (3) COVID: (4) Elevated troponin: (5) Essential hypertension: (6) History of aortic valve replacement with bioprosthetic valve: (7) Chronic diastolic heart failure: PLAN: Plan # Acute kidney failure -3 months ago creatinine 1.57, on 12/31 it was 2.70 and today BUN 111 with creatinine 3.90 -Patient appears peripherally volume overloaded but intravascularly depleted -Kidney and bladder ultrasound -Will gently hydrate and carefully monitor volume status -Will consult nephrology given patient's tenuous cardiac and renal function #AMS suspect metabolic encephalopathy -2/2 uremia vs covid vs underlying superimposed infection # History of chronic heart failure with preserved ejection fraction -BNP greater than 5000 however exam and lab work more consistent with volume depletion than fluid overload and chest x-ray does not appear congested -Last echo 10/04/22 w/ EF 55%, pasp 26 and wall motion abnormalities -Daily weights -I's and O's -Holding diuretics given concern for intravascular volume depletion # High anion gap metabolic acidosis -Suspect secondary to significant uremia -Will check lactic acid however -Continue IVF # Elevated troponin -Initial troponin 347 -Suspect secondary to dehydration, BEAN, systemic illness, no chest pain -Will trend # COVID-19 -COVID precautions -O2 sat stable, patient reports he does not necessarily feel short of breath, breathing slightly fast appears may be due to acidosis -Not hypoxic, do not think additional COVID medications necessary -Incentive spirometer -Albuterol as needed # Hyponatremia and hyperkalemia -Possibly due to dehydration -IV fluids -Suspect potassium will improve with rehydration and improvement in kidney function # A-fib on Coumadin/supratherapeutic INR/Hx bioprosthetic AV valve -INR 6.5 -No evidence of bleeding -Hold Coumadin and trend INR -Continue metoprolol # Elevated liver function tests -Bili 1.8 with AST 152 and ALT 137 -No recent lab values for comparison -Trend, hold statin -If not improving consider upper quadrant ultrasound #GERD -Continue PPI #DVT ppx: INR supratherapeutic Elvi Zamarripa MD Time spent in the patient's overall evaluation,decision-making process, review of diagnostic data, adjustment of management, discussion with other providers, nursing nursing and ancillary staff involved in patient's care documentation, 57 minutes Charges/Coding Visit Charges Inpatient E&M: 62930 Init Hosp L2
--- NOTE | 2024-01-04 17:10 | NURSING ---
[facility] COVID, BEAN, HYPONATREMIA
[2024-01-04] MEDS: 0.9% Normal Saline (1000mL) 1,000 ML 50 ML IV (18:55)
[2024-01-04 19:30] LABS: Lactic Acid 3.2 mmol/L (0.4-1.9)
[2024-01-04 19:30] LABS: Troponin-I HS 337 pg/mL (3.0-78.0)
[2024-01-04] MEDS: Metoprolol Tartrate 25 MG Tablet 12.5 MG PO (20:15)
[2024-01-04 21:59] LABS: Reflex Lactate? Y
[2024-01-04 23:06] LABS: Lactic Acid 3.9 mmol/L (0.4-1.9)
[2024-01-05] VITALS (12 sets, daily range): BP systolic 99–128; BP diastolic 36–61; PULSE 81–113; RESP 20–28; TEMP 35.6–36.8; O2SAT 95–97; BMI 26.2
--- NOTE | 2024-01-05 06:00 | US_ITS ---
STUDY: RENAL ULTRASOUND - COMPLETE REASON FOR EXAM: Male, 88 years old. worsening kidney failure TECHNIQUE: Ultrasound evaluation of the kidneys was performed with real-time and static castañeda-scale imaging. COMPARISON: 12/30/2022. FINDINGS: Limited by patient condition. RIGHT KIDNEY: Normal location of the right kidney, which is normal in size. The right kidney measures 10.6 x 4.8 x 4.8 cm. There is a normal cortex of the right kidney. The renal cortex measures 1.3 cm. There is no right renal mass or cyst. There are no right renal calculi. There is no right hydronephrosis. DISTAL RIGHT URETER: There is non-visualization of the distal right ureter. There is no demonstrated right ureterovesical junction calculus. There is no demonstrated right ureteral jet. LEFT KIDNEY: Normal location of the left kidney, which is normal in size. The left kidney measures 10.1 x 4.7 x 4.9 cm. There is a normal cortex of the left kidney. The renal cortex measures 1.3 cm. There is no left renal mass or cyst. There are no left renal calculi. There is no left hydronephrosis. DISTAL LEFT URETER: There is non-visualization of the distal left ureter. There is no demonstrated left ureterovesical junction calculus. There is no demonstrated left ureteral jet. BLADDER: The distended urinary bladder has a volume of 113 ml. There is a normal wall thickness of the distended urinary bladder. However there however there is some trabeculation of the bladder wall. There is no demonstrated mass within the urinary bladder. There are no demonstrated bladder calculi. US/Kidney and Bladder IMPRESSION: Normal ultrasound of the kidneys. Trabeculation of the bladder wall suggests chronic bladder outlet obstruction. Electronically Signed: Buddy Acharya MD at 19:31 EDT ,
[2024-01-05 06:29] LABS: Absolute Lymphocyte Count 0.79 X10^3/uL (0.83-4.51); Absolute Neutrophil Count 12.2 X10^3/uL (2.0-7.7); Basophil# 0.03 X10^3/uL; Basophil% 0.2 % (0-1); Hematocrit 39.8 % (40-54); Lymphocyte # 0.79 X10^3/ul (0.83-4.51); Lymphocyte % 5.3 % (19-41); Mean Corp Hgb Conc 32.7 g/dL (32-36); Mean Corpuscular Hgb 31.1 pg (27.0-32.0); Mean Corpuscular Volume 95.2 fL (80-94); Monocyte# 1.67 X10^3/uL; Monocyte% 11.3 % (0-10); NRBC Flagged by Analyzer 0.2 % (0-5); Neutrophil # 12.17 X10^3/uL (2.7-7.7); Neutrophil % 82.3 % (47-70); POSITIVE DIFFERENTIAL YES; Platelet Count 197 K/mm3 (150-450); RBC Distribution Width CV 13.9 % (11.6-14.6); RBC Distribution Width SD 45.8 fl (35.1-43.9); Red Blood Count 4.18 M/mm3 (4.6-6.2); White Blood Count 14.8 K/mm3 (4.4-11.0)
[2024-01-05 06:33] LABS: Differential Indicated SCAN CRITERIA MET
[2024-01-05 06:38] LABS: Prothrombin Time (Protime)PT. 67.9 SECONDS (11.7-14.9)
[2024-01-05 07:20] LABS: ALB/GLOB Ratio 1.3 RATIO (0.9-2.4); AST(SGOT) 344 U/L (15-37); Alanine Aminotransfer ALT/SGPT 293 U/L (16-61); Albumin, Serum 3.8 g/dL (3.2-5.0); Alkaline Phosphatase 68 U/L (45-117); Anion Gap 18 (5-15); BUN 123 mg/dL (7-18); BUN/Creat Ratio 29.1 RATIO (10-20); Calcium,Total 9.2 mg/dL (8.5-10.1); Chloride 98 mmol/L (98-107); Creatinine, Serum 4.23 mg/dL (0.70-1.30); EST Glomerular Filtration Rate 14 mL/min (>60); Est Glom Filt Rate - Afr Amer 17 mL/min (>60); Estimated Creatinine Clearance 13.64 ml/min; Globulin 2.9 g/dL (2.2-4.2); Glucose 136 mg/dL (74-106); Magnesium 3.3 mg/dL (1.6-2.6); Potassium 5.6 mmol/L (3.5-5.1); Protein, Total 6.7 g/dL (6.4-8.2); Sodium Level 129 mmol/L (136-145)
[2024-01-05 07:25] LABS: International Normalized Ratio 8.3
--- NOTE | 2024-01-05 07:33 | PCM.PN.HOSP ---
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) Subjective Subjective Patient is an 88-year-old gentleman with recent diagnosis of COVID who was brought to the emergency department by the family with decreased oral intake and some confusion diagnosed with acute metabolic encephalopathy secondary to BEAN admitted to monitored bed for further management Objective Data Objective Data Vital Signs: Vital Signs Temp Pulse Resp BP Pulse Ox O2 Del Method 97.4 F L 81 20 H 108/51 L 97 Room Air 01/05/24 02:30 01/05/24 02:30 01/05/24 02:30 01/05/24 02:30 01/05/24 02:30 01/05/24 02:30 Oxygen Delivery Method Room Air Weight: 89.902 kg Body Mass Index (BMI) 26.2 Intake & Output: Intake and Output for Last 24 Hours 01/03/24 01/04/24 01/05/24 23:59 23:59 23:59 Intake Total 120 / 120 Output Total 300 / 300 Balance 120 / -80 -300 / -300 Lab / Micro Data 01/05/24 06:17 01/05/24 06:17 Labs: Laboratory Results - last 24 hr 01/04/24 13:39: WBC 12.9 H, RBC 4.13 L, Hgb 12.9 L, Hct 39.5 L, MCV 95.6 H, MCH 31.2, MCHC 32.7, RDW Std Deviation 46.1 H, RDW Coeff of Alfonso 13.5, Plt Count 205, MPV 12.3 H, Immature Gran % (Auto) 0.500, Neut % (Auto) 80.5 H, Lymph % (Auto) 7.1 L, [place] % (Auto) 11.7 H, Eos % (Auto) 0.0, Baso % (Auto) 0.2, Absolute Neuts (auto) 10.4 H, Absolute Lymphs (auto) 0.91, Nucleated RBC % 0, PT 56.2 H, INR 6.5 H*, Sodium 132 L, Potassium 5.4 H, Chloride 98, Carbon Dioxide 18.0 L, Anion Gap 16 H, BUN 111 H*, Creatinine 3.90 H, Est GFR (MDRD) Af Amer 19 L, Est GFR (MDRD) Non-Af 16 L, BUN/Creatinine Ratio 28.5 H, Glucose 151 H, Calcium 9.5, Total Bilirubin 1.80 H, AST 152 H, ALT 137 H, Alkaline Phosphatase 69, Troponin I High Sens 347 H*, B-Natriuretic Peptide > 5000.0 H, Total Protein 7.3, Albumin 4.1, Globulin 3.2, Albumin/Globulin Ratio 1.3 01/04/24 14:00: Urine Color Jessie, Urine Clarity Clear, Urine pH 5.0, Ur Specific [place] 1.030, Urine Protein 30 H, Urine Glucose (UA) Normal, Urine Ketones Negative, Urine Occult Blood Negative, Urine Nitrite Negative, Urine Bilirubin 1 H, Urine Urobilinogen 1 H, Ur Leukocyte Esterase 25 H, Urine RBC 0 SEEN, Urine WBC 5-10 SEEN, Ur Squamous Epith Cells 0 SEEN, Urine Bacteria 1+, Hyaline Casts 50-100 SEEN, Urine Mucus 0 SEEN 01/04/24 17:47: Lactic Acid 3.2 H* 01/04/24 18:23: Troponin I High Sens 337 H* 01/04/24 22:23: Lactic Acid 3.9 H* 01/05/24 06:17: WBC 14.8 H, RBC 4.18 L, Hgb 13.0, Hct 39.8 L, MCV 95.2 H, MCH 31.1, MCHC 32.7, RDW Std Deviation 45.8 H, RDW Coeff of Alfonso 13.9, Plt Count 197, MPV 13.0 H, Immature Gran % (Auto) 0.900, Neut % (Auto) 82.3 H, Lymph % (Auto) 5.3 L, [place] % (Auto) 11.3 H, Eos % (Auto) 0.0, Baso % (Auto) 0.2, Absolute Neuts (auto) 12.2 H, Absolute Lymphs (auto) 0.79 L, Nucleated RBC % 0.2, PT 67.9 H, INR 8.3 H*, Sodium 129 L, Potassium 5.6 H, Chloride 98, Carbon Dioxide 13.0 L, Anion Gap 18 H, BUN 123 H*, Creatinine 4.23 H, Estim Creat Clear Calc 13.64, Est GFR (MDRD) Af Amer 17 L, Est GFR (MDRD) Non-Af 14 L, BUN/Creatinine Ratio 29.1 H, Glucose 136 H, Calcium 9.2, Magnesium 3.3 H, Total Bilirubin 1.70 H, AST 344 H, ALT 293 H, Alkaline Phosphatase 68, Total Protein 6.7, Albumin 3.8, Globulin 2.9, Albumin/Globulin Ratio 1.3 Radiography Diagnostic Testing: Radiology Impression Chest X-Ray 01/04/24 15:05 IMPRESSION: 1. Mild cardiomegaly. 2. No active pulmonary disease. Electronically Signed: Prasanna Harrington MD at 15:50 EDT , Physical Exam Narrative GENERAL: Appears ill looking HEENT: Atraumatic; normocephalic EYES; Anicteric, Normal Conjunctiva NECK; supple, normal thyroid, RESPIRATORY: Diminished to auscultation CARDIOVASCULAR: Regular S1 S2, GI: soft, normoactive bowel sounds, : No Renal angle tenderness; EXTREMITIES: No edema, no clubbing, MUSCULOSKELETAL: no muscle wasting NEURO: Awake; no lateralizing signs. SKIN: No Rash PSYCH; Flat affect Assessment & Plan Assessment/Plan (1) Acute kidney injury superimposed on stage 2 chronic kidney disease: (2) COVID: (3) Elevated troponin: PLAN: Plan Patient is an 88-year-old gentleman with recent diagnosis of COVID who was brought to the emergency department by the family with decreased oral intake and some confusion diagnosed with acute metabolic encephalopathy secondary to BEAN admitted to monitored bed for further management 1. Acute metabolic encephalopathy ? Secondary to acute kidney injury. Patient has been admitted to monitored bed for treatment of the underlying etiology 2. Acute kidney injury ? Patient creatinine from 09/29/2022 was 1.57, was 2.7 on 01/01/2024 patient presented with creatinine of 3.9 and BUN of 111. Potential nephrotoxic medications held, bladder and kidney ultrasound ordered patient started on hydration with consultation placed to nephrology 3. COVID-19 -Patient placed under COVID precautions. Patient currently not hypoxic Decadron was therefore not started did institute conservative management including albuterol as needed as well as incentive spirometry 4.Sepsis secondary to acute cystitis ?Present on admission as evidenced by patient being tachycardic with elevated WBC count plaza presence of endorgan dysfunction lactic acidosis and renal failure. Source possibly urinary tract infection patient had abnormal urinalysis with pyuria and positive leukocyte esterases. Chest x-ray obtained did not show any evidence of infiltrate. Patient started on broad-spectrum antibiotic therapy response to treatment monitor with serial lactic acid levels 5. Hyperkalemia ? Secondary to patient impaired kidney function treatment initiated Kayexalate 6. Hyponatremia ? Suspected to be secondary to hypovolemic hyponatremia do expect improvement with fluid resuscitation 7. Paroxysmal A-fib ? Rate controlled patient is on systemic anticoagulation with Coumadin INR was supratherapeutic currently being held. INR target 2-3 8. History of valvular heart disease ? With bioprosthetic aortic valve replacement 9. Acute transaminitis ? Trending LFTs 10. Dyslipidemia -Patient is on simvastatin held on admission 11. GERD ? On PPI 12. DVT prophylaxis ? Patient is on Coumadin with a supratherapeutic INR no additional measures warranted Time spent in the patient's overall evaluation,decision-making process, review of diagnostic data, adjustment of management, discussion with other providers, nursing nursing and ancillary staff involved in patient's care documentation,52 minutes Charges/Coding Visit Charges Inpatient E&M: [id number] [place] [id number]
[2024-01-05 07:41] LABS: Differential Comment SCANNED
[2024-01-05 08:42] LABS: Base Excess -13 mmol/L (-2 to +2); Bicarbonate 11.9 mmol/L (22-26); Blood Gas Specimen Type ART; Mode Not entered; O2 Delivery Device Room Air; PO2 95 mmHG (75-100); SITE L Radial; SO2 98 % (95-99); Total Carbon Dioxide 12 mmol/L; pCO2 18.7 mmHg (35-45); pH 7.41 (7.35-7.45)
[2024-01-05] MEDS: Ceftriaxone 1 GM/50 ML BAG IV (09:35)
[2024-01-05] MEDS: Sodium Polystyrene Sulfonate 15 GM/60 ML UDC 30 GM PO (09:35)
[2024-01-05] MEDS: 0.9% Normal Saline (250mL Bag) 250 ML 999 ML IV (10:28)
--- NOTE | 2024-01-05 11:40 | PCM.CONS.R ---
Assessment & Plan Assessment/Plan (1) Acute kidney injury superimposed on stage 2 chronic kidney disease: PLAN: Acute kidney injury on CKD 3 in the setting of sepsis. Original insult is ischemia based on the presence of hyaline casts, elevated lactic acid and probably it is ATN. It is currently complicated by anion gap and non-anion gap metabolic acidosis and as a result hyperkalemia. He is LFTs elevated as well might have been contributing to renal ischemia. Plan Replace IV fluids with bicarb drip Volume expansion Avoid hypotension Avoid nephrotoxins Oral potassium restriction Might need dialysis HPI Consult Data Date of Consult: 01/05/24 HPI Narrative Reason for Consultation: Acute kidney injury HPI Narrative: LATONIA MEDINA, is a 88 M who presents to [facility] with, cold symptoms, failure to thrive, weakness, decreased oral p.o. intake for about 5 to 7 days prior to admission. He was positive for COVID. He has CKD 3 at baseline with creatinine ranging between 1.2 and 1.5. Son and at bedside, providing history, patient is unable. Day before yesterday, on the day of admission his creatinine 2.7 and on the rise. Urinalysis showed 1+ protein and too numerous to count hyaline casts. Uric acid is on the rise, being 3.5 on admission is up to 3.9. Blood pressure is better. LFTs are elevated. Bicarb on admission was 18, now down to 13, potassium is up to 5.6. He is hemodynamically stable. He is on room air. Has no edema by exam. No renal imaging is available at the moment. No IV contrast administration [facility] Medical History CVA (cerebral vascular accident) History of bicuspid aortic valve RBBB (right bundle branch block) Abdominal aortic aneurysm without rupture Thoracic aortic aneurysm without rupture Chronic diastolic heart failure Atherosclerotic heart disease of [place] coronary artery without angina pectoris Atrial flutter, chronic Essential hypertension Ataxia Inguinal hernia Atrial fibrillation and flutter TIA (transient ischemic attack) Hyperlipidemia Home Medications ?Medication ?Instructions ?Recorded ?Last Taken ?Type multivitamin,di-[id number] 27 0.5 tab PO BID supplement 02/15/14 07/17/20 History mg-0.4 mg tablet warfarin 2 mg tablet 2 mg PO SUTUTHSA blood thinner 05/06/17 07/16/20 History simvastatin 20 mg tablet 20 mg PO QHS cholesterol 07/17/20 07/16/20 History warfarin 1 mg tablet 1 mg PO MOWEFR blood thinner 07/17/20 07/14/20 History metoprolol tartrate 25 mg tablet 12.5 mg (1/2 x 25 mg) PO BID heart 08/14/22 Unknown Rx #180 tabs Handicap Placard #1 ea 09/30/22 Unknown Rx spironolactone 25 mg tablet 25 mg PO DAILY diuretic #90 tabs 09/22/23 Unknown Rx furosemide 40 mg tablet 60 mg (1.5 x 40 mg) PO BID 12/22/23 Unknown Rx diuretic #270 tabs Allergy/AdvReac Type Severity Reaction Status Date / Time codeine Allergy Severe hives Verified 01/04/24 12:20 Family History Father Myocardial infarction, Onset Age: 82 Brother Heart disease Surgical History History of right and left heart catheterization (LHC) (~07/25/20) History of tonsillectomy History of inguinal hernia repair History of aortic valve replacement with bioprosthetic valve (~08/10/07) Social History do you think of yourself as: straight/heterosexual Smoking Status: Never smoker alcohol intake: never substance use type: does not use caffeine: Yes Type: tea Number of servings: 6 ROS Review of Systems ROS Unobtainable: due to mental status Constitutional Constitutional: Reports malaise and weakness Cardiovascular Cardiovascular: Reports edema Physical Exam Const alert Orientation / Consciousness: oriented to person, oriented to place and confused HEENT normocephalic Head and Scalp: atraumatic Neck no lymphadenopathy Resp no use of accessory muscles and clear to auscultation bilaterally Cardio no rub Cardio Narrative: Irregularly irregular GI non-tender Auscultation: normoactive bowel sounds Palpation: soft Skin no rashes or lesions noted Psych Memory / Cognition: cognition impaired Medical Records Data Attestation: I reviewed the patient's medical records Lab / Micro Data Attestation: I reviewed the patient's lab results. 01/05/24 06:17 01/05/24 06:17 Labs: Laboratory Results - last 24 hr 01/04/24 13:39: WBC 12.9 H, RBC 4.13 L, Hgb 12.9 L, Hct 39.5 L, MCV 95.6 H, MCH 31.2, MCHC 32.7, RDW Std Deviation 46.1 H, RDW Coeff of Alfonso 13.5, Plt Count 205, MPV 12.3 H, Immature Gran % (Auto) 0.500, Neut % (Auto) 80.5 H, Lymph % (Auto) 7.1 L, [place] % (Auto) 11.7 H, Eos % (Auto) 0.0, Baso % (Auto) 0.2, Absolute Neuts (auto) 10.4 H, Absolute Lymphs (auto) 0.91, Nucleated RBC % 0, PT 56.2 H, INR 6.5 H*, Sodium 132 L, Potassium 5.4 H, Chloride 98, Carbon Dioxide 18.0 L, Anion Gap 16 H, BUN 111 H*, Creatinine 3.90 H, Est GFR (MDRD) Af Amer 19 L, Est GFR (MDRD) Non-Af 16 L, BUN/Creatinine Ratio 28.5 H, Glucose 151 H, Calcium 9.5, Total Bilirubin 1.80 H, AST 152 H, ALT 137 H, Alkaline Phosphatase 69, Troponin I High Sens 347 H*, B-Natriuretic Peptide > 5000.0 H, Total Protein 7.3, Albumin 4.1, Globulin 3.2, Albumin/Globulin Ratio 1.3 01/04/24 14:00: Urine Color Jessie, Urine Clarity Clear, Urine pH 5.0, Ur Specific [place] 1.030, Urine Protein 30 H, Urine Glucose (UA) Normal, Urine Ketones Negative, Urine Occult Blood Negative, Urine Nitrite Negative, Urine Bilirubin 1 H, Urine Urobilinogen 1 H, Ur Leukocyte Esterase 25 H, Urine RBC 0 SEEN, Urine WBC 5-10 SEEN, Ur Squamous Epith Cells 0 SEEN, Urine Bacteria 1+, Hyaline Casts 50-100 SEEN, Urine Mucus 0 SEEN 01/04/24 17:47: Lactic Acid 3.2 H* 01/04/24 18:23: Troponin I High Sens 337 H* 01/04/24 22:23: Lactic Acid 3.9 H* 01/05/24 06:17: WBC 14.8 H, RBC 4.18 L, Hgb 13.0, Hct 39.8 L, MCV 95.2 H, MCH 31.1, MCHC 32.7, RDW Std Deviation 45.8 H, RDW Coeff of Alfonso 13.9, Plt Count 197, MPV 13.0 H, Immature Gran % (Auto) 0.900, Neut % (Auto) 82.3 H, Lymph % (Auto) 5.3 L, [place] % (Auto) 11.3 H, Eos % (Auto) 0.0, Baso % (Auto) 0.2, Absolute Neuts (auto) 12.2 H, Absolute Lymphs (auto) 0.79 L, Nucleated RBC % 0.2, Differential Comment SCANNED, Diff Path Review September, PT 67.9 H, INR 8.3 H*, Sodium 129 L, Potassium 5.6 H, Chloride 98, Carbon Dioxide 13.0 L, Anion Gap 18 H, BUN 123 H*, Creatinine 4.23 H, Estim Creat Clear Calc 13.64, Est GFR (MDRD) Af Amer 17 L, Est GFR (MDRD) Non-Af 14 L, BUN/Creatinine Ratio 29.1 H, Glucose 136 H, Calcium 9.2, Magnesium 3.3 H, Total Bilirubin 1.70 H, AST 344 H, ALT 293 H, Alkaline Phosphatase 68, Total Protein 6.7, Albumin 3.8, Globulin 2.9, Albumin/Globulin Ratio 1.3 ABG Data ABG results: ABG 01/05/24 08:39 Specimen Type ART Sample Site L Radial pH 7.41 Bicarbonate Actual 11.9 L Total CO2 12 Base Excess -13 L O2 Saturation 98 ABG pCO2 18.7 L* ABG pO2 95 O2 Delivery Device Room Air Vent Mode Not entered Crit Call To/Read Back Yes Blood Gas Notified Whom dr arceo Blood Gas Notified Time 08:40:58 Attestation: I personally reviewed and interpreted this ABG as follows: Imaging Radiology Impression Chest X-Ray 01/04/24 15:05 IMPRESSION: 1. Mild cardiomegaly. 2. No active pulmonary disease. Electronically Signed: Prasanna Harrington MD at 15:50 EDT ,
[2024-01-05 13:46] LABS: Anion Gap 18 (5-15); BUN 125 mg/dL (7-18); Calcium,Total 8.6 mg/dL (8.5-10.1); Chloride 101 mmol/L (98-107); Creatinine, Serum 4.47 mg/dL (0.70-1.30); EST Glomerular Filtration Rate 13 mL/min (>60); Est Glom Filt Rate - Afr Amer 16 mL/min (>60); Estimated Creatinine Clearance 12.91 ml/min; Glucose 135 mg/dL (74-106); Potassium 5.5 mmol/L (3.5-5.1); Sodium Level 133 mmol/L (136-145)
[2024-01-05] MEDS: Sodium Bicarbonate 150 MEQ in Dextrose 5%-Water (1000mL Bag) 1,000 ML 100 MEQ IV (19:47)
[2024-01-05] MEDS: Metoprolol Tartrate 25 MG Tablet 12.5 MG PO (20:59)
[2024-01-06] VITALS (14 sets, daily range): BP systolic 81–130; BP diastolic 42–67; PULSE 77–104; RESP 16–24; TEMP 35.6–36.9; O2SAT 93–98; BMI 26.6
--- NOTE | 2024-01-06 06:41 | NURSING ---
bladder scanned @ 0600 d/t very low urine output (approx. 100 ml within approx. 11 hours); bladder scan showed 175 ml in bladder @ biggest volume noted. no s/s. discomfort.
[2024-01-06 07:07] LABS: Absolute Lymphocyte Count 0.63 X10^3/uL (0.83-4.51); Absolute Neutrophil Count 11.6 X10^3/uL (2.0-7.7); Basophil# 0.02 X10^3/uL; Basophil% 0.1 % (0-1); Hematocrit 39.4 % (40-54); Hemoglobin 13.2 g/dL (13.0-16.5); Lymphocyte # 0.63 X10^3/ul (0.83-4.51); Lymphocyte % 4.4 % (19-41); Mean Corp Hgb Conc 33.5 g/dL (32-36); Mean Corpuscular Hgb 31.7 pg (27.0-32.0); Mean Corpuscular Volume 94.7 fL (80-94); Mean Platelet Vol. 12.8 fl (6.2-12.0); Monocyte# 1.93 X10^3/uL; Monocyte% 13.5 % (0-10); NRBC Flagged by Analyzer 0.3 % (0-5); Neutrophil # 11.59 X10^3/uL (2.7-7.7); Neutrophil % 81.4 % (47-70); POSITIVE DIFFERENTIAL YES; Platelet Count 173 K/mm3 (150-450); RBC Distribution Width CV 14.5 % (11.6-14.6); RBC Distribution Width SD 45.8 fl (35.1-43.9); Red Blood Count 4.16 M/mm3 (4.6-6.2); White Blood Count 14.3 K/mm3 (4.4-11.0)
[2024-01-06 07:09] LABS: International Normalized Ratio 13.5; Prothrombin Time (Protime)PT. 99.4 SECONDS (11.7-14.9)
[2024-01-06 07:12] LABS: Differential Indicated SCAN CRITERIA MET
[2024-01-06 07:49] LABS: AST(SGOT) 1461 U/L (15-37); Alanine Aminotransfer ALT/SGPT 1114 U/L (16-61); Albumin, Serum 3.5 g/dL (3.2-5.0); Alkaline Phosphatase 64 U/L (45-117); Anion Gap 18 (5-15); BUN 134 mg/dL (7-18); Calcium,Total 8.2 mg/dL (8.5-10.1); Chloride 98 mmol/L (98-107); Creatinine, Serum 4.78 mg/dL (0.70-1.30); EST Glomerular Filtration Rate 12 mL/min (>60); Est Glom Filt Rate - Afr Amer 15 mL/min (>60); Estimated Creatinine Clearance 12.07 ml/min; Glucose 177 mg/dL (74-106); Magnesium 3.6 mg/dL (1.6-2.6); Phosphorus 8.5 mg/dL (2.5-4.9); Potassium 5.2 mmol/L (3.5-5.1); Protein, Total 6.5 g/dL (6.4-8.2); Sodium Level 132 mmol/L (136-145)
--- NOTE | 2024-01-06 08:16 | US_ITS ---
STUDY: ABDOMINAL ULTRASOUND - RIGHT UPPER QUADRANT REASON FOR VISIT: Male, 88 years old elevated liver enzymes TECHNIQUE: Ultrasound evaluation of the right upper quadrant was performed with real-time and static miner-scale imaging. TECHNICAL QUALITY: Limited. Examination limited due to the patient?s condition. COMPARISON: None. FINDINGS: Liver: The liver measures 16.9 cm. There is a heterogeneous echogenicity of the liver. The bile ducts are within normal limits. There is hepatic color flow. The direction of portal flow is hepatopetal. There is no demonstrated mass lesion. Gallbladder: Normal distended gallbladder. The gallbladder wall measures 3 mm. There is a negative sonographic Mcclellan''s sign. There is no pericholecystic fluid. There are no gallstones. Common Bile Duct (C.B.D.): The common bile duct measures 3 mm. Pancreas: There is nonvisualization of the pancreas. Right Kidney: Normal size of the right kidney. The right kidney measures 10.3 cm. Normal renal cortex. The right cortex measures 1.5 cm. There is no demonstrated renal mass or cyst. There is no right hydronephrosis. US/Liver IMPRESSION: Limited as above. No gross acute abnormality. Electronically Signed: Buddy Acharya MD at 16:08 EDT ,
[2024-01-06 08:19] LABS: Partial Thromboplast Time 46.6 Seconds (24.1-36.2)
[2024-01-06] MEDS: Sodium Bicarbonate 150 MEQ in Dextrose 5%-Water (1000mL Bag) 1,000 ML 100 MEQ IV ×2 (08:38→23:43)
[2024-01-06] MEDS: Metoprolol Tartrate 25 MG Tablet 12.5 MG PO ×2 (08:40→21:42)
[2024-01-06] MEDS: Sodium Polystyrene Sulfonate 15 GM/60 ML UDC 30 GM PO (08:41)
[2024-01-06] MEDS: Ceftriaxone 1 GM/50 ML BAG IV (08:42)
[2024-01-06 08:47] LABS: LDH 1308 U/L (87-241)
--- NOTE | 2024-01-06 10:50 | PCM.PN.REN ---
Subjective Subjective Patient is sleepy but alert, resting in bed, and son at bedside. No overnight events. Objective Data Objective Data Vital Signs: Vital Signs Temp Pulse Resp BP Pulse Ox O2 Del Method 97.3 F L 95 18 110/47 L 96 Room Air 01/06/24 09:53 01/06/24 09:53 01/06/24 09:53 01/06/24 09:53 01/06/24 09:53 01/06/24 09:53 Oxygen Delivery Method Room Air Weight: 91.6 kg Body Mass Index (BMI) 26.6 Intake & Output: Intake and Output for Last 24 Hours 01/04/24 01/05/24 01/06/24 23:59 23:59 23:59 Intake Total 120 / 120 1383.33 / 1533.33 1400 / 1400 Output Total 450 / 450 50 / 50 Balance 120 / -80 933.33 / 1083.33 1350 / 1350 Lab / Micro Data 01/06/24 06:41 01/06/24 06:41 Labs: Laboratory Results - last 24 hr 01/05/24 12:55: Sodium 133 L, Potassium 5.5 H, Chloride 101, Carbon Dioxide 14.0 L, Anion Gap 18 H, BUN 125 H*, Creatinine 4.47 H, Estim Creat Clear Calc 12.91, Est GFR (MDRD) Af Amer 16 L, Est GFR (MDRD) Non-Af 13 L, BUN/Creatinine Ratio 28.0 H, Glucose 135 H, Calcium 8.6 01/06/24 06:41: WBC 14.3 H, RBC 4.16 L, Hgb 13.2, Hct 39.4 L, MCV 94.7 H, MCH 31.7, MCHC 33.5, RDW Std Deviation 45.8 H, RDW Coeff of Alfonso 14.5, Plt Count 173, MPV 12.8 H, Immature Gran % (Auto) 0.600, Neut % (Auto) 81.4 H, Lymph % (Auto) 4.4 L, Kay % (Auto) 13.5 H, Eos % (Auto) 0.0, Baso % (Auto) 0.1, Absolute Neuts (auto) 11.6 H, Absolute Lymphs (auto) 0.63 L, Nucleated RBC % 0.3, Diff Path Review September, PT 99.4 H, INR 13.5 H*, APTT 46.6 H, Sodium 132 L, Potassium 5.2 H, Chloride 98, Carbon Dioxide 16.0 L, Anion Gap 18 H, BUN 134 H*, Creatinine 4.78 H, Estim Creat Clear Calc 12.07, Est GFR (MDRD) Af Amer 15 L, Est GFR (MDRD) Non-Af 12 L, BUN/Creatinine Ratio 28.0 H, Glucose 177 H, Calcium 8.2 L, Phosphorus 8.5 H, Magnesium 3.6 H, Total Bilirubin 1.70 H, Direct Bilirubin 0.70 H, AST 1461 H, ALT 1114 H, Alkaline Phosphatase 64, Lactate Dehydrogenase 1308 H, Total Protein 6.5, Albumin 3.5, Globulin 3.0 Radiography Diagnostic Testing: Radiology Impression Renal Ultrasound 01/05/24 06:00 IMPRESSION: Normal ultrasound of the kidneys. Trabeculation of the bladder wall suggests chronic bladder outlet obstruction. Electronically Signed: Buddy Acharya MD at 19:31 EDT , Physical Exam Narrative Alert and oriented, no apparent distress. Lethargy noted S1, S2, RRR Lung sounds clear Abdomen soft, nontender Nonpitting edema bilateral lower legs Assessment & Plan Assessment/Plan (1) Acute kidney injury superimposed on stage 2 chronic kidney disease: PLAN: - Acute kidney injury on CKD stage 3 in the setting of sepsis. Original insult is ischemia based on the presence of hyaline casts, elevated lactic acid and is likely ischemic ATN now. It is currently complicated by anion gap and non-anion gap metabolic acidosis and as a result hyperkalemia. Elevated LFTs may have contributed to renal ischemia. Renal US no hydro. UA 30 protein, no RBC. SCr 2.7 on admission --> SCr 4.47 yesterday and today SCr 4.78. Patient does have some urine output. Continue on IVF for volume expansion (patient has not been eating or drinking and is now currently NPO). Bicarb low, K+ slightly elevated but both have improved and will continue on bicarb drip. Patient does have some mild uremic symptoms but no acute need for DESIGN/ANIMATION INSTRUCTOR today. He does have some Urine output and recommend on strict I&O, will not place romo due to elevated INR. Had lengthy discussion with patient and his family this morning that patient may be heading towards needing DESIGN/ANIMATION INSTRUCTOR. Questions answered. There is no acute indication for DESIGN/ANIMATION INSTRUCTOR today but will have better idea over the next 24 to 48 hours. Also to note if patient needs DESIGN/ANIMATION INSTRUCTOR will need improvement in INR level before line placement. - CKD stage IIIa; baseline SCr ranging ~1.2-1.5mg/dL. Patient has been seen by Dr. Gary in [place] office setting. - hypotension; bps low but have improved. - elevated LFTs/ elevated lactate/ INR 13; GI consulted - +Covid infection; out of isolation.
--- NOTE | 2024-01-06 11:15 | CASEMGMT ---
SPENCER SCHROEDER Face to Face with patient for initial transition planning/care coordination assessment. RN ALEXANDRE introduced self and role at [facility]. Patient sitting in chair, alert and slightly confused, son at bedside. Son, Mic, willing to participate in assessment and is able to answer all questions appropriately. Care providers, pharmacy, and demographics verified. Lace: 12 Strata: 3 PCP: Jenni Specialists: Kasi, cardiology; Cookie, net development manager Preferred Pharmacy: [facility] Insurance: [place] Secure Prescription Benefit: yes Living Will/HPOA: yes, [facility] LNOK: , son Living Arrangements: Patient lives with in a 2 story home. Per son, patient was independent and able to ambulate stairs. Transportation: self, DME/HHC: Patient does not have any DME in the home. No previous HHC or SNF. RN CM discussed progress with therapy and possible need for SNF at discharge. Son agreeable to and will talk with patient's . CM to provide SNF list to son to review and provide preferences. Son states he has no further needs or concerns at this time. CM to follow for discharge planning needs that may arise. Disposition Plan: TBD, anticipate SNF pending acceptance and precert when medically ready Geraldine LOOMIS, RN, CM
[2024-01-06 11:57] LABS: Hepatitis B Surface Antibody Non-Reactive; Hepatitis B Surface Antigen Non-Reactive (Nonreactive); Hepatitis C Antibody Non-Reactive (Nonreactive)
--- NOTE | 2024-01-06 12:45 | CASEMGMT ---
Discharge Planning A list of SNF providers including quality and resource use data and consistent with the patient's preferred geographic region, medical needs, and insurance network was created in [employer] Guide.? This list was provided to the SW. Hailey Barajas Discharge Planning Asst.
[2024-01-06] MEDS: Phytonadione (Vit K) 5 MG in 0.9% Normal Saline (50mL Bag) 50 ML 150 MG IV (12:53)
[2024-01-06] MEDS: 0.9% Saline Lock 10 ML Syringe IV (13:08)
[2024-01-06 14:53] LABS: Pathologist Review Reviewed
[2024-01-06] MEDS: Lactulose 20 GM/30 ML UDC PO ×2 (15:03→21:42)
--- NOTE | 2024-01-06 15:35 | PN_ITS ---
Subjective Subjective Patient seen and examined. He was lying in bed. He was frail but had no active complaints. He denied any lightheadedness, dizziness, palpitation, nausea vomiting or any other symptoms. Liver enzymes have trended up, with AST/ALT up in the 1000s. Total bilirubin is 1.7 and INR is markedly elevated at 13.5 today. Objective Data Objective Data Vital Signs: Vital Signs Temp Pulse Resp BP Pulse Ox O2 Del Method 97.3 F L 95 18 110/47 L 93 Room Air 01/06/24 09:53 01/06/24 09:53 01/06/24 09:53 01/06/24 09:53 01/06/24 10:00 01/06/24 09:53 Oxygen Delivery Method Room Air Weight: 201 lb 15.095 oz Body Mass Index (BMI) 26.6 Intake & Output: Intake and Output for Last 24 Hours 01/04/24 01/05/24 01/06/24 23:59 23:59 23:59 Intake Total 120 / 120 1383.33 / 1533.33 1500.5 / 1500.5 Output Total 450 / 450 50 / 50 Balance 120 / -80 933.33 / 1083.33 1450.5 / 1450.5 Lab / Micro Data 01/06/24 06:41 01/06/24 06:41 Labs: Laboratory Results - last 24 hr 01/05/24 06:17: Diff Path Review Reviewed 01/06/24 06:41: WBC 14.3 H, RBC 4.16 L, Hgb 13.2, Hct 39.4 L, MCV 94.7 H, MCH 31.7, MCHC 33.5, RDW Std Deviation 45.8 H, RDW Coeff of Alfonso 14.5, Plt Count 173, MPV 12.8 H, Immature Gran % (Auto) 0.600, Neut % (Auto) 81.4 H, Lymph % (Auto) 4.4 L, [place] % (Auto) 13.5 H, Eos % (Auto) 0.0, Baso % (Auto) 0.1, Absolute Neuts (auto) 11.6 H, Absolute Lymphs (auto) 0.63 L, Nucleated RBC % 0.3, Diff Path Review September, PT 99.4 H, INR 13.5 H*, APTT 46.6 H, Sodium 132 L, Potassium 5.2 H, Chloride 98, Carbon Dioxide 16.0 L, Anion Gap 18 H, BUN 134 H*, C reatinine 4.78 H, Estim Creat Clear Calc 12.07, Est GFR (MDRD) Af Amer 15 L, Est GFR (MDRD) Non-Af 12 L, BUN/Creatinine Ratio 28.0 H, Glucose 177 H, Calcium 8.2 L, Phosphorus 8.5 H, Magnesium 3.6 H, Total Bilirubin 1.70 H, Direct Bilirubin 0.70 H, AST 1461 H, ALT 1114 H, Alkaline Phosphatase 64, Lactate Dehydrogenase 1308 H, Total Protein 6.5, Albumin 3.5, Globulin 3.0 01/06/24 10:11: Ammonia 81.0 H, Hep Bs Antigen Non-Reactive, Hep Bs Antibody Non-Reactive, Hepatitis C Antibody Non-Reactive Radiography Diagnostic Testing: Radiology Impression Renal Ultrasound 01/05/24 06:00 IMPRESSION: Normal ultrasound of the kidneys. Trabeculation of the bladder wall suggests chronic bladder outlet obstruction. Electronically Signed: Buddy Acharya MD at 19:31 EDT , Physical Exam Const Constitutional Narrative: frail and weak Orientation / Consciousness: lethargic HEENT normocephalic, head/scalp atraumatic, moist oral mucous membranes and oropharynx normal Eyes PERRL and EOMs intact bilaterally Neck no lymphadenopathy and supple Lymph Lymphatic: no lymphadenopathy noted and no lymphedema noted Resp normal respiratory effort, normal air movement and clear to auscultation bilaterally Cardio regular rate, regular rhythm, S1 normal heart sound, S2 normal heart sound and no murmurs GI normal to inspection, nondistended, normoactive bowel sounds, soft to palpation and non-tender GI Narrative: no right upper quadrant tenderness Extremity normal capillary refill, no clubbing, cyanosis or edema and no calf tenderness General Extremity: no tenderness to palpation of joints or extremities Skin Skin Narrative: no visible jaundice General Skin Exam: no breakdown Neuro CN's II-XII intact bilaterally Neuro Narrative: very frail, lethargic Motor Exam: general weakness Assessment & Plan Assessment/Plan (1) Atrial fibrillation: (2) Acute kidney injury superimposed on stage 2 chronic kidney disease: (3) Transaminitis: (4) Elevated INR: PLAN: Plan #Acute hepatic encephalopathy * Patient is lethargic today. Liver enzymes have trended up markedly with AST and ALT above 8000. Total bilirubin is 1.7. * Ammonia checked is elevated at 81. * Hepatitis panel ordered as well as liver ultrasound. * INR is also markedly elevated at 13.5. * Gastroenterology consulted in light of transaminitis. Patient started on lactulose 20 mg cc 3 times daily to titrate until 2-3 loose stools daily. * Hold all hepatotoxic medication. * Check Tylenol level * fibrinogen and LDH ordered and pending * #Acute transaminitis: As above * #BEAN: * Nephrology on board. * Cr today is 4.78. * Potassium today is 5.2. Given Kayexalate. * Will monitor creatinine and defer to nephrology about whether to initiate dialysis otherwise. #Anion gap metabolic acidosis: * Likely due to uremia from BEAN. * Bicarb is 16 and anion gap is 18. * Should improve as kidney function improves. * Nephrology on board and to decide whether to initiate patient on dialysis. * #COVID-19 infection * symptoms started on 12/25/2023, so patient taken out of precautions today * on room air * breathing treatment with bronchodilators. * #Hyperkalemia: potassium is 5.2 today. Will give kayexalate and trend #Hyponatremia: #Paroxysmal afib: coumadin on hold due to supratherapeutic iNR. Will monitor. On metoprolol #Hyperlipidemia: simvastatin on hold due to liver injury #GERD: on PPI DVT prophylaxis; not indicated due to supratherapeutic INR. Charges/Coding Visit Charges Inpatient E&M: 20988 [facility] Hosp L3
[2024-01-06 16:55] LABS: Prothrombin Time (Protime)PT. 75.2 SECONDS (11.7-14.9)
[2024-01-06 16:57] LABS: Acetaminophen (Tylenol) Level < 2.0 ug/mL (10.0-30.0)
[2024-01-06 17:01] LABS: International Normalized Ratio 9.4
--- NOTE | 2024-01-06 18:33 | NURSING ---
Reviewed and agreed on charting with Aleksandra White RN
[2024-01-06] MEDS: Menthol/Lanolin/Calamine/Znox 113 GM Tube 1 APPLIC TOPICAL (21:43)
[2024-01-07 03:30] VITALS: BP 119/52; PULSE 76; RESP 20; TEMP 35.6; O2SAT 96
[2024-01-07 04:31] VITALS: BMI 26.9
[2024-01-07] MEDS: Lactulose 20 GM/30 ML UDC PO ×3 (05:34→22:45)
[2024-01-07 06:10] LABS: Absolute Lymphocyte Count 0.65 X10^3/uL (0.83-4.51); Absolute Neutrophil Count 10.9 X10^3/uL (2.0-7.7); Basophil# 0.03 X10^3/uL; Basophil% 0.2 % (0-1); Hematocrit 39.1 % (40-54); Lymphocyte # 0.65 X10^3/ul (0.83-4.51); Lymphocyte % 4.9 % (19-41); Mean Corp Hgb Conc 33.2 g/dL (32-36); Mean Corpuscular Hgb 31.2 pg (27.0-32.0); Mean Corpuscular Volume 93.8 fL (80-94); Monocyte# 1.68 X10^3/uL; Monocyte% 12.6 % (0-10); NRBC Flagged by Analyzer 0.4 % (0-5); Neutrophil # 10.86 X10^3/uL (2.7-7.7); Neutrophil % 81.7 % (47-70); POSITIVE DIFFERENTIAL YES; Platelet Count 165 K/mm3 (150-450); RBC Distribution Width CV 15.1 % (11.6-14.6); RBC Distribution Width SD 45.1 fl (35.1-43.9); Red Blood Count 4.17 M/mm3 (4.6-6.2); White Blood Count 13.3 K/mm3 (4.4-11.0)
[2024-01-07 06:21] LABS: Differential Indicated SCAN CRITERIA MET; International Normalized Ratio 2.9; Prothrombin Time (Protime)PT. 30.4 SECONDS (11.7-14.9)
[2024-01-07 06:48] LABS: ALB/GLOB Ratio 1.3 RATIO (0.9-2.4); AST(SGOT) 954 U/L (15-37); Alanine Aminotransfer ALT/SGPT 1268 U/L (16-61); Albumin, Serum 3.5 g/dL (3.2-5.0); Alkaline Phosphatase 68 U/L (45-117); Anion Gap 16 (5-15); BUN 141 mg/dL (7-18); BUN/Creat Ratio 29.7 RATIO (10-20); Chloride 95 mmol/L (98-107); Creatinine, Serum 4.74 mg/dL (0.70-1.30); EST Glomerular Filtration Rate 12 mL/min (>60); Est Glom Filt Rate - Afr Amer 15 mL/min (>60); Estimated Creatinine Clearance 12.17 ml/min; Globulin 2.7 g/dL (2.2-4.2); Glucose 179 mg/dL (74-106); Potassium 3.1 mmol/L (3.5-5.1); Protein, Total 6.2 g/dL (6.4-8.2); Sodium Level 134 mmol/L (136-145)
[2024-01-07 07:08] LABS: Differential Comment SCANNED
--- NOTE | 2024-01-07 07:08 | EX.PCM.CON.G ---
HPI Consult Data Date of Consult: 01/07/24 HPI Narrative Reason for Consultation: Elevated liver enzymes HPI Narrative: LATONIA MEDINA, is a 88-year-old male history of CVA, CHF, A-fib, history of aortic valve replacement with bioprosthetic valve on Coumadin hypertension who presented to [facility] ED 01/23 with increasing shortness of breath, fatigue, confusion according to his family. He was sick for a week before he was seen 3 days ago in the ED and at that time he was diagnosed with COVID. Since released from the ED he has been sleeping more and has been more confused as well as short of breath. Most of the history is obtained from the chart because the patient is not a good historian. His white blood cell count 12.9, INR of 6.5, sodium of 132 with potassium of 5.4, BUN of 111 with creatinine of 3.9, up from 2.7 3 days ago, anion gap of 16, troponin of 347 and BNP greater than 5000. He was seen by nephrology and diagnosed with ischemic injury to the kidney. He is currently being seen by nephrology. I was asked to see this gentleman when his INR went up significantly higher and his LFTs started going up significantly higher.His initial laboratory workup was notable for AST 1461 U/L, ALT 1905 U/L, INR 13.4, and total bilirubin 1.7 mg/dL. Ammonia level was 81. At baseline, patient?s liver enzymes were normal. He was admitted to the PCU. . Alcohol, acetaminophen, salicylate levels and were all within normal limits. Viral hepatitis labs for acute hepatitis B/hepatitis C were negative . Abdominal ultrasound was negative for cirrhosis and ascites. He was given vitamin K for elevated INR and it is decreased down to 2.9. His liver enzymes has started to decrease with his bilirubin at 1.6, AST 954, ALT 1268 with normal alkaline phosphatase at 68. His BUN and creatinine has increased to 141/4.74. [facility]LY [facility] Medical History CVA (cerebral vascular accident) History of bicuspid aortic valve RBBB (right bundle branch block) Abdominal aortic aneurysm without rupture Thoracic aortic aneurysm without rupture Chronic diastolic heart failure Atherosclerotic heart disease of tribal coronary artery without angina pectoris Atrial flutter, chronic Essential hypertension Ataxia Inguinal hernia Atrial fibrillation and flutter TIA (transient ischemic attack) Hyperlipidemia Home Medications ?Medication ?Instructions ?Recorded ?Last Taken ?Type multivitamin,[id number] 27 0.5 tab PO BID supplement 02/15/14 07/17/20 History mg-0.4 mg tablet warfarin 2 mg tablet 2 mg PO SUTUTHSA blood thinner 05/06/17 07/16/20 History simvastatin 20 mg tablet 20 mg PO QHS cholesterol 07/17/20 07/16/20 History warfarin 1 mg tablet 1 mg PO MOWEFR blood thinner 07/17/20 07/14/20 History metoprolol tartrate 25 mg tablet 12.5 mg (1/2 x 25 mg) PO BID heart 08/14/22 Unknown Rx #180 tabs Handicap Placard #1 ea 09/30/22 Unknown Rx spironolactone 25 mg tablet 25 mg PO DAILY diuretic #90 tabs 09/22/23 Unknown Rx furosemide 40 mg tablet 60 mg (1.5 x 40 mg) PO BID 12/22/23 Unknown Rx diuretic #270 tabs Allergy/AdvReac Type Severity Reaction Status Date / Time codeine Allergy Severe hives Verified 01/04/24 12:20 Family History Father Myocardial infarction, Onset Age: 82 Brother Heart disease Surgical History History of right and left heart catheterization (LHC) (~07/25/20) History of tonsillectomy History of inguinal hernia repair History of aortic valve replacement with bioprosthetic valve (~08/10/07) Social History Smoking Status: Never smoker alcohol intake: never substance use type: does not use caffeine: Yes Type: tea Number of servings: 6 ROS ROS Narrative General: Denies fever/chills, generalized weakness HENT: Denies headache, denies stuffy nose, denies sore throat EYES: Denies changes in vision Resp: Has been breathing somewhat heavier, slight cough Cardiac: Denies chest pain GI: Denies abdominal pain, denies changes in bowel, denies nausea/vomiting : Denies changes in urination Extremity: Possibly some lower extremity swelling MSK: Generalized weakness Neuro: Denies any numbness/tingling Heme: Denies any bleeding or bruising Skin: Denies rashes Psychiatric: Some confusion Physical Exam Const Constitutional Narrative: frail and weak Orientation / Consciousness: lethargic HEENT normocephalic, head/scalp atraumatic, moist oral mucous membranes and oropharynx normal Eyes PERRL and EOMs intact bilaterally Neck no lymphadenopathy and supple Lymph Lymphatic: no lymphadenopathy noted and no lymphedema noted Resp normal respiratory effort, normal air movement and clear to auscultation bilaterally Cardio regular rate, regular rhythm, S1 normal heart sound, S2 normal heart sound and no murmurs GI normal to inspection, nondistended, normoactive bowel sounds, soft to palpation and non-tender GI Narrative: no right upper quadrant tenderness Extremity normal capillary refill, no clubbing, cyanosis or edema and no calf tenderness General Extremity: no tenderness to palpation of joints or extremities Skin Skin Narrative: no visible jaundice General Skin Exam: no breakdown Neuro CN's II-XII intact bilaterally Neuro Narrative: very frail, lethargic Motor Exam: general weakness Lab / Micro Data 01/07/24 05:55 01/07/24 05:55 Labs: Laboratory Results - last 24 hr 01/05/24 06:17: Diff Path Review Reviewed 01/06/24 06:41: WBC 14.3 H, RBC 4.16 L, Hgb 13.2, Hct 39.4 L, MCV 94.7 H, MCH 31.7, MCHC 33.5, RDW Std Deviation 45.8 H, RDW Coeff of Alfonso 14.5, Plt Count 173, MPV 12.8 H, Immature Gran % (Auto) 0.600, Neut % (Auto) 81.4 H, Lymph % (Auto) 4.4 L, [place] % (Auto) 13.5 H, Eos % (Auto) 0.0, Baso % (Auto) 0.1, Absolute Neuts (auto) 11.6 H, Absolute Lymphs (auto) 0.63 L, Nucleated RBC % 0.3, Diff Path Review September, PT 99.4 H, INR 13.5 H*, APTT 46.6 H, Sodium 132 L, Potassium 5.2 H, Chloride 98, Carbon Dioxide 16.0 L, Anion Gap 18 H, BUN 134 H*, Creatinine 4.78 H, Estim Creat Clear Calc 12.07, Est GFR (MDRD) Af Amer 15 L, Est GFR (MDRD) Non-Af 12 L, BUN/Creatinine Ratio 28.0 H, Glucose 177 H, Calcium 8.2 L, Phosphorus 8.5 H, Magnesium 3.6 H, Total Bilirubin 1.70 H, Direct Bilirubin 0.70 H, AST 1461 H, ALT 1114 H, Alkaline Phosphatase 64, Lactate Dehydrogenase 1308 H, Total Protein 6.5, Albumin 3.5, Globulin 3.0 01/06/24 10:11: Ammonia 81.0 H, Hep Bs Antigen Non-Reactive, Hep Bs Antibody Non-Reactive, Hepatitis C Antibody Non-Reactive 01/06/24 16:26: PT 75.2 H, INR 9.4 H*, Acetaminophen < 2.0 L 01/07/24 05:55: WBC 13.3 H, RBC 4.17 L, Hgb 13.0, Hct 39.1 L, MCV 93.8, MCH 31.2, MCHC 33.2, RDW Std Deviation 45.1 H, RDW Coeff of Alfonso 15.1 H, Plt Count 165, MPV 13.0 H, Immature Gran % (Auto) 0.600, Neut % (Auto) 81.7 H, Lymph % (Auto) 4.9 L, [place] % (Auto) 12.6 H, Eos % (Auto) 0.0, Baso % (Auto) 0.2, Absolute Neuts (auto) 10.9 H, Absolute Lymphs (auto) 0.65 L, Nucleated RBC % 0.4, Differential Comment SCANNED, Diff Path Review September, PT 30.4 H, INR 2.9, Sodium 134 L, Potassium 3.1 L, Chloride 95 L, Carbon Dioxide 23.0, Anion Gap 16 H, BUN 141 H*, Creatinine 4.74 H, Estim Creat Clear Calc 12.17, Est GFR (MDRD) Af Amer 15 L, Est GFR (MDRD) Non-Af 12 L, BUN/Creatinine Ratio 29.7 H, Glucose 179 H, Calcium 8.0 L, Total Bilirubin 1.60 H, AST 954 H, ALT 1268 H, Alkaline Phosphatase 68, Total Protein 6.2 L, Albumin 3.5, Globulin 2.7, Albumin/Globulin Ratio 1.3 Imaging Radiology Impression Liver Ultrasound 01/06/24 08:16 IMPRESSION: Limited as above. No gross acute abnormality. Electronically Signed: Buddy Acharya MD at 16:08 EDT , Assessment & Plan Assessment/Plan (1) Elevated INR: (2) Transaminitis: PLAN: Plan 81-year-old gentleman with multiple comorbidities including CHF, atrial fibrillation, right bundle branch block, aortic aneurysm, aortic valve replacement on Coumadin presents with fatigue, lethargy and recent COVID infection. He was discovered to have metabolic encephalopathy likely multifactorial from severe uremia and acute liver injury. Elevated liver enzymes-this is following the pattern of ischemic hepatitis. It is likely multifactorial. Ischemic hepatitis results from insufficient blood flow volume and/or oxygen content to the hepatocytes. Acute hypoxic respiratory failure as a result of COVID-19 infection is one of the potential causes of this type of liver injury. Other possible causes of liver injury include direct viral cytopathic effect, cytokinesis and drug-induced liver injury. Other things need to be ruled out such as autoimmune hepatitis, acute hepatitis A. 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 I would DC acetaminophen and give him an acetylcysteine for ischemic hepatitis. I do not think he needs a liver biopsy as his INR did not correct appropriately and he did have some improvement in his LFTs and liver function with a decrease slightly and his INR. There can be a second peak therefore I think he would benefit from N-acetylcysteine. If things change then he would need a liver biopsy to look for necrosis. Charges/Coding Visit Charges Inpatient E&M: 46190 Init Hosp L3
--- NOTE | 2024-01-07 08:19 | NURSING ---
pt. noted to cough throughout shift when given liquids by mouth. Pt. appeared to clear airway each time and lungs without adventitious breath sounds. This nurse has concerns for pt. being at risk for aspiration. Dr. Polk ordered speech consult following being made aware of this nurse's findings.
[2024-01-07 09:30] VITALS: BP 119/50; PULSE 76; RESP 16; TEMP 36.3; O2SAT 96
[2024-01-07] MEDS: Potassium Chloride Oral Tablet 20 MEQ 40 MEQ PO (09:51)
[2024-01-07] MEDS: Menthol/Lanolin/Calamine/Znox 113 GM Tube 1 APPLIC TOPICAL ×2 (09:51→22:46)
[2024-01-07 09:52] VITALS: PULSE 76
[2024-01-07] MEDS: Metoprolol Tartrate 25 MG Tablet 12.5 MG PO ×2 (09:52→22:45)
[2024-01-07] MEDS: Ceftriaxone 1 GM/50 ML BAG IV (09:53)
[2024-01-07] MEDS: ACETYLCYSTEINE IV ×2 (11:01→12:10)
[2024-01-07] MEDS: DEXTROSE 5% IV ×2 (11:01→12:10)
[2024-01-07] MEDS: WATER IV ×2 (11:01→12:10)
--- NOTE | 2024-01-07 11:20 | CASEMGMT ---
SPENCER CM in to discuss discharge planning with and son, patient resting. RN ALEXANDRE provided SNF list to family and discussed SNF process. agreeable to SNF placement at discharge. reviewed list and states first choice is [facility]CU and 2nd is [facility]. and son had no further question or concerns. RN CM updated SW regarding preferences. CM will continue to follow this patient and plan for safe discharge.
--- NOTE | 2024-01-07 11:52 | PN_ITS ---
Subjective Subjective Patient seen and examined. He remains frail and lethargic. He had no active complaints. Review of systems is otherwise negative. He was started on N acetyl cysteine by GI yesterday. His liver enzymes are trending downwards. INR is down to 2.9 today. Creatinine is 4.74and potassium is 3.1. Liver ultrasound was normal. Objective Data Objective Data Vital Signs: Vital Signs Temp Pulse Resp BP Pulse Ox O2 Del Method 97.4 F L 76 16 119/50 L 96 Room Air 01/07/24 09:30 01/07/24 09:52 01/07/24 09:30 01/07/24 09:30 01/07/24 09:30 01/07/24 09:30 Oxygen Delivery Method Room Air Weight: 204 lb 2.369 oz Body Mass Index (BMI) 26.9 Intake & Output: Intake and Output for Last 24 Hours 01/05/24 01/06/24 01/07/24 23:59 23:59 23:59 Intake Total 1383.33 / 1533.33 2900.5 / 2975.5 1238.33 / 1238.33 Output Total 450 / 450 50 / 50 160 / 160 Balance 933.33 / 1083.33 2850.5 / 2925.5 1078.33 / 1078.33 Lab / Micro Data 01/07/24 05:55 01/07/24 05:55 Labs: Laboratory Results - last 24 hr 01/05/24 06:17: Diff Path Review Reviewed 01/06/24 10:11: Hep Bs Antigen Non-Reactive, Hep Bs Antibody Non-Reactive, Hepatitis C Antibody Non-Reactive 01/06/24 16:26: PT 75.2 H, INR 9.4 H*, Acetaminophen < 2.0 L 01/07/24 05:55: WBC 13.3 H, RBC 4.17 L, Hgb 13.0, Hct 39.1 L, MCV 93.8, MCH 31.2, MCHC 33.2, RDW Std Deviation 45.1 H, RDW Coeff of Alfonso 15.1 H, Plt Count 165, MPV 13.0 H, Immature Gran % (Auto) 0.600, Neut % (Auto) 81.7 H, Lymph % (Auto) 4.9 L, [place] % (Auto) 12.6 H, Eos % (Auto) 0.0, Baso % (Auto) 0.2, A bsolute Neuts (auto) 10.9 H, Absolute Lymphs (auto) 0.65 L, Nucleated RBC % 0.4, Differential Comment SCANNED, Diff Path Review September foll, PT 30.4 H, INR 2.9, S odium 134 L, Potassium 3.1 L, Chloride 95 L, Carbon Dioxide 23.0, Anion Gap 16 H , BUN 141 H*, Creatinine 4.74 H, Estim Creat Clear Calc 12.17, Est GFR (MDRD) Af Amer 15 L, Est GFR (MDRD) Non-Af 12 L, BUN/Creatinine Ratio 29.7 H, Glucose 179 H, Calcium 8.0 L, Total Bilirubin 1.60 H, AST 954 H, ALT 1268 H, Alkaline Phosphatase 68, Total Protein 6.2 L, Albumin 3.5, Globulin 2.7, Albumin/Globulin Ratio 1.3 01/07/24 08:10: Ammonia 60.0 H Radiography Diagnostic Testing: Radiology Impression Liver Ultrasound 01/06/24 08:16 IMPRESSION: Limited as above. No gross acute abnormality. Electronically Signed: Buddy Acharya MD at 16:08 EDT , Physical Exam Const alert Constitutional Narrative: frail and weak Orientation / Consciousness: lethargic HEENT normocephalic, head/scalp atraumatic, moist oral mucous membranes and oropharynx normal Eyes PERRL and EOMs intact bilaterally Neck no lymphadenopathy and supple Lymph Lymphatic: no lymphadenopathy noted and no lymphedema noted Resp normal respiratory effort, normal air movement and clear to auscultation bilaterally Cardio regular rate, regular rhythm, S1 normal heart sound, S2 normal heart sound and no murmurs GI normal to inspection, nondistended, normoactive bowel sounds, soft to palpation and non-tender Extremity normal capillary refill, no clubbing, cyanosis or edema and no calf tenderness General Extremity: no tenderness to palpation of joints or extremities Skin Skin Narrative: no visible jaundice General Skin Exam: no breakdown Neuro CN's II-XII intact bilaterally Neuro Narrative: very frail, lethargic Motor Exam: general weakness Psych Mood & Affect: flat affect Assessment & Plan Assessment/Plan (1) Atrial fibrillation: (2) Acute kidney injury superimposed on stage 2 chronic kidney disease: (3) Transaminitis: (4) Elevated INR: PLAN: Plan #Acute hepatic encephalopathy * Patient is remains lethargic today. Liver enzymes have started to trend downwards. * hepatitis panel was negative, and total bilirubin has also trended down to 1.6. INR is down to 2.9. Ammonia level today is down to 60. * Ammonia checked is elevated at 81. * continue lactulose * GI on board; patient started on N acetyl cysteine * acetaminophen level was not elevated. * Hold all hepatotoxic medication. * #Acute transaminitis: As above #Supratherapeutic INR: INR was 13.5 yesterday. Received IV vitamin K 5mg x 1. INR is down to 2.9 today. * #BEAN: * Nephrology on board. * Cr today is 4.74. * Will monitor creatinine and defer to nephrology about whether to initiate dialysis otherwise. #Anion gap metabolic acidosis: * Likely due to uremia from BEAN. * Bicarb is 23 today; patient on bicarb drip per nephrology. Anion gap is 16. * Should improve as kidney function improves. * Nephrology on board and to decide whether to initiate patient on dialysis. * #COVID-19 infection * symptoms started on 12/25/2023, so patient taken out of precautions on 01/06/2024 * on room air * breathing treatment with bronchodilators. * #Hyperkalemia: resolved #Paroxysmal afib: coumadin on hold due to supratherapeutic iNR. Will monitor. On metoprolol #Hyperlipidemia: simvastatin on hold due to liver injury #GERD: on PPI DVT prophylaxis; not indicated due to supratherapeutic INR. Charges/Coding Visit Charges Inpatient E&M: 54848 Subs Hosp L3
[2024-01-07] MEDS: 0.9% Saline Lock 10 ML Syringe IV (12:11)
--- NOTE | 2024-01-07 12:57 | CASEMGMT ---
SW was informed of patient's family's choices for SNF. [facility]CU and [facility] ([facility]). SW will hold off on making referral to TCU as Siobhan will want patient to be closer to being medically ready for discharge. Also, there has been mention of possible dialysis if patient does not improve. TCU would then not be an option. Dahlia Ramesh NATIONAL SALES REPRESENTATIVE CINDY
[2024-01-07 13:34] LABS: Pathologist Review Reviewed
[2024-01-07 13:37] LABS: Pathologist Review Reviewed
[2024-01-07 14:57] VITALS: BP 119/45; PULSE 84; RESP 16; TEMP 36.4; O2SAT 96
--- NOTE | 2024-01-07 15:41 | PN.RENAL_ITS ---
Subjective Subjective Follow-up on acute kidney injury secondary to ATN. He is still not eating very well, he is tired and fatigued, wakes up when stimulated Objective Data Objective Data Vital Signs: Vital Signs Temp Pulse Resp BP Pulse Ox O2 Del Method 97.5 F L 84 16 119/45 L 96 Room Air 01/07/24 14:57 01/07/24 14:57 01/07/24 14:57 01/07/24 14:57 01/07/24 14:57 01/07/24 14:57 Oxygen Delivery Method Room Air Weight: 92.6 kg Body Mass Index (BMI) 26.9 Intake & Output: Intake and Output for Last 24 Hours 01/05/24 01/06/24 01/07/24 23:59 23:59 23:59 Intake Total 1383.33 / 1533.33 2900.5 / 2975.5 1507.78 / 1507.78 Output Total 450 / 450 50 / 50 160 / 160 Balance 933.33 / 1083.33 2850.5 / 2925.5 1347.78 / 1347.78 Lab / Micro Data Attestation: I reviewed the patient's lab results. 01/07/24 05:55 01/07/24 05:55 Labs: Laboratory Results - last 24 hr 01/06/24 06:41: Diff Path Review Reviewed 01/06/24 16:26: PT 75.2 H, INR 9.4 H*, Acetaminophen < 2.0 L 01/07/24 05:55: WBC 13.3 H, RBC 4.17 L, Hgb 13.0, Hct 39.1 L, MCV 93.8, MCH 31.2, MCHC 33.2, RDW Std Deviation 45.1 H, RDW Coeff of Alfonso 15.1 H, Plt Count 165, MPV 13.0 H, Immature Gran % (Auto) 0.600, Neut % (Auto) 81.7 H, Lymph % (Auto) 4.9 L, [place] % (Auto) 12.6 H, Eos % (Auto) 0.0, Baso % (Auto) 0.2, A bsolute Neuts (auto) 10.9 H, Absolute Lymphs (auto) 0.65 L, Nucleated RBC % 0.4, Differential Comment SCANNED, Diff Path Review Reviewed, PT 30.4 H, INR 2.9, S odium 134 L, Potassium 3.1 L, Chloride 95 L, Carbon Dioxide 23.0, Anion Gap 16 H , BUN 141 H*, Creatinine 4.74 H, Estim Creat Clear Calc 12.17, Est GFR (MDRD) Af Amer 15 L, Est GFR (MDRD) Non-Af 12 L, BUN/Creatinine Ratio 29.7 H, Glucose 179 H, Calcium 8.0 L, Total Bilirubin 1.60 H, AST 954 H, ALT 1268 H, Alkaline Phosphatase 68, Total Protein 6.2 L, Albumin 3.5, Globulin 2.7, Albumin/Globulin Ratio 1.3 01/07/24 08:10: Ammonia 60.0 H Radiography Diagnostic Testing: Radiology Impression Liver Ultrasound 01/06/24 08:16 IMPRESSION: Limited as above. No gross acute abnormality. Electronically Signed: Buddy Acharya MD at 16:08 EDT , Physical Exam Const no apparent distress and average body habitus General Appearance: well developed Orientation / Consciousness: lethargic Nutritional Appearance: cachectic HEENT Mouth: dry mucous membranes Neck no lymphadenopathy Resp no use of accessory muscles Cardio no rub GI non-tender Auscultation: normoactive bowel sounds Palpation: soft Skin no rashes or lesions noted Neuro Sensorium / Orientation: lethargic Psych Memory / Cognition: cognition impaired Assessment & Plan Assessment/Plan (1) Acute kidney injury superimposed on stage 2 chronic kidney disease: PLAN: Acute kidney injury in the setting of renal hypoperfusion due to active COVID infection, liver impairment, dehydration. Creatinine seems to have reached a plateau and acidosis improved significantly with IV bicarb drip, but BUN continues to go up. He probably is still quite prerenal as well. While he does not need dialysis at the moment I would like to continue with volume expansion and I will add LR as it has potassium in it.
[2024-01-07] MEDS: Lactated Ringers 1,000 ML 125 ML IV (17:50)
[2024-01-07 21:00] VITALS: BP 128/49; PULSE 83; RESP 20; TEMP 35.5; O2SAT 93
[2024-01-07 22:45] VITALS: BP 128/49; PULSE 83
[2024-01-08] MEDS: Lactated Ringers 1,000 ML 125 ML IV ×2 (01:56→17:32)
--- NOTE | 2024-01-08 02:09 | PCM.HOSP.N ---
Hospitalist Note Patient with abdominal distention, recent attempts for BP, requesting simethicone which was added. Will also request AM KUB to be cautious.
[2024-01-08] MEDS: SimETHICONE 80 MG Chewable Tablet PO (02:22)
[2024-01-08 03:00] VITALS: BP 114/42; PULSE 73; RESP 20; TEMP 36.1; O2SAT 93
--- NOTE | 2024-01-08 04:01 | PCM.HOSP.N ---
Hospitalist Note Patient becoming more edematous. Will decrease the rate of the LR.
[2024-01-08 07:28] LABS: Absolute Lymphocyte Count 0.51 X10^3/uL (0.83-4.51); Absolute Neutrophil Count 16.5 X10^3/uL (2.0-7.7); Basophil# 0.04 X10^3/uL; Basophil% 0.2 % (0-1); Hematocrit 42.4 % (40-54); Hemoglobin 14.2 g/dL (13.0-16.5); Lymphocyte # 0.51 X10^3/ul (0.83-4.51); Lymphocyte % 2.7 % (19-41); Mean Corp Hgb Conc 33.5 g/dL (32-36); Mean Corpuscular Hgb 31.5 pg (27.0-32.0); Monocyte# 1.72 X10^3/uL; Monocyte% 9.1 % (0-10); NRBC Flagged by Analyzer 0.4 % (0-5); Neutrophil % 87.6 % (47-70); POSITIVE DIFFERENTIAL YES; Platelet Count 166 K/mm3 (150-450); RBC Distribution Width CV 15.9 % (11.6-14.6); RBC Distribution Width SD 46.6 fl (35.1-43.9); Red Blood Count 4.51 M/mm3 (4.6-6.2); White Blood Count 18.9 K/mm3 (4.4-11.0)
[2024-01-08 07:31] LABS: Differential Indicated SCAN CRITERIA MET
--- NOTE | 2024-01-08 07:47 | NURSING ---
Noted pt.'s abd. to be distended but still moderately soft this shift; pt. also appeared restless this shift, often reaching arms out into air or appearing to try and shift weight. Notified Dr. polk of this and recent addition of TID lactulose to pt.'s medications. Dr. Polk ordered KUB and PO simethicone. Also informed Dr. Polk of increase in extremity edema and increase in pt.'s IV fluids. Dr. Polk changed pt.'s LR to 75ml/ hr. This nurse also applied KODY wraps to BL LE and elevated BL UE. Pt. unable to remain awake and alert for AM PO lactulose dose, so med. was held.
[2024-01-08 07:54] LABS: International Normalized Ratio 2.5
[2024-01-08 08:38] LABS: ALB/GLOB Ratio 1.1 RATIO (0.9-2.4); AST(SGOT) 608 U/L (15-37); Alanine Aminotransfer ALT/SGPT 1182 U/L (16-61); Albumin, Serum 3.3 g/dL (3.2-5.0); Alkaline Phosphatase 72 U/L (45-117); Anion Gap 23 (5-15); BUN 148 mg/dL (7-18); Calcium,Total 8.2 mg/dL (8.5-10.1); Chloride 96 mmol/L (98-107); Creatinine, Serum 4.93 mg/dL (0.70-1.30); EST Glomerular Filtration Rate 12 mL/min (>60); Est Glom Filt Rate - Afr Amer 14 mL/min (>60); Globulin 2.9 g/dL (2.2-4.2); Glucose 166 mg/dL (74-106); Potassium 3.6 mmol/L (3.5-5.1); Protein, Total 6.2 g/dL (6.4-8.2); Sodium Level 138 mmol/L (136-145)
--- NOTE | 2024-01-08 08:45 | RAD_ITS ---
STUDY: X-RAY - ABDOMEN/PELVIS REASON FOR EXAM: Male, 88 years old. Abdominal distention TECHNIQUE: Single AP view of the abdomen / pelvis. COMPARISON: None. FINDINGS: There are dilated loops of the small intestine with a non-distended colon consistent with a small bowel obstruction. The visualized liver, spleen and kidneys are grossly normal in size and morphology. Normal soft tissue structures. Normal visualized osseous structures. RAD/Abdomen Single View (Portable) IMPRESSION: Moderate small bowel obstruction. Electronically Signed: Wyatt Keyes MD at 8:49 EDT ,
[2024-01-08 09:32] VITALS: BP 140/48; PULSE 94; RESP 16; TEMP 36.6; O2SAT 93
[2024-01-08] MEDS: Menthol/Lanolin/Calamine/Znox 113 GM Tube 1 APPLIC TOPICAL ×2 (10:45→21:38)
[2024-01-08] MEDS: Ceftriaxone 1 GM/50 ML BAG IV (11:07)
--- NOTE | 2024-01-08 11:14 | CASEMGMT ---
Addendum entered by Dahlia Ramesh 01/09/24 15:16: TCU has now accepted patient unless patient were to need dialysis. SW has not notified family of this yet as dialysis is a possibility. Plan: TCU vs another SNF pending patient being medically ready. Dahlia WHITE Original Note: SUE did make a referral to [facility]. However, at this time TCU is declining patient due to his medical acuity. Patient is not quite ready for d/c yet so if patient improves SUE can ask Siobhan to re-review patient. Dahlia WHITE
--- NOTE | 2024-01-08 12:37 | PN_ITS ---
Subjective Subjective Patient seen and examined. He remains lethargic and frail. Unable to do review of systems. There was concern for abdominal distention so a KUB was ordered for this morning by the night hospitalist. His liver enzymes are trending downwards though bilirubin has trended up slightly to 2. Objective Data Objective Data Vital Signs: Vital Signs Temp Pulse Resp BP Pulse Ox O2 Del Method 97.8 F 94 16 140/48 H 93 Room Air 01/08/24 09:32 01/08/24 09:32 01/08/24 09:32 01/08/24 09:32 01/08/24 09:32 01/08/24 09:32 Oxygen Delivery Method Room Air Weight: 204 lb 2.369 oz Body Mass Index (BMI) 26.9 Intake & Output: Intake and Output for Last 24 Hours 01/06/24 01/07/24 01/08/24 23:59 23:59 23:59 Intake Total 2900.5 / 2975.5 1507.78 / 1582.78 1598.15 / 1598.15 Output Total 50 / 50 160 / 560 525 / 525 Balance 2850.5 / 2925.5 1347.78 / 1022.78 1073.15 / 1073.15 Lab / Micro Data 01/08/24 07:19 01/08/24 07:19 Labs: Laboratory Results - last 24 hr 01/06/24 06:41: Diff Path Review Reviewed 01/07/24 05:55: Diff Path Review Reviewed 01/08/24 07:19: WBC 18.9 H, RBC 4.51 L, Hgb 14.2, Hct 42.4, MCV 94.0, MCH 31.5, MCHC 33.5, RDW Std Deviation 46.6 H, RDW Coeff of Alfonso 15.9 H, Plt Count 166, MPV 13.0 H, Immature Gran % (Auto) 0.400, Neut % (Auto) 87.6 H, Lymph % (Auto) 2.7 L , [place] % (Auto) 9.1, Eos % (Auto) 0.0, Baso % (Auto) 0.2, Absolute Neuts (auto) 16.5 H, Absolute Lymphs (auto) 0.51 L, Nucleated RBC % 0.4, Differential Comment , Diff Path Review May foll, PT 27.0 H, INR 2.5, Sodium 138, Potassium 3.6, C hloride 96 L, Carbon Dioxide 19.0 L, Anion Gap 23 H, BUN 148 H*, Creatinine 4.93 H, Estim Creat Clear Calc 11.70, Est GFR (MDRD) Af Amer 14 L, Est GFR (MDRD) Non-Af 12 L, BUN/Creatinine Ratio 30.0 H, Glucose 166 H, Calcium 8.2 L, Total Bilirubin 2.00 H, AST 608 H, ALT 1182 H, Alkaline Phosphatase 72, Total Protein 6.2 L, Albumin 3.3, Globulin 2.9, Albumin/Globulin Ratio 1.1 Physical Exam Const alert Constitutional Narrative: frail and weak Orientation / Consciousness: lethargic HEENT normocephalic, head/scalp atraumatic, moist oral mucous membranes and oropharynx normal Eyes PERRL and EOMs intact bilaterally Neck no lymphadenopathy and supple Lymph Lymphatic: no lymphadenopathy noted and no lymphedema noted Resp normal respiratory effort, normal air movement and clear to auscultation bilaterally Cardio regular rate, regular rhythm, S1 normal heart sound, S2 normal heart sound and no murmurs GI normal to inspection, nondistended, normoactive bowel sounds, soft to palpation and non-tender GI Narrative: no right upper quadrant tenderness. No significant abdominal distension Extremity normal capillary refill, no clubbing, cyanosis or edema and no calf tenderness General Extremity: no tenderness to palpation of joints or extremities Skin Skin Narrative: no visible jaundice General Skin Exam: no breakdown Neuro CN's II-XII intact bilaterally Neuro Narrative: very frail, lethargic Motor Exam: general weakness Psych Mood & Affect: flat affect Assessment & Plan Assessment/Plan (1) Atrial fibrillation: (2) Acute kidney injury superimposed on stage 2 chronic kidney disease: (3) Transaminitis: (4) Elevated INR: PLAN: Plan #Acute hepatic encephalopathy * Patient still remains lethargic. Liver enzymes continue to trend downwards. * hepatitis panel was negative. * bilirubin today is slightly up to 2 * continue lactulose * GI on board; patient started on N acetyl cysteine. Now off n-acetyl cysteine. * acetaminophen level was not elevated. * Hold all hepatotoxic medication. * #Acute transaminitis: As above #Supratherapeutic INR: Resolved after receiving IV vitamin K. INR today is 2.5. * #BEAN: * Nephrology on board. * Cr today is further up to 4.93. Remains on sodium bicarb drip. * Will monitor creatinine and defer to nephrology about whether to initiate dialysis otherwise. #Anion gap metabolic acidosis: * Likely due to uremia from BEAN. * Bicarb is 19 today; patient on bicarb drip per nephrology. Anion gap is 16. * Should improve as kidney function improves. * Nephrology on board and to decide whether to initiate patient on dialysis. * #COVID-19 infection * symptoms started on 12/25/2023, so patient taken out of precautions on 01/06/2024 * on room air * breathing treatment with bronchodilators. * #Hyperkalemia: resolved #Paroxysmal afib: coumadin on hold due to supratherapeutic iNR. Will monitor. On metoprolol #Hyperlipidemia: simvastatin on hold due to liver injury #GERD: on PPI DVT prophylaxis; not indicated due to supratherapeutic INR. Prognosis: prognosis remains poor. Patient is still very frail, weak and lethargic. WIll call family to discuss goals of care Charges/Coding Visit Charges Inpatient E&M: 61273 Subs Hosp L3
--- NOTE | 2024-01-08 13:57 | PN.RENAL_ITS ---
Subjective Subjective Patient is resting in bed. Family not at bedside. Patient is alert to name but appears very drowsy. Objective Data Objective Data Vital Signs: Vital Signs Temp Pulse Resp BP Pulse Ox O2 Del Method 97.8 F 94 16 140/48 H 93 Room Air 01/08/24 09:32 01/08/24 09:32 01/08/24 09:32 01/08/24 09:32 01/08/24 09:32 01/08/24 09:32 Oxygen Delivery Method Room Air Weight: 92.6 kg Body Mass Index (BMI) 26.9 Intake & Output: Intake and Output for Last 24 Hours 01/06/24 01/07/24 01/08/24 23:59 23:59 23:59 Intake Total 2900.5 / 2975.5 1507.78 / 1582.78 1598.15 / 1598.15 Output Total 50 / 50 160 / 560 525 / 525 Balance 2850.5 / 2925.5 1347.78 / 1022.78 1073.15 / 1073.15 Lab / Micro Data 01/08/24 07:19 01/08/24 07:19 Labs: Laboratory Results - last 24 hr 01/08/24 07:19: WBC 18.9 H, RBC 4.51 L, Hgb 14.2, Hct 42.4, MCV 94.0, MCH 31.5, MCHC 33.5, RDW Std Deviation 46.6 H, RDW Coeff of Alfonso 15.9 H, Plt Count 166, MPV 13.0 H, Immature Gran % (Auto) 0.400, Neut % (Auto) 87.6 H, Lymph % (Auto) 2.7 L , [place] % (Auto) 9.1, Eos % (Auto) 0.0, Baso % (Auto) 0.2, Absolute Neuts (auto) 16.5 H, Absolute Lymphs (auto) 0.51 L, Nucleated RBC % 0.4, Differential Comment , Diff Path Review September foll, PT 27.0 H, INR 2.5, Sodium 138, Potassium 3.6, C hloride 96 L, Carbon Dioxide 19.0 L, Anion Gap 23 H, BUN 148 H*, Creatinine 4.93 H, Estim Creat Clear Calc 11.70, Est GFR (MDRD) Af Amer 14 L, Est GFR (MDRD) Non-Af 12 L, BUN/Creatinine Ratio 30.0 H, Glucose 166 H, Calcium 8.2 L, Total Bilirubin 2.00 H, AST 608 H, ALT 1182 H, Alkaline Phosphatase 72, Total Protein 6.2 L, Albumin 3.3, Globulin 2.9, Albumin/Globulin Ratio 1.1 01/08/24 12:57: Ammonia 54.0 H Physical Exam Narrative Alert and oriented, no apparent distress. Lethargy noted S1, S2, RRR Lung sounds clear anteriorly Abdomen soft, nontender Girish wrap's intact to bilateral lower legs from feet to knees. No edema bilateral thighs. Assessment & Plan Assessment/Plan (1) Acute kidney injury superimposed on stage 2 chronic kidney disease: PLAN: - Acute kidney injury in the setting of renal hypoperfusion due to active COVID infection, liver impairment, dehydration. Hopefully creatinine has reached a plateau. Acidosis improved significantly with IV bicarb drip. BUN continues to go up but may be reaching plateau as well, he probably is still quite prerenal. At this time patient does not need any renal replacement therapy and will continue with IV fluids for volume expansion. Urine output is picking up. Patient remains NPO. Patient is on room air. Blood pressures are improving. Labs ordered for am.
[2024-01-08 15:11] VITALS: BP 107/51; PULSE 85; RESP 16; TEMP 36.6; O2SAT 93
--- NOTE | 2024-01-08 19:44 | EX.PCM.PN.GI ---
Subjective Subjective Patient has been very lethargic. He has not been eating much. He got a KUB for abdominal distention and reading is pending. He also got a liver ultrasound: Liver: The liver measures 16.9 cm. There is a heterogeneous echogenicity of the liver. The bile ducts are within normal limits. There is hepatic color flow. The direction of portal flow is hepatopetal. There is no demonstrated mass lesion. Gallbladder: Normal distended gallbladder. The gallbladder wall measures 3 mm. There is a negative sonographic Mcclellan''s sign. There is no pericholecystic fluid. There are no gallstones. Common Bile Duct (C.B.D.): The common bile duct measures 3 mm. Pancreas: There is nonvisualization of the pancreas. Right Kidney: Normal size of the right kidney. The right kidney measures 10.3 cm. Normal renal cortex. The right cortex measures 1.5 cm. There is no demonstrated renal mass or cyst. There is no right hydronephrosis. Objective Data Objective Data Vital Signs: Vital Signs Temp Pulse Resp BP Pulse Ox O2 Del Method 97.9 F 85 16 107/51 L 93 Room Air 01/08/24 15:11 01/08/24 15:11 01/08/24 15:11 01/08/24 15:11 01/08/24 15:11 01/08/24 15:11 Oxygen Delivery Method Room Air Weight: 204 lb 2.369 oz Body Mass Index (BMI) 26.9 Intake & Output: Intake and Output for Last 24 Hours 01/06/24 01/07/24 01/08/24 23:59 23:59 23:59 Intake Total 2900.5 / 2975.5 1507.78 / 1582.78 2648.15 / 2648.15 Output Total 50 / 50 160 / 560 625 / 625 Balance 2850.5 / 2925.5 1347.78 / 1022.78 2023.15 / 2023.15 Lab / Micro Data 01/08/24 07:19 01/08/24 07:19 Labs: Laboratory Results - last 24 hr 01/08/24 07:19: WBC 18.9 H, RBC 4.51 L, Hgb 14.2, Hct 42.4, MCV 94.0, MCH 31.5, MCHC 33.5, RDW Std Deviation 46.6 H, RDW Coeff of Alfonso 15.9 H, Plt Count 166, MPV 13.0 H, Immature Gran % (Auto) 0.400, Neut % (Auto) 87.6 H, Lymph % (Auto) 2.7 L, [place] % (Auto) 9.1, Eos % (Auto) 0.0, Baso % (Auto) 0.2, Absolute Neuts (auto) 16.5 H, Absolute Lymphs (auto) 0.51 L, Nucleated RBC % 0.4, Differential Comment , Diff Path Review September, PT 27.0 H, INR 2.5, Sodium 138, Potassium 3.6, Chloride 96 L, Carbon Dioxide 19.0 L, Anion Gap 23 H, BUN 148 H*, Creatinine 4.93 H, Estim Creat Clear Calc 11.70, Est GFR (MDRD) Af Amer 14 L, Est GFR (MDRD) Non-Af 12 L, BUN/Creatinine Ratio 30.0 H, Glucose 166 H, Calcium 8.2 L, Total Bilirubin 2.00 H, AST 608 H, ALT 1182 H, Alkaline Phosphatase 72, Total Protein 6.2 L, Albumin 3.3, Globulin 2.9, Albumin/Globulin Ratio 1.1 01/08/24 12:57: Ammonia 54.0 H Physical Exam Const alert Constitutional Narrative: weak Orientation / Consciousness: lethargic HEENT normocephalic, head/scalp atraumatic, moist oral mucous membranes and oropharynx normal Eyes PERRL and EOMs intact bilaterally Neck no lymphadenopathy and supple Lymph Lymphatic: no lymphadenopathy noted and no lymphedema noted Resp normal respiratory effort, normal air movement and clear to auscultation bilaterally Cardio regular rate, regular rhythm, S1 normal heart sound, S2 normal heart sound and no murmurs GI normal to inspection, nondistended, normoactive bowel sounds, soft to palpation and non-tender GI Narrative: no right upper quadrant tenderness. No significant abdominal distension Extremity normal capillary refill, no clubbing, cyanosis or edema and no calf tenderness General Extremity: no tenderness to palpation of joints or extremities Skin Skin Narrative: no visible jaundice General Skin Exam: no breakdown Neuro CN's II-XII intact bilaterally Neuro Narrative: very frail, lethargic Motor Exam: general weakness Psych Mood & Affect: flat affect Assessment & Plan Assessment/Plan (1) Elevated INR: (2) Transaminitis: PLAN: Plan 81-year-old gentleman with multiple comorbidities including CHF, atrial fibrillation, right bundle branch block, aortic aneurysm, aortic valve replacement on Coumadin presents with fatigue, lethargy and recent COVID infection. He was discovered to have metabolic encephalopathy likely multifactorial from severe uremia and acute liver injury. Elevated liver enzymes-this is following the pattern of ischemic hepatitis. It is likely multifactorial. Ischemic hepatitis results from insufficient blood flow volume and/or oxygen content to the hepatocytes. Acute hypoxic respiratory failure as a result of COVID-19 infection is one of the potential causes of this type of liver injury. Other possible causes of liver injury include direct viral cytopathic effect, cytokinesis and drug-induced liver injury. Other things need to be ruled out such as autoimmune hepatitis, acute hepatitis A. 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 I would DC acetaminophen and give him an acetylcysteine for ischemic hepatitis. I do not think he needs a liver biopsy as his INR did not correct appropriately and he did have some improvement in his LFTs and liver function with a decrease slightly and his INR. There can be a second peak therefore I think he would benefit from N-acetylcysteine. If things change then he would need a liver biopsy to look for necrosis. 01/08/2024-patient's AST and ALT are improving and only a slightly increase in bilirubin secondary to poor renal clearance. Initial injury is looking like ischemic hepatitis. There is no sign of cirrhosis seen on his imaging. He received N-acetylcysteine which I think is drastically helped his liver enzymes by repeating his glutathione. He has severely elevated BUN that is likely associated with his altered mental status causing metabolic encephalopathy. He has no stigmata of chronic liver disease. Recommend to continue follow LFTs and liver enzymes. Workup pending for autoimmune liver disease. Charges/Coding Visit Charges Inpatient E&M: 03205 Init Hosp L3
[2024-01-08 21:30] VITALS: BP 112/68; PULSE 85; RESP 20; TEMP 36.2; O2SAT 94
[2024-01-09 03:39] VITALS: BP 112/64; PULSE 86; RESP 16; TEMP 36.2; O2SAT 96
[2024-01-09] MEDS: Lactated Ringers 1,000 ML 75 ML IV (03:44)
[2024-01-09 05:04] VITALS: BMI 26.9
[2024-01-09 06:49] LABS: Absolute Lymphocyte Count 0.52 X10^3/uL (0.83-4.51); Absolute Neutrophil Count 13.8 X10^3/uL (2.0-7.7); Basophil# 0.02 X10^3/uL; Basophil% 0.1 % (0-1); Hematocrit 41.4 % (40-54); Hemoglobin 13.7 g/dL (13.0-16.5); Lymphocyte # 0.52 X10^3/ul (0.83-4.51); Lymphocyte % 3.2 % (19-41); Mean Corp Hgb Conc 33.1 g/dL (32-36); Mean Corpuscular Hgb 31.6 pg (27.0-32.0); Mean Corpuscular Volume 95.6 fL (80-94); Mean Platelet Vol. 12.9 fl (6.2-12.0); Monocyte# 1.94 X10^3/uL; Monocyte% 11.9 % (0-10); NRBC Flagged by Analyzer 0.2 % (0-5); Neutrophil # 13.83 X10^3/uL (2.7-7.7); Neutrophil % 84.4 % (47-70); POSITIVE DIFFERENTIAL YES; Platelet Count 114 K/mm3 (150-450); RBC Distribution Width CV 16.3 % (11.6-14.6); RBC Distribution Width SD 48.3 fl (35.1-43.9); Red Blood Count 4.33 M/mm3 (4.6-6.2); White Blood Count 16.4 K/mm3 (4.4-11.0)
[2024-01-09 06:55] LABS: International Normalized Ratio 2.8
[2024-01-09 07:08] LABS: Differential Indicated SCAN CRITERIA MET
[2024-01-09 07:42] LABS: Differential Comment SCANNED
[2024-01-09] MEDS: Menthol/Lanolin/Calamine/Znox 113 GM Tube 1 APPLIC TOPICAL ×2 (07:51→20:56)
[2024-01-09 08:18] LABS: ALB/GLOB Ratio 1.2 RATIO (0.9-2.4); AST(SGOT) 340 U/L (15-37); Alanine Aminotransfer ALT/SGPT 898 U/L (16-61); Albumin, Serum 3.1 g/dL (3.2-5.0); Alkaline Phosphatase 65 U/L (45-117); Anion Gap 21 (5-15); BUN 156 mg/dL (7-18); BUN/Creat Ratio 30.4 RATIO (10-20); Calcium,Total 8.2 mg/dL (8.5-10.1); Chloride 97 mmol/L (98-107); Creatinine, Serum 5.14 mg/dL (0.70-1.30); EST Glomerular Filtration Rate 11 mL/min (>60); Est Glom Filt Rate - Afr Amer 14 mL/min (>60); Estimated Creatinine Clearance 11.23 ml/min; Globulin 2.5 g/dL (2.2-4.2); Glucose 161 mg/dL (74-106); Potassium 3.3 mmol/L (3.5-5.1); Protein, Total 5.6 g/dL (6.4-8.2); Sodium Level 138 mmol/L (136-145)
[2024-01-09 08:18] LABS: Pathologist Review Reviewed
[2024-01-09 09:14] VITALS: BP 121/48; PULSE 79; RESP 17; TEMP 36.6; O2SAT 92
[2024-01-09 09:15] VITALS: PULSE 79; RESP 18
[2024-01-09] MEDS: Ceftriaxone 1 GM/50 ML BAG IV (09:24)
--- NOTE | 2024-01-09 10:30 | PN_ITS ---
Subjective Subjective Patient seen and examined. He remains very lethargic. His lips are very dry. He was made NPO yesterday due to concerns about dysphagia. He has remained hemodynamically stable. BUN continues to trend upwards and is 156 today and creatinine is also trended up to 5.14. AST and ALT also continue to trend downwards. Objective Data Objective Data Vital Signs: Vital Signs Temp Pulse Resp BP Pulse Ox O2 Del Method 97.9 F 79 18 121/48 H 92 Room Air 01/09/24 09:14 01/09/24 09:15 01/09/24 09:15 01/09/24 09:14 01/09/24 09:14 01/09/24 09:15 Oxygen Delivery Method Room Air Weight: 204 lb 2.369 oz Body Mass Index (BMI) 26.9 Intake & Output: Intake and Output for Last 24 Hours 01/07/24 01/08/24 01/09/24 23:59 23:59 23:59 Intake Total 1507.78 / 1582.78 2981.48 / 2981.48 615 / 615 Output Total 160 / 560 625 / 775 250 / 250 Balance 1347.78 / 1022.78 2356.48 / 2206.48 365 / 365 Lab / Micro Data 01/09/24 06:12 01/09/24 06:11 Labs: Laboratory Results - last 24 hr 01/08/24 07:19: Diff Path Review Reviewed 01/08/24 12:57: Ammonia 54.0 H 01/09/24 06:11: Sodium 138, Potassium 3.3 L, Chloride 97 L, Carbon Dioxide 20.0 L, Anion Gap 21 H, BUN 156 H*, Creatinine 5.14 H, Estim Creat Clear Calc 11.23, Est GFR (MDRD) Af Amer 14 L, Est GFR (MDRD) Non-Af 11 L, BUN/Creatinine Ratio 30.4 H, Glucose 161 H, Calcium 8.2 L, Total Bilirubin 1.70 H, AST 340 H, ALT 898 H, Alkaline Phosphatase 65, Total Protein 5.6 L, Albumin 3.1 L, Globulin 2.5, Albumin/Globulin Ratio 1.2 01/09/24 06:12: WBC 16.4 H, RBC 4.33 L, Hgb 13.7, Hct 41.4, MCV 95.6 H, MCH 31.6, MCHC 33.1, RDW Std Deviation 48.3 H, RDW Coeff of Alfonso 16.3 H, Plt Count 114 L, MPV 12.9 H, Immature Gran % (Auto) 0.400, Neut % (Auto) 84.4 H, Lymph % (Auto) 3.2 L, [place] % (Auto) 11.9 H, Eos % (Auto) 0.0, Baso % (Auto) 0.1, A bsolute Neuts (auto) 13.8 H, Absolute Lymphs (auto) 0.52 L, Nucleated RBC % 0.2, Differential Comment SCANNED, Diff Path Review September, PT 29.0 H, INR 2.8 01/09/24 08:15: Ammonia 65.0 H Radiography Diagnostic Testing: Radiology Impression KUB X-Ray 01/08/24 08:45 IMPRESSION: Moderate small bowel obstruction. Electronically Signed: Wyatt Keyes MD at 8:49 EDT , Physical Exam Const alert Constitutional Narrative: frail and weak Orientation / Consciousness: lethargic HEENT normocephalic, head/scalp atraumatic and oropharynx normal Mouth: dry mucous membranes Eyes PERRL and EOMs intact bilaterally Neck no lymphadenopathy and supple Lymph Lymphatic: no lymphadenopathy noted and no lymphedema noted Resp normal respiratory effort, normal air movement and clear to auscultation bilaterally Cardio regular rate, regular rhythm, S1 normal heart sound, S2 normal heart sound and no murmurs GI normal to inspection, nondistended, normoactive bowel sounds, soft to palpation and non-tender Extremity normal capillary refill, no clubbing, cyanosis or edema and no calf tenderness General Extremity: no tenderness to palpation of joints or extremities Skin General Skin Exam: no breakdown Neuro Neuro Narrative: very frail, lethargic Motor Exam: general weakness Psych Mood & Affect: flat affect Assessment & Plan Assessment/Plan (1) Atrial fibrillation: (2) Acute kidney injury superimposed on stage 2 chronic kidney disease: (3) Transaminitis: (4) Elevated INR: PLAN: Plan #Acute hepatic encephalopathy * Patient still remains lethargic. Liver enzymes continue to trend downwards, with AST/ALT down to 340/898. ALP is 65. Total bilirubin is down today to 1.7. * hepatitis panel was negative. * continue lactulose; will switch to rectal lactulose since he is now NPO * GI on board; patient started on N acetyl cysteine. Now off n-acetyl cysteine. * acetaminophen level was not elevated. * Hold all hepatotoxic medication. * #Acute transaminitis: As above. Resolving. Liver enzymes are trending downwards. #Supratherapeutic INR: Resolved after receiving IV vitamin K. INR today is 2.8. * #BEAN: * Nephrology on board. * Cr today is further up to 5.14 today, with BUN up to 156. Remains on sodium bicarb drip. * Will monitor creatinine and defer to nephrology about whether to initiate dialysis otherwise. * Kidney function is not improving though, so he is heading towards dialysis. #Anion gap metabolic acidosis: * Likely due to uremia from BEAN. * Bicarb is 20 today; patient on bicarb drip per nephrology. Anion gap is 21. * Should improve as kidney function improves. * Nephrology on board and to decide whether to initiate patient on dialysis. * #COVID-19 infection * symptoms started on 12/25/2023, so patient taken out of precautions on 01/06/2024 * on room air * breathing treatment with bronchodilators. * #Dysphagia * patient made NPO by speech yesterday due to concerns about dysphagia * speech therapy on board. * #Hyperkalemia: resolved #Hypokalemia: K is 3.3. Will replace today and trend. #Paroxysmal afib: coumadin on hold due to supratherapeutic iNR. Will monitor. On metoprolol #Hyperlipidemia: simvastatin on hold due to liver injury #GERD: on PPI DVT prophylaxis; not indicated due to supratherapeutic INR. Prognosis: prognosis remains poor. Patient is still very frail, weak and lethargic. I did speak to his today about his current state and goals of care. She expressed understanding about his current medical state and I explained that that at this point, we are waiting for nephrology to decide whether they are going to dialyze patient or not. I clarified CODE STATUS with the . She stated that she was surprised when her said he wanted to be full code on the day he was admitted. She thinks he was a bit confused but did not really did not understand what he was saying as he had always said he did not want any prolongation of care. I explained to the that being full code did not mean that he would be on a ventilator forever but that the family could change their minds and withdraw care if needed if the patient was not progressing as expected if he was intubated. expressed understanding of the clarification as she had thought that if he opted to be full code treatment he would have to be on the ventilator for the rest of his life. She was therefore wanting to be full code, knowing that family reserves the right to withdraw care if patient is not improving in the event that he is intubated. She would want him to have CPR as well. Total time spent [id number]: 20 minutes. 4:07pm I was informed by patient's nurse that patient's wanted me to come and talk to her son also about the CODE STATUS. I spoke to patient's and his son again about his CODE STATUS. Patient's son requested to record the conversation so that it would be easier to explain to his other siblings. With the benefit of diagrams, I clarified the differences between full code, DNR CC and DNR CCA. I explained to them that the [facility] was unique and that there were 2 further breakdowns for the DO NOT RESUSCITATE option namely DNR CCA and DNR CC. I explained the differences between DNR CCA and DNR CC and explained that if they opted for DNR CC, the comfort care measures would setting immediately but if they opted for DNR CCA then comfort measures would only certain if the patient went into cardiac arrest or required intubation. After extensive deliberation, family opted for patient to be DNR CCA. They also wanted to know about his nutrition status. Patient was made n.p.o. yesterday because he was getting more lethargic and there were concerns about aspiration. I counseled them that I had reached out to the dietitian who had recommended tube feeds. The tube feeds would however require patient having an NG tube or OG tube inserted. did not seem willing to have patient have an NG or OG tube inserted and family wants to discuss if they want patient to have tube feeds or not. They also wanted to know about dialysis but I informed them that nephrology would be best placed to answer any questions about dialysis. They had questions about whether the dialysis would cause any pain in the side effects and risks of dialysis. I explained to them that patient was very uremic and that was contributing to his debility and obtundation. As such the benefits of dialysis in this case would be very much in the patient's interest but I would defer to nephrology about when dialysis would commence and to answer any questions about dialysis. As stated family opted to make patient DNR CCA no intubation. Total time spent: Approximately 30 minutes. Charges/Coding Visit Charges Inpatient E&M: 74916 Subs Hosp L3 (45481 prolonged inpatient ) Procedures Hospitalists Procedures: 90321 Advncd Care Plan 30 Min
[2024-01-09 11:44] VITALS: BP 118/34; PULSE 88; RESP 18; TEMP 36.6; O2SAT 94
[2024-01-09 12:10] LABS: Pathologist Review Reviewed
--- NOTE | 2024-01-09 14:17 | PN.RENAL_ITS ---
Subjective Subjective Follow-up on acute kidney injury in the setting of COVID, liver failure and dehydration. He has been n.p.o. for about a week. Currently on maintenance IV. That he is somnolent, but wakes up easily and answers questions appropriately. Case has been discussed with son and the [id number] Objective Data Objective Data Vital Signs: Vital Signs Temp Pulse Resp BP Pulse Ox O2 Del Method 97.8 F 88 18 118/34 L 94 Room Air 01/09/24 11:44 01/09/24 11:44 01/09/24 11:44 01/09/24 11:44 01/09/24 11:44 01/09/24 11:44 Oxygen Delivery Method Room Air Weight: 92.6 kg Body Mass Index (BMI) 26.9 Intake & Output: Intake and Output for Last 24 Hours 01/07/24 01/08/24 01/09/24 23:59 23:59 23:59 Intake Total 1507.78 / 1582.78 2981.48 / 2981.48 615 / 615 Output Total 160 / 560 625 / 775 350 / 350 Balance 1347.78 / 1022.78 2356.48 / 2206.48 265 / 265 Lab / Micro Data Attestation: I reviewed the patient's lab results. 01/09/24 06:12 01/09/24 06:11 Labs: Laboratory Results - last 24 hr 01/08/24 07:19: Diff Path Review Reviewed 01/09/24 06:11: Sodium 138, Potassium 3.3 L, Chloride 97 L, Carbon Dioxide 20.0 L, Anion Gap 21 H, BUN 156 H*, Creatinine 5.14 H, Estim Creat Clear Calc 11.23, Est GFR (MDRD) Af Amer 14 L, Est GFR (MDRD) Non-Af 11 L, BUN/Creatinine Ratio 30.4 H, Glucose 161 H, Calcium 8.2 L, Total Bilirubin 1.70 H, AST 340 H, ALT 898 H, Alkaline Phosphatase 65, Total Protein 5.6 L, Albumin 3.1 L, Globulin 2.5, Albumin/Globulin Ratio 1.2 01/09/24 06:12: WBC 16.4 H, RBC 4.33 L, Hgb 13.7, Hct 41.4, MCV 95.6 H, MCH 31.6, MCHC 33.1, RDW Std Deviation 48.3 H, RDW Coeff of Alfonso 16.3 H, Plt Count 114 L, MPV 12.9 H, Immature Gran % (Auto) 0.400, Neut % (Auto) 84.4 H, Lymph % (Auto) 3.2 L, [place] % (Auto) 11.9 H, Eos % (Auto) 0.0, Baso % (Auto) 0.1, A bsolute Neuts (auto) 13.8 H, Absolute Lymphs (auto) 0.52 L, Nucleated RBC % 0.2, Differential Comment SCANNED, Diff Path Review Reviewed, PT 29.0 H, INR 2.8 01/09/24 08:15: Ammonia 65.0 H Radiography Diagnostic Testing: Radiology Impression KUB X-Ray 01/08/24 08:45 IMPRESSION: Moderate small bowel obstruction. Electronically Signed: Wyatt Keyes MD at 8:49 EDT , Physical Exam Const Orientation / Consciousness: oriented to person, oriented to place and lethargic HEENT normocephalic Head and Scalp: atraumatic Neck no lymphadenopathy Resp no use of accessory muscles and clear to auscultation bilaterally Cardio Rhythm: abnormal rhythm irregularly irregular GI non-tender Auscultation: normoactive bowel sounds Skin no rashes or lesions noted Neuro Sensorium / Orientation: lethargic Psych Memory / Cognition: cognition impaired Assessment & Plan Assessment/Plan (1) Acute kidney injury superimposed on stage 2 chronic kidney disease: PLAN: Acute kidney injury in the setting of COVID infection, dehydration, malnutrition and liver failure. Creatinine seems to be plateauing and no hyperkalemia, no respiratory compromise. The only issue is azotemia and possibly his impaired sensorium is due uremia, which I cannot tell. We have discussed option of doing dialysis, large bore line placement, possibly dropping blood pressure in post pointing renal function recovery. At this moment there is no clear, to urgent indication for dialysis so we decided to wait another day. I will increase IV fluids trying to improve renal perfusion
[2024-01-09] MEDS: Lactulose 20 GM/30 ML UDC 200 GM RC ×3 (14:44→20:33)
[2024-01-09] MEDS: Lactated Ringers 1,000 ML 125 ML IV (16:47)
[2024-01-09 17:57] VITALS: BP 127/66; PULSE 88; RESP 18; TEMP 36.4; O2SAT 96
--- NOTE | 2024-01-09 18:58 | EX.PCM.PN.GI ---
Subjective Subjective Patient is still very lethargic and not eating much. Objective Data Objective Data Vital Signs: Vital Signs Temp Pulse Resp BP Pulse Ox O2 Del Method 97.5 F L 88 18 127/66 H 96 Room Air 01/09/24 17:57 01/09/24 17:57 01/09/24 17:57 01/09/24 17:57 01/09/24 17:57 01/09/24 17:57 Oxygen Delivery Method Room Air Weight: 204 lb 2.369 oz Body Mass Index (BMI) 26.9 Intake & Output: Intake and Output for Last 24 Hours 01/07/24 01/08/24 01/09/24 23:59 23:59 23:59 Intake Total 1507.78 / 1582.78 2981.48 / 2981.48 1615.00 / 1615.00 Output Total 160 / 560 625 / 775 500 / 500 Balance 1347.78 / 1022.78 2356.48 / 2206.48 1115.00 / 1115.00 Lab / Micro Data 01/09/24 06:12 01/09/24 06:11 Labs: Laboratory Results - last 24 hr 01/08/24 07:19: Diff Path Review Reviewed 01/09/24 06:11: Sodium 138, Potassium 3.3 L, Chloride 97 L, Carbon Dioxide 20.0 L, Anion Gap 21 H, BUN 156 H*, Creatinine 5.14 H, Estim Creat Clear Calc 11.23, Est GFR (MDRD) Af Amer 14 L, Est GFR (MDRD) Non-Af 11 L, BUN/Creatinine Ratio 30.4 H, Glucose 161 H, Calcium 8.2 L, Total Bilirubin 1.70 H, AST 340 H, ALT 898 H, Alkaline Phosphatase 65, Total Protein 5.6 L, Albumin 3.1 L, Globulin 2.5, Albumin/Globulin Ratio 1.2 01/09/24 06:12: WBC 16.4 H, RBC 4.33 L, Hgb 13.7, Hct 41.4, MCV 95.6 H, MCH 31.6, MCHC 33.1, RDW Std Deviation 48.3 H, RDW Coeff of Alfonso 16.3 H, Plt Count 114 L, MPV 12.9 H, Immature Gran % (Auto) 0.400, Neut % (Auto) 84.4 H, Lymph % (Auto) 3.2 L, [place] % (Auto) 11.9 H, Eos % (Auto) 0.0, Baso % (Auto) 0.1, Absolute Neuts (auto) 13.8 H, Absolute Lymphs (auto) 0.52 L, Nucleated RBC % 0.2, Differential Comment SCANNED, Diff Path Review Reviewed, PT 29.0 H, INR 2.8 01/09/24 08:15: Ammonia 65.0 H Radiography Diagnostic Testing: Radiology Impression KUB X-Ray 01/08/24 08:45 IMPRESSION: Moderate small bowel obstruction. Electronically Signed: Wyatt Keyes MD at 8:49 EDT , Physical Exam Const Orientation / Consciousness: oriented to person, oriented to place and lethargic HEENT normocephalic Head and Scalp: atraumatic Neck no lymphadenopathy Resp no use of accessory muscles and clear to auscultation bilaterally Cardio Rhythm: abnormal rhythm irregularly irregular GI non-tender Auscultation: normoactive bowel sounds Skin no rashes or lesions noted Neuro Sensorium / Orientation: lethargic Psych Memory / Cognition: cognition impaired Assessment & Plan Assessment/Plan (1) Elevated INR: (2) Transaminitis: PLAN: Plan 81-year-old gentleman with multiple comorbidities including CHF, atrial fibrillation, right bundle branch block, aortic aneurysm, aortic valve replacement on Coumadin presents with fatigue, lethargy and recent COVID infection. He was discovered to have metabolic encephalopathy likely multifactorial from severe uremia and acute liver injury. Elevated liver enzymes-this is following the pattern of ischemic hepatitis. It is likely multifactorial. Ischemic hepatitis results from insufficient blood flow volume and/or oxygen content to the hepatocytes. Acute hypoxic respiratory failure as a result of COVID-19 infection is one of the potential causes of this type of liver injury. Other possible causes of liver injury include direct viral cytopathic effect, cytokinesis and drug-induced liver injury. Other things need to be ruled out such as autoimmune hepatitis, acute hepatitis A. 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 I would DC acetaminophen and give him an acetylcysteine for ischemic hepatitis. I do not think he needs a liver biopsy as his INR did not correct appropriately and he did have some improvement in his LFTs and liver function with a decrease slightly and his INR. There can be a second peak therefore I think he would benefit from N-acetylcysteine. If things change then he would need a liver biopsy to look for necrosis. 01/08/2024-patient's AST and ALT are improving and only a slightly increase in bilirubin secondary to poor renal clearance. Initial injury is looking like ischemic hepatitis. There is no sign of cirrhosis seen on his imaging. He received N-acetylcysteine which I think is drastically helped his liver enzymes by repeating his glutathione. He has severely elevated BUN that is likely associated with his altered mental status causing metabolic encephalopathy. He has no stigmata of chronic liver disease. Recommend to continue follow LFTs and liver enzymes. Workup pending for autoimmune liver disease. 01/09/2024-his AST and ALT continue to improve. His bilirubin also improving which corresponds with ischemic hepatitis. With his poor creatinine clearance it would take longer for his ammonia to go down and his LFTs along with liver enzymes. Continue to avoid hepatotoxic agents. Maintain systolic blood pressure greater than 100. Charges/Coding Visit Charges Inpatient E&M: 37774 Subs Hosp L3
[2024-01-09 22:00] VITALS: BP 113/40; PULSE 93; RESP 18; TEMP 35.6; O2SAT 93
[2024-01-10] MEDS: Lactulose 20 GM/30 ML UDC 200 GM RC (01:58)
[2024-01-10] MEDS: Lactated Ringers 1,000 ML 125 ML IV ×4 (01:59→23:40)
[2024-01-10 04:00] VITALS: BP 122/64; PULSE 80; RESP 18; TEMP 35.2; O2SAT 93
[2024-01-10 06:00] VITALS: BMI 28.0
[2024-01-10 06:47] LABS: Absolute Lymphocyte Count 0.52 X10^3/uL (0.83-4.51); Absolute Neutrophil Count 13.3 X10^3/uL (2.0-7.7); Basophil# 0.02 X10^3/uL; Basophil% 0.1 % (0-1); Eosinophil# 0.01 X10^3/uL; Eosinophils% 0.1 % (0-5); Hematocrit 42.8 % (40-54); Hemoglobin 13.8 g/dL (13.0-16.5); Lymphocyte # 0.52 X10^3/ul (0.83-4.51); Lymphocyte % 3.3 % (19-41); Mean Corp Hgb Conc 32.2 g/dL (32-36); Mean Corpuscular Hgb 31.4 pg (27.0-32.0); Mean Corpuscular Volume 97.3 fL (80-94); Mean Platelet Vol. 13.5 fl (6.2-12.0); Monocyte% 11.5 % (0-10); NRBC Flagged by Analyzer 0.1 % (0-5); Neutrophil # 13.28 X10^3/uL (2.7-7.7); Neutrophil % 84.6 % (47-70); POSITIVE COUNT YES; POSITIVE DIFFERENTIAL YES; Platelet Count 89 K/mm3 (150-450); RBC Distribution Width CV 16.8 % (11.6-14.6); RBC Distribution Width SD 50.5 fl (35.1-43.9); White Blood Count 15.7 K/mm3 (4.4-11.0)
[2024-01-10 06:52] LABS: Differential Indicated SCAN CRITERIA MET
[2024-01-10 06:59] LABS: International Normalized Ratio 2.7; Prothrombin Time (Protime)PT. 28.2 SECONDS (11.7-14.9)
[2024-01-10 07:32] LABS: ALB/GLOB Ratio 1.3 RATIO (0.9-2.4); AST(SGOT) 196 U/L (15-37); Alanine Aminotransfer ALT/SGPT 693 U/L (16-61); Albumin, Serum 3.2 g/dL (3.2-5.0); Alkaline Phosphatase 68 U/L (45-117); Anion Gap 19 (5-15); BUN 158 mg/dL (7-18); BUN/Creat Ratio 32.4 RATIO (10-20); Chloride 103 mmol/L (98-107); Creatinine, Serum 4.88 mg/dL (0.70-1.30); EST Glomerular Filtration Rate 12 mL/min (>60); Est Glom Filt Rate - Afr Amer 15 mL/min (>60); Estimated Creatinine Clearance 12.79 ml/min; Globulin 2.5 g/dL (2.2-4.2); Glucose 148 mg/dL (74-106); Potassium 3.1 mmol/L (3.5-5.1); Protein, Total 5.7 g/dL (6.4-8.2); Sodium Level 144 mmol/L (136-145)
[2024-01-10 08:07] VITALS: BP 115/54; PULSE 77; RESP 18; TEMP 35.8; O2SAT 92
[2024-01-10 08:18] VITALS: PULSE 77
[2024-01-10] MEDS: Menthol/Lanolin/Calamine/Znox 113 GM Tube 1 APPLIC TOPICAL ×2 (08:18→21:39)
[2024-01-10] MEDS: Ceftriaxone 1 GM/50 ML BAG IV (08:29)
--- NOTE | 2024-01-10 08:41 | PN.RENAL_ITS ---
Subjective Subjective Follow-up of acute kidney injury secondary to ATN. He remains lethargic, easily arousable, answers questions appropriately. Still NPO. Blood pressure is soft but stable. No respiratory compromise Objective Data Objective Data Vital Signs: Vital Signs Temp Pulse Resp BP Pulse Ox O2 Del Method 96.5 F L 77 18 115/54 L 92 Room Air 01/10/24 08:07 01/10/24 08:18 01/10/24 08:07 01/10/24 08:07 01/10/24 08:07 01/10/24 08:22 Oxygen Delivery Method Room Air Weight: 96.2 kg Body Mass Index (BMI) 28.0 Intake & Output: Intake and Output for Last 24 Hours 01/08/24 01/09/24 01/10/24 23:59 23:59 23:59 Intake Total 2981.48 / 2981.48 1615.00 / 1615.00 1812.5 / 1812.5 Output Total 625 / 775 500 / 500 300 / 300 Balance 2356.48 / 2206.48 1115.00 / 1115.00 1512.5 / 1512.5 Lab / Micro Data Attestation: I reviewed the patient's lab results. 01/10/24 06:09 01/10/24 06:09 Labs: Laboratory Results - last 24 hr 01/09/24 06:12: Diff Path Review Reviewed 01/09/24 08:15: Ammonia 65.0 H 01/10/24 06:09: WBC 15.7 H, RBC 4.40 L, Hgb 13.8, Hct 42.8, MCV 97.3 H, MCH 31.4, MCHC 32.2, RDW Std Deviation 50.5 H, RDW Coeff of Alfonso 16.8 H, Plt Count 89 L, MPV 13.5 H, Immature Gran % (Auto) 0.400, Neut % (Auto) 84.6 H, Lymph % (Auto) 3.3 L, [place] % (Auto) 11.5 H, Eos % (Auto) 0.1, Baso % (Auto) 0.1, A bsolute Neuts (auto) 13.3 H, Absolute Lymphs (auto) 0.52 L, Nucleated RBC % 0.1, PT 28.2 H, INR 2.7, Sodium 144, Potassium 3.1 L, Chloride 103, Carbon Dioxide 22.0, Anion Gap 19 H, BUN 158 H*, Creatinine 4.88 H, Estim Creat Clear Calc 12.79, Est GFR (MDRD) Af Amer 15 L, Est GFR (MDRD) Non-Af 12 L, BUN/Creatinine Ratio 32.4 H, Glucose 148 H, Calcium 8.0 L, Total Bilirubin 1.80 H, AST 196 H, A LT 693 H, Alkaline Phosphatase 68, Total Protein 5.7 L, Albumin 3.2, Globulin 2.5, Albumin/Globulin Ratio 1.3 Radiography Diagnostic Testing: Radiology Impression KUB X-Ray 01/08/24 08:45 IMPRESSION: Moderate small bowel obstruction. Electronically Signed: Wyatt Keyes MD at 8:49 EDT , Physical Exam Const General Appearance: well developed Orientation / Consciousness: lethargic Nutritional Appearance: cachectic HEENT normocephalic Head and Scalp: atraumatic Mouth: dry mucous membranes Neck no lymphadenopathy Resp no use of accessory muscles and clear to auscultation bilaterally GI non-tender Auscultation: normoactive bowel sounds Palpation: soft Skin no rashes or lesions noted Neuro Sensorium / Orientation: lethargic Psych Memory / Cognition: cognition impaired Assessment & Plan Assessment/Plan (1) Acute kidney injury superimposed on stage 2 chronic kidney disease: PLAN: Acute kidney injury secondary to ATN, creatinine finally reached plateau, urine output is fair. That he is still n.p.o. and third spacing is the issue due to low albumin. Plan Continue with IV fluids Add albumin for volume expansion No dialysis available at the [facility] this weekend, patient does not need dialysis either
[2024-01-10] MEDS: Potassium Chloride 10mEq/100mL 10 MEQ/100 ML IV.SOLN. 100 MEQ IV BOLUS ×4 (09:07→12:43)
[2024-01-10 09:34] LABS: Differential Comment SCANNED; Platelet Estimate SLT DEC (ADEQ); Platelet Morphology LARGE
[2024-01-10] MEDS: Albumin Human 25% (100 mL) 25 GM/100 ML BAG IV ×2 (11:02→17:35)
--- NOTE | 2024-01-10 12:19 | PN_ITS ---
Subjective Subjective Patient seen and examined. He is more alert today, and even though he is groggy, he is able to communicate. He was able to tell me his name, where he is and his date of . Review of systems is othewise negative. Cr is down to 4.88, though BUN is further elevated at 158. Objective Data Objective Data Vital Signs: Vital Signs Temp Pulse Resp BP Pulse Ox O2 Del Method 96.5 F L 77 18 115/54 L 92 Room Air 01/10/24 08:07 01/10/24 08:18 01/10/24 08:07 01/10/24 08:07 01/10/24 08:07 01/10/24 08:22 Oxygen Delivery Method Room Air Weight: 212 lb 1.355 oz Body Mass Index (BMI) 28.0 Intake & Output: Intake and Output for Last 24 Hours 01/08/24 01/09/24 01/10/24 23:59 23:59 23:59 Intake Total 2981.48 / 2981.48 1615.00 / 1615.00 2062.5 / 2062.5 Output Total 625 / 775 500 / 500 300 / 300 Balance 2356.48 / 2206.48 1115.00 / 1115.00 1762.5 / 1762.5 Lab / Micro Data 01/10/24 06:09 01/10/24 06:09 Labs: Laboratory Results - last 24 hr 01/10/24 06:09: WBC 15.7 H, RBC 4.40 L, Hgb 13.8, Hct 42.8, MCV 97.3 H, MCH 31.4, MCHC 32.2, RDW Std Deviation 50.5 H, RDW Coeff of Alfonso 16.8 H, Plt Count 89 L, MPV 13.5 H, Immature Gran % (Auto) 0.400, Neut % (Auto) 84.6 H, Lymph % (Auto) 3.3 L, [place] % (Auto) 11.5 H, Eos % (Auto) 0.1, Baso % (Auto) 0.1, A bsolute Neuts (auto) 13.3 H, Absolute Lymphs (auto) 0.52 L, Nucleated RBC % 0.1, Differential Comment SCANNED, Diff Path Review May young, Platelet Estimate SLT DEC, Plt Morphology Comment LARGE, PT 28.2 H, INR 2.7, Sodium 144, Potassium 3.1 L, Chloride 103, Carbon Dioxide 22.0, Anion Gap 19 H, BUN 158 H*, Creatinine 4.88 H, Estim Creat Clear Calc 12.79, Est GFR (MDRD) Af Amer 15 L, Est GFR (MDRD) Non-Af 12 L, BUN/Creatinine Ratio 32.4 H, Glucose 148 H, Calcium 8.0 L, T otal Bilirubin 1.80 H, AST 196 H, ALT 693 H, Alkaline Phosphatase 68, Total Protein 5.7 L, Albumin 3.2, Globulin 2.5, Albumin/Globulin Ratio 1.3 Physical Exam Const alert Constitutional Narrative: frail and weak. He is more communicative today Orientation / Consciousness: lethargic HEENT normocephalic, head/scalp atraumatic, moist oral mucous membranes and oropharynx normal Eyes PERRL and EOMs intact bilaterally Neck no lymphadenopathy and supple Lymph Lymphatic: no lymphadenopathy noted and no lymphedema noted Resp normal respiratory effort, normal air movement and clear to auscultation bilaterally Cardio regular rate, regular rhythm, S1 normal heart sound, S2 normal heart sound and no murmurs GI normal to inspection, nondistended, normoactive bowel sounds, soft to palpation and non-tender Extremity normal capillary refill, no clubbing, cyanosis or edema and no calf tenderness General Extremity: no tenderness to palpation of joints or extremities Skin General Skin Exam: no breakdown Neuro CN's II-XII intact bilaterally Neuro Narrative: very frail, lethargic, though he is able to communicate a bit better today Motor Exam: general weakness Psych Mood & Affect: flat affect Assessment & Plan Assessment/Plan (1) Atrial fibrillation: (2) Acute kidney injury superimposed on stage 2 chronic kidney disease: (3) Transaminitis: (4) Elevated INR: PLAN: Plan #Acute hepatic encephalopathy * Patient still remains lethargic. though he is a bit more alert today. Liver enzymes continue to trend downwards * hepatitis panel was negative. * continue lactulose; will switch to rectal lactulose since he is now NPO * GI on board; patient started on N acetyl cysteine. Now off n-acetyl cysteine. * acetaminophen level was not elevated. * Hold all hepatotoxic medication. * #Acute transaminitis: As above. Resolving. Liver enzymes are trending downwards. #Supratherapeutic INR: Resolved after receiving IV vitamin K. INR today is 2.7. * #BEAN: * Nephrology on board. * Cr has trended down slightly to 4.88. Remains on sodium bicarb drip. * total bilirubin 1.8 * Will monitor creatinine and defer to nephrology about whether to initiate dialysis otherwise. * Kidney function is not improving though, so he is heading towards dialysis. #Anion gap metabolic acidosis: * Likely due to uremia from BEAN. * Bicarb is 22 today; patient on bicarb drip per nephrology. Anion gap is 19. * Should improve as kidney function improves. * Nephrology on board and to decide whether to initiate patient on dialysis. * #COVID-19 infection * symptoms started on 12/25/2023, so patient taken out of precautions on 01/06/2024 * on room air * breathing treatment with bronchodilators. * #Dysphagia * speech therapy on board. * inserted NG tube to start on tube feeds as patient is still NPO due to dysphagia * tube feeds started perr dietitian consult * #Hyperkalemia: resolved #Hypokalemia: K is 3.1 today. Will replaceand trend. #Paroxysmal afib: coumadin on hold due to supratherapeutic iNR. Will monitor. On metoprolol #Hyperlipidemia: simvastatin on hold due to liver injury #GERD: on PPI DVT prophylaxis; not indicated due to supratherapeutic INR. Prognosis: prognosis remains poor. Patient is still very frail, weak and lethargic. COde status: DNRCCA no intubation Charges/Coding Visit Charges Inpatient E&M: 44568 Subs Hosp L2
--- NOTE | 2024-01-10 14:20 | RAD_ITS ---
We are attempting to reach an attending provider to discuss findings. An addendum with communication details will be sent when the communication is complete. HISTORY: to verify NG tube placement. TECHNIQUE: XR Abdomen 1 View. COMPARISON: 01/04/2024. FINDINGS: LINES/TUBES: Nasogastric tube tip in the right lower lobe bronchus. Gaseous distention or dilatation of bowel in the upper abdomen CARDIOMEDIASTINAL BORDERS: Stable cardiomegaly with valve prosthesis and midline sternotomy. LUNGS: Lung apices excluded from the [id number]. Mild bibasilar atelectasis. PLEURA: No layering pleural effusion. RAD/Abdomen Single View (Portable) IMPRESSION: Nasogastric tube tip malpositioned into the right lower lobe bronchus; recommend removal. Gaseous distention dilatation of bowel from ileus or obstruction. Electronically Signed: Mary Ann Haas MD at 15:31 EDT ,
[2024-01-10 15:00] VITALS: BP 128/51; PULSE 106; RESP 18; TEMP 35.8; O2SAT 93
--- NOTE | 2024-01-10 16:20 | RAD_ITS ---
INDICATION: NG placement verification EXAMINATION/TECHNIQUE: X-RAY - XR Abdomen 1 View COMPARISON: 01/10/2024 at 2:25 PM FINDINGS: NG tube is been repositioned and passes below the diaphragm into the stomach. Proximal side port near the GE junction and tube should be advanced 5 to 10 cm. RAD/Abdomen Single View (Portable) IMPRESSION: NG tube in the proximal stomach and should be advanced. Electronically Signed: Cain Bal MD at 18:02 EDT ,
--- NOTE | 2024-01-10 18:20 | RAD_ITS ---
INDICATION: ng tube placement verification EXAMINATION/TECHNIQUE: X-RAY - XR Abdomen 1 View COMPARISON: 01/10/2024 at 4:20 PM FINDINGS: NG tube remains in the proximal stomach with the proximal side port distal to the GE junction. Tube should be advanced 5 to 10 cm. RAD/Abdomen Single View (Portable) IMPRESSION: Persistent proximal position of the NG tube. Electronically Signed: Cain Bal MD at 19:14 EDT ,
--- NOTE | 2024-01-10 19:35 | NURSING ---
NG tube advanced approximately 6 cm at this time based off recommendation of most recent KUB.
--- NOTE | 2024-01-10 20:45 | NURSING ---
Extensive discussion with family at this time regarding NG tube placement, tube feedings, and their frustration with communication. Educated on the need for accurate placement of NG tube prior to initiating tube feedings. Informed that another KUB has just now been ordered following advancement of tube. Informed that when KUB results, the night hospitalist will be notified. Questions answered; family expresses appreciation.
--- NOTE | 2024-01-10 21:02 | RAD_ITS ---
INDICATION: NG placement EXAMINATION/TECHNIQUE: X-RAY - XR Abdomen 1 View COMPARISON: 01/08/2024, 03/11/2024 at 6:25 PM FINDINGS: NG tube remains in the proximal stomach with the proximal side port near the GE junction. Persistent dilatation of small bowel loops similar to prior studies. RAD/Abdomen Single View (Portable) IMPRESSION: Proximal position of the NG tube which should be advanced 10 to 15 cm. Persistent small bowel dilatation consistent with small bowel obstruction. Electronically Signed: Cain Bal MD at 22:04 EDT ,
[2024-01-10 21:34] VITALS: BP 128/56; PULSE 82; RESP 18; TEMP 36.5; O2SAT 92
--- NOTE | 2024-01-10 22:12 | PCM.HOSP.N ---
Hospitalist Note Contacted by RN as having difficulties with NGT placement and concerns about abdominal distention. Reviewed KUBs and in read mention of concern ileus versus bowel obstruction. Requested repeat KUB and requested hold on GT feeds which was planned to be initiated. KUB obtained demonstrating findings concerning for SBO. Dr. Bean consulted and notified of patient, will add IV PPI, continue IVFs per Nephrology, continue to attempt NGT placement for decompression, plan repeat KUB in AM.
[2024-01-10] MEDS: Pantoprazole Sodium 40 MG in 0.9% Normal Saline (100mL MB+) 100 ML 330 MG IV (22:39)
[2024-01-10] MEDS: 0.9% Saline Lock 10 ML Syringe IV (22:43)
--- NOTE | 2024-01-10 22:45 | RAD_ITS ---
INDICATION: verification of NG placement EXAMINATION/TECHNIQUE: X-RAY - XR Abdomen 1 View COMPARISON: 03/11/2024 at 8:53 PM FINDINGS: NG tube remains in proximal position with the proximal side port minimally distal to the GE junction. RAD/Abdomen Single View (Portable) IMPRESSION: Proximal position of the NG tube which should be advanced 10 to 15 cm. Electronically Signed: Cain Bal MD at 23:50 EDT ,
--- NOTE | 2024-01-10 23:57 | NURSING ---
Spoke with Dr. Polk at this time. Notified her that most recent KUB is back. She states to advance NG tube 10 cm and then get another KUB. States will let day team decide on TPN. SPENCER Parks updated.
--- NOTE | 2024-01-11 00:15 | RAD_ITS ---
INDICATION: NG PLACEMENT EXAMINATION/TECHNIQUE: X-RAY - Supine AP view of the lower chest and upper abdomen. COMPARISON: 01/10/2024. FINDINGS: Enteric tube side-port and distal tip are distal to the GE junction within the proximal stomach. BOWEL GAS PATTERN: Again seen are dilated loops of small bowel which may represent small bowel obstruction. CALCIFICATIONS: No abnormal calcifications identified. LOWER CHEST: Cardiomegaly. BONES AND SOFT TISSUES: No acute abnormality. RAD/Abdomen Single View (Portable) IMPRESSION: Enteric tube side-port and distal tip are distal to the GE junction within the proximal stomach. Electronically Signed: Yuri Johnston DO at 1:33 EDT ,
[2024-01-11] MEDS: Albumin Human 25% (100 mL) 25 GM/100 ML BAG IV ×2 (01:40→11:27)
[2024-01-11 03:25] VITALS: BP 126/86; PULSE 76; RESP 18; TEMP 36.6; O2SAT 94
[2024-01-11 04:07] VITALS: BMI 28.3
--- NOTE | 2024-01-11 06:30 | RAD_ITS ---
INDICATION: SBO EXAMINATION/TECHNIQUE: X-RAY - Supine AP view. COMPARISON: 01/11/2024 at 12:14 AM. FINDINGS: BOWEL GAS PATTERN: Enteric tube is stable. Stable dilated loops of small bowel. No significant stool retention. CALCIFICATIONS: No abnormal calcifications identified. BONES AND SOFT TISSUES: No acute abnormality. RAD/Abdomen Single View (Portable) IMPRESSION: Stable dilated loops of small bowel consistent with small bowel obstruction. Electronically Signed: Yuri Johnston DO at 7:57 EDT ,
[2024-01-11 07:38] LABS: Absolute Lymphocyte Count 0.49 X10^3/uL (0.83-4.51); Absolute Neutrophil Count 12.1 X10^3/uL (2.0-7.7); Basophil# 0.01 X10^3/uL; Basophil% 0.1 % (0-1); Hematocrit 42.9 % (40-54); Hemoglobin 13.6 g/dL (13.0-16.5); Lymphocyte # 0.49 X10^3/ul (0.83-4.51); Lymphocyte % 3.4 % (19-41); Mean Corp Hgb Conc 31.7 g/dL (32-36); Mean Corpuscular Hgb 31.1 pg (27.0-32.0); Mean Corpuscular Volume 98.2 fL (80-94); Monocyte# 1.63 X10^3/uL; Monocyte% 11.4 % (0-10); NRBC Flagged by Analyzer 0.2 % (0-5); Neutrophil # 12.06 X10^3/uL (2.7-7.7); Neutrophil % 84.6 % (47-70); POSITIVE COUNT YES; POSITIVE DIFFERENTIAL YES; Platelet Count 70 K/mm3 (150-450); RBC Distribution Width CV 17.2 % (11.6-14.6); RBC Distribution Width SD 52.1 fl (35.1-43.9); Red Blood Count 4.37 M/mm3 (4.6-6.2); White Blood Count 14.3 K/mm3 (4.4-11.0)
[2024-01-11 07:41] LABS: Differential Indicated SCAN CRITERIA MET
[2024-01-11 07:51] LABS: International Normalized Ratio 2.8; Prothrombin Time (Protime)PT. 29.5 SECONDS (11.7-14.9)
[2024-01-11] MEDS: Pantoprazole Sodium 40 MG in 0.9% Normal Saline (100mL MB+) 100 ML 330 MG IV (08:18)
[2024-01-11] MEDS: Menthol/Lanolin/Calamine/Znox 113 GM Tube 1 APPLIC TOPICAL (08:21)
[2024-01-11] MEDS: Ceftriaxone 1 GM/50 ML BAG IV (08:21)
[2024-01-11] MEDS: Dextrose 5%/0.9% NaCl 1,000 ML 125 ML IV (08:22)
[2024-01-11 08:26] VITALS: BP 110/51; PULSE 101; RESP 17; TEMP 35.8; O2SAT 91
[2024-01-11 08:40] LABS: ALB/GLOB Ratio 1.4 RATIO (0.9-2.4); AST(SGOT) 137 U/L (15-37); Alanine Aminotransfer ALT/SGPT 519 U/L (16-61); Albumin, Serum 3.4 g/dL (3.2-5.0); Alkaline Phosphatase 64 U/L (45-117); Anion Gap 19 (5-15); BUN 158 mg/dL (7-18); BUN/Creat Ratio 34.3 RATIO (10-20); Calcium,Total 8.3 mg/dL (8.5-10.1); Chloride 104 mmol/L (98-107); EST Glomerular Filtration Rate 13 mL/min (>60); Est Glom Filt Rate - Afr Amer 16 mL/min (>60); Estimated Creatinine Clearance 13.66 ml/min; Globulin 2.5 g/dL (2.2-4.2); Glucose 124 mg/dL (74-106); Potassium 3.2 mmol/L (3.5-5.1); Protein, Total 5.9 g/dL (6.4-8.2); Sodium Level 145 mmol/L (136-145)
[2024-01-11 09:00] VITALS: BP 110/51; PULSE 84; RESP 18; TEMP 35.8; O2SAT 92
--- NOTE | 2024-01-11 09:21 | CT_ITS ---
ACR Level 3 findings have been noted. An addendum which confirms receipt of the report will follow. HISTORY: SBO. TECHNIQUE: Helically acquired images were obtained of the abdomen and pelvis without oral or IV contrast. A radiation dose optimization technique was used for this scan. 578 images. COMPARISON: XR same day. FINDINGS: LOWER CHEST: Cardiomegaly with aortic valve prosthesis and midline sternotomy. Right greater than left pleural effusions with bilateral lower lobe opacities. Calcified right lower lobe granulomas. BOWEL: Nasogastric tube in the proximal stomach. Small bowel nondilated. Appendix not visualized. Mild colonic diverticulosis without focal pericolonic inflammatory change. Mild air closely associated with the proximal ascending colonic wall. Gaseous distention of the colon with tapering distally. PERITONEUM: Punctate free air anteriorly. Mild free fluid. LIVER/SPLEEN: Nonenlarged. GALLBLADDER/BILIARY TREE: Gallbladder present. PANCREAS/ADRENAL GLANDS: Unremarkable. KIDNEYS AND URETERS: No nephrolithiasis or obstructing ureteral calculus. VESSELS: 3.3 cm infrarenal abdominal aortic aneurysm without acute retroperitoneal hematoma. Atherosclerosis of the abdominal aorta and its major branches. PELVIC ORGANS: Lobulated prostate gland with impression on the bladder base. Presacral edema. ABDOMINAL WALL: Tiny fat-containing umbilical hernia with trace air. Moderate dependent subcutaneous edema. BONES: Degenerative change. CT/Abdomen/Pelvis without Cont IMPRESSION: Mild free air with suspicion for mild pneumatosis of the proximal ascending colonic wall, suspicious for bowel ischemia with perforation and/or peritonitis absenting recent history of surgery/intervention. Mild colonic ileus/pseudoobstruction. No evidence for small bowel obstruction. Mild pleural effusions with bibasilar atelectasis or pneumonia. Mild ascites. Mild infrarenal abdominal aortic aneurysm without acute rupture. Electronically Signed: Mary Ann Haas MD at 10:36 EDT ,
--- NOTE | 2024-01-11 09:51 | PN.RENAL_ITS ---
Subjective Subjective Follow-up on acute kidney injury. Remains quite lethargic, attempted to place NG tube, unable to pass and was found to have small bowel obstruction. Made little bit more urine. Still on nasal cannula. Surgery has been consulted, patient is to have CT scan done. Objective Data Objective Data Vital Signs: Vital Signs Temp Pulse Resp BP Pulse Ox O2 Del Method 96.4 F L 101 H 17 110/51 L 91 Room Air 01/11/24 08:26 01/11/24 08:26 01/11/24 08:26 01/11/24 08:26 01/11/24 08:26 01/11/24 08:30 Oxygen Delivery Method Room Air Weight: 97.6 kg Body Mass Index (BMI) 28.3 Intake & Output: Intake and Output for Last 24 Hours 01/09/24 01/10/24 01/11/24 23:59 23:59 23:59 Intake Total 1615.00 / 1615.00 4450.42 / 4450.42 1260 / 1260 Output Total 500 / 500 900 / 900 250 / 250 Balance 1115.00 / 1115.00 3550.42 / 3550.42 1010 / 1010 Lab / Micro Data Attestation: I reviewed the patient's lab results. 01/11/24 05:55 01/11/24 05:55 Labs: Laboratory Results - last 24 hr 01/11/24 05:55: WBC 14.3 H, RBC 4.37 L, Hgb 13.6, Hct 42.9, MCV 98.2 H, MCH 31.1, MCHC 31.7 L, RDW Std Deviation 52.1 H, RDW Coeff of Alfonso 17.2 H, Plt Count 70 L, MPV 14.0 H, Immature Gran % (Auto) 0.500, Neut % (Auto) 84.6 H, Lymph % (Auto) 3.4 L, [place] % (Auto) 11.4 H, Eos % (Auto) 0.0, Baso % (Auto) 0.1, A bsolute Neuts (auto) 12.1 H, Absolute Lymphs (auto) 0.49 L, Nucleated RBC % 0.2, Differential Comment , Diff Path Review September, PT 29.5 H, INR 2.8, Sodium 145, Potassium 3.2 L, Chloride 104, Carbon Dioxide 22.0, Anion Gap 19 H, BUN 158 H*, Creatinine 4.60 H, Estim Creat Clear Calc 13.66, Est GFR (MDRD) Af Amer 16 L , Est GFR (MDRD) Non-Af 13 L, BUN/Creatinine Ratio 34.3 H, Glucose 124 H, C alcium 8.3 L, Total Bilirubin 2.30 H, AST 137 H, ALT 519 H, Alkaline Phosphatase 64, Total Protein 5.9 L, Albumin 3.4, Globulin 2.5, Albumin/Globulin Ratio 1.4 Radiography Diagnostic Testing: Radiology Impression KUB X-Ray 01/10/24 14:20 IMPRESSION: Nasogastric tube tip malpositioned into the right lower lobe bronchus; recommend removal. Gaseous distention dilatation of bowel from ileus or obstruction. Electronically Signed: Mary Ann Haas MD at 15:31 EDT , ADDENDUM: 01/10/24 1545 IMPRESSION: Nasogastric tube tip malpositioned into the right lower lobe bronchus; recommend removal. Gaseous distention dilatation of bowel from ileus or obstruction. N.B. : The above Results were Read Back by Mary Ann Haas MD to Gloria Ortega RN, and understanding confirmed on 01/10/2024 15:38:53 (ET). Electronically Signed: Mary Ann Haas MD at 15:31 EDT , KUB X-Ray 01/10/24 16:20 IMPRESSION: NG tube in the proximal stomach and should be advanced. Electronically Signed: Cain Bal MD at 18:02 EDT , KUB X-Ray 01/10/24 18:20 IMPRESSION: Persistent proximal position of the NG tube. Electronically Signed: Cain Bal MD at 19:14 EDT , KUB X-Ray 01/10/24 21:02 IMPRESSION: Proximal position of the NG tube which should be advanced 10 to 15 cm. Persistent small bowel dilatation consistent with small bowel obstruction. Electronically Signed: Cain Bal MD at 22:04 EDT , KUB X-Ray 01/10/24 22:45 IMPRESSION: Proximal position of the NG tube which should be advanced 10 to 15 cm. Electronically Signed: Cain Bal MD at 23:50 EDT , KUB X-Ray 01/11/24 00:15 IMPRESSION: Enteric tube side-port and distal tip are distal to the GE junction within the proximal stomach. Electronically Signed: Yuri Johnston DO at 1:33 EDT , KUB X-Ray 01/11/24 06:30 IMPRESSION: Stable dilated loops of small bowel consistent with small bowel obstruction. Electronically Signed: Yuri Johnston DO at 7:57 EDT , Physical Exam Const no apparent distress and average body habitus Orientation / Consciousness: lethargic HEENT normocephalic Head and Scalp: atraumatic Mouth: dry mucous membranes Neck no lymphadenopathy Resp no use of accessory muscles and clear to auscultation bilaterally Cardio Rhythm: abnormal rhythm irregularly irregular GI Auscultation: hypoactive bowel sounds Skin no rashes or lesions noted Psych Memory / Cognition: cognition impaired Assessment & Plan Assessment/Plan (1) Acute kidney injury superimposed on stage 2 chronic kidney disease: PLAN: Creatinine started to improve with volume expansion. Profound azotemia could be due to GI bleed, he has NG tube draining coffee-ground material. Also due to small bowel obstruction he might have third spacing there. Plan Continue with maintenance IV Another set of albumin for volume expansion No dialysis to
--- NOTE | 2024-01-11 10:04 | CON.PCM.SX_ITS ---
Assessment & Plan Assessment/Plan (1) Ileus: PLAN: Patient has ileus versus small bowel obstruction on x-ray. I am ordering a CT scan to evaluate further. The patient also has elevated white count unsure if the ileus is due to infective process elsewhere in the body or if it is resultant of a small bowel obstruction. The patient has never had any intra- abdominal surgeries as far as his and child were able to tell me. Blas Bean MD Pager: [facility] [address] [place] [address], [address] [place] [address] Office: HPI Consult Data Date of Consult: 01/11/24 HPI Narrative HPI Narrative: LATONIA MEDINA, is a 88 M who presents with several issues. The patient is admitted for possible encephalopathy the and I was consulted for ileus versus obstruction. Yesterday they were planning on starting tube feeds but the x-ray from NG placement showed distended small bowel. [facility] Medical History CVA (cerebral vascular accident) History of bicuspid aortic valve RBBB (right bundle branch block) Abdominal aortic aneurysm without rupture Thoracic aortic aneurysm without rupture Chronic diastolic heart failure Atherosclerotic heart disease of [place] coronary artery without angina pectoris Atrial flutter, chronic Essential hypertension Ataxia Inguinal hernia Atrial fibrillation and flutter TIA (transient ischemic attack) Hyperlipidemia Home Medications ?Medication ?Instructions ?Recorded ?Last Taken ?Type multivitamin,cp-[id number] 27 0.5 tab PO BID supplement 02/15/14 07/17/20 History mg-0.4 mg tablet warfarin 2 mg tablet 2 mg PO SUTUTHSA blood thinner 05/06/17 07/16/20 History simvastatin 20 mg tablet 20 mg PO QHS cholesterol 07/17/20 07/16/20 History warfarin 1 mg tablet 1 mg PO MOWEFR blood thinner 07/17/20 07/14/20 History metoprolol tartrate 25 mg tablet 12.5 mg (1/2 x 25 mg) PO BID heart 08/14/22 Unknown Rx #180 tabs Handicap Placard #1 ea 09/30/22 Unknown Rx spironolactone 25 mg tablet 25 mg PO DAILY diuretic #90 tabs 09/22/23 Unknown Rx furosemide 40 mg tablet 60 mg (1.5 x 40 mg) PO BID 12/22/23 Unknown Rx diuretic #270 tabs Allergy/AdvReac Type Severity Reaction Status Date / Time codeine Allergy Severe hives Verified 01/04/24 12:20 Family History Father Myocardial infarction, Onset Age: 82 Brother Heart disease Surgical History History of right and left heart catheterization (LHC) (~07/25/20) History of tonsillectomy History of inguinal hernia repair History of aortic valve replacement with bioprosthetic valve (~08/10/07) Social History Smoking Status: Never smoker alcohol intake: never substance use type: does not use caffeine: Yes Type: tea Number of servings: 6 ROS Review of Systems ROS Unobtainable: due to mental status Physical Exam Const no apparent distress Orientation / Consciousness: confused HEENT normocephalic Eyes PERRL Resp normal respiratory effort GI soft to palpation Inspection: abdominal distention Lab / Micro Data 01/11/24 05:55 01/11/24 05:55 Labs: Laboratory Results - last 24 hr 01/11/24 05:55: WBC 14.3 H, RBC 4.37 L, Hgb 13.6, Hct 42.9, MCV 98.2 H, MCH 31.1, MCHC 31.7 L, RDW Std Deviation 52.1 H, RDW Coeff of Alfonso 17.2 H, Plt Count 70 L, MPV 14.0 H, Immature Gran % (Auto) 0.500, Neut % (Auto) 84.6 H, Lymph % (Auto) 3.4 L, [place] % (Auto) 11.4 H, Eos % (Auto) 0.0, Baso % (Auto) 0.1, A bsolute Neuts (auto) 12.1 H, Absolute Lymphs (auto) 0.49 L, Nucleated RBC % 0.2, Differential Comment , Diff Path Review September foll, PT 29.5 H, INR 2.8, Sodium 145, Potassium 3.2 L, Chloride 104, Carbon Dioxide 22.0, Anion Gap 19 H, BUN 158 H*, Creatinine 4.60 H, Estim Creat Clear Calc 13.66, Est GFR (MDRD) Af Amer 16 L , Est GFR (MDRD) Non-Af 13 L, BUN/Creatinine Ratio 34.3 H, Glucose 124 H, C alcium 8.3 L, Total Bilirubin 2.30 H, AST 137 H, ALT 519 H, Alkaline Phosphatase 64, Total Protein 5.9 L, Albumin 3.4, Globulin 2.5, Albumin/Globulin Ratio 1.4 Imaging Radiology Impression KUB X-Ray 01/10/24 14:20 IMPRESSION: Nasogastric tube tip malpositioned into the right lower lobe bronchus; recommend removal. Gaseous distention dilatation of bowel from ileus or obstruction. Electronically Signed: Mary Ann Haas MD at 15:31 EDT , ADDENDUM: 01/10/24 1545 IMPRESSION: Nasogastric tube tip malpositioned into the right lower lobe bronchus; recommend removal. Gaseous distention dilatation of bowel from ileus or obstruction. N.B. : The above Results were Read Back by Mary Ann Haas MD to Gloria Ortega RN, and understanding confirmed on 01/10/2024 15:38:53 (ET). Electronically Signed: Mary Ann Haas MD at 15:31 EDT , KUB X-Ray 01/10/24 16:20 IMPRESSION: NG tube in the proximal stomach and should be advanced. Electronically Signed: Cain Bal MD at 18:02 EDT , KUB X-Ray 01/10/24 18:20 IMPRESSION: Persistent proximal position of the NG tube. Electronically Signed: Cain Bal MD at 19:14 EDT , KUB X-Ray 01/10/24 21:02 IMPRESSION: Proximal position of the NG tube which should be advanced 10 to 15 cm. Persistent small bowel dilatation consistent with small bowel obstruction. Electronically Signed: Cain Bal MD at 22:04 EDT , KUB X-Ray 01/10/24 22:45 IMPRESSION: Proximal position of the NG tube which should be advanced 10 to 15 cm. Electronically Signed: Cain Bal MD at 23:50 EDT , KUB X-Ray 01/11/24 00:15 IMPRESSION: Enteric tube side-port and distal tip are distal to the GE junction within the proximal stomach. Electronically Signed: Yuri Johnston DO at 1:33 EDT , KUB X-Ray 01/11/24 06:30 IMPRESSION: Stable dilated loops of small bowel consistent with small bowel obstruction. Electronically Signed: Yuri Johnston DO at 7:57 EDT ,
--- NOTE | 2024-01-11 11:27 | PN_ITS ---
Progress Note CT findings noted. I had a long discussion with the patient's family in the room. I discussed that the patient had free air and signs of ischemia in the right colon. I discussed this with him in detail and I discussed their options. I discussed surgery which would entail FFP and laparotomy for right colonic resection. I discussed that he was high risk due to his kidney failure and other comorbidities. Patient had COVID recently and his dehydration likely resulted in this ischemia to the right colon as well as his liver failure and kidney injury. I also discussed hospice care with the patient's family. At this time the patient's family elects not to proceed with surgery and would like to change his CODE STATUS to DNR CC and discuss hospice care with the palliative care team. This seems reasonable as the patient is high risk for surgery. Hospice team will be consulted. Blas Bean MD Pager: [facility] [address] [place] [address], [address] [place] [address] Office:
--- NOTE | 2024-01-11 11:32 | PN_ITS ---
Subjective Subjective Patient seen and examined. He is very frail and lethargic. Family requested the tube feeds to be started yesterday. Initial attempt to pass an NG tube was unsuccessful as it ended up in the right lower bronchus. Patient had multiple attempts by nursing to try to pass the NG tube. KUB showed concern for ileus versus obstruction. It is likely IBS because patient has been having diarrhea and this may be the cause of the ileus. General surgery consulted. Objective Data Objective Data Vital Signs: Vital Signs Temp Pulse Resp BP Pulse Ox O2 Del Method 96.4 F L 101 H 17 110/51 L 91 Room Air 01/11/24 08:26 01/11/24 08:26 01/11/24 08:26 01/11/24 08:26 01/11/24 08:26 01/11/24 08:30 Oxygen Delivery Method Room Air Weight: 215 lb 2.738 oz Body Mass Index (BMI) 28.3 Intake & Output: Intake and Output for Last 24 Hours 01/09/24 01/10/24 01/11/24 23:59 23:59 23:59 Intake Total 1615.00 / 1615.00 4450.42 / 4450.42 1260 / 1260 Output Total 500 / 500 900 / 900 250 / 250 Balance 1115.00 / 1115.00 3550.42 / 3550.42 1010 / 1010 Lab / Micro Data 01/11/24 05:55 01/11/24 05:55 Labs: Laboratory Results - last 24 hr 01/11/24 05:55: WBC 14.3 H, RBC 4.37 L, Hgb 13.6, Hct 42.9, MCV 98.2 H, MCH 31.1, MCHC 31.7 L, RDW Std Deviation 52.1 H, RDW Coeff of Alfonso 17.2 H, Plt Count 70 L, MPV 14.0 H, Immature Gran % (Auto) 0.500, Neut % (Auto) 84.6 H, Lymph % (Auto) 3.4 L, [place] % (Auto) 11.4 H, Eos % (Auto) 0.0, Baso % (Auto) 0.1, A bsolute Neuts (auto) 12.1 H, Absolute Lymphs (auto) 0.49 L, Nucleated RBC % 0.2, Differential Comment , Diff Path Review May foll, PT 29.5 H, INR 2.8, Sodium 145, Potassium 3.2 L, Chloride 104, Carbon Dioxide 22.0, Anion Gap 19 H, BUN 158 H*, Creatinine 4.60 H, Estim Creat Clear Calc 13.66, Est GFR (MDRD) Af Amer 16 L , Est GFR (MDRD) Non-Af 13 L, BUN/Creatinine Ratio 34.3 H, Glucose 124 H, C alcium 8.3 L, Total Bilirubin 2.30 H, AST 137 H, ALT 519 H, Alkaline Phosphatase 64, Total Protein 5.9 L, Albumin 3.4, Globulin 2.5, Albumin/Globulin Ratio 1.4 Radiography Diagnostic Testing: Radiology Impression KUB X-Ray 01/10/24 14:20 IMPRESSION: Nasogastric tube tip malpositioned into the right lower lobe bronchus; recommend removal. Gaseous distention dilatation of bowel from ileus or obstruction. Electronically Signed: Mary Ann Haas MD at 15:31 EDT , ADDENDUM: 01/10/24 1545 IMPRESSION: Nasogastric tube tip malpositioned into the right lower lobe bronchus; recommend removal. Gaseous distention dilatation of bowel from ileus or obstruction. N.B. : The above Results were Read Back by Mary Ann Haas MD to Gloria Ortega RN, and understanding confirmed on 01/10/2024 15:38:53 (ET). Electronically Signed: Mary Ann Haas MD at 15:31 EDT , KUB X-Ray 01/10/24 16:20 IMPRESSION: NG tube in the proximal stomach and should be advanced. Electronically Signed: Cain Bal MD at 18:02 EDT , KUB X-Ray 01/10/24 18:20 IMPRESSION: Persistent proximal position of the NG tube. Electronically Signed: Cain Bal MD at 19:14 EDT , KUB X-Ray 01/10/24 21:02 IMPRESSION: Proximal position of the NG tube which should be advanced 10 to 15 cm. Persistent small bowel dilatation consistent with small bowel obstruction. Electronically Signed: Cain Bal MD at 22:04 EDT , KUB X-Ray 01/10/24 22:45 IMPRESSION: Proximal position of the NG tube which should be advanced 10 to 15 cm. Electronically Signed: Cain Bal MD at 23:50 EDT , KUB X-Ray 01/11/24 00:15 IMPRESSION: Enteric tube side-port and distal tip are distal to the GE junction within the proximal stomach. Electronically Signed: Yuri Johnston DO at 1:33 EDT , KUB X-Ray 01/11/24 06:30 IMPRESSION: Stable dilated loops of small bowel consistent with small bowel obstruction. Electronically Signed: Yuri Johnston DO at 7:57 EDT , Abdomen/Pelvis CT 01/11/24 09:21 IMPRESSION: Mild free air with suspicion for mild pneumatosis of the proximal ascending colonic wall, suspicious for bowel ischemia with perforation and/or peritonitis absenting recent history of surgery/intervention. Mild colonic ileus/pseudoobstruction. No evidence for small bowel obstruction. Mild pleural effusions with bibasilar atelectasis or pneumonia. Mild ascites. Mild infrarenal abdominal aortic aneurysm without acute rupture. Electronically Signed: Mary Ann Haas MD at 10:36 EDT , ADDENDUM: 01/11/24 1049 IMPRESSION: Mild free air with suspicion for mild pneumatosis of the proximal ascending colonic wall, suspicious for bowel ischemia with perforation and/or peritonitis absenting recent history of surgery/intervention. Mild colonic ileus/pseudoobstruction. No evidence for small bowel obstruction. Mild pleural effusions with bibasilar atelectasis or pneumonia. Mild ascites. Mild infrarenal abdominal aortic aneurysm without acute rupture. N.B. : Graciela Medina RN, confirmed on 01/11/2024 10:42:58 (ET) that the healthcare facility has received the radiology report. Electronically Signed: Mary Ann Haas MD at 10:36 EDT , Physical Exam Const alert Constitutional Narrative: frail and weak. able to communicate a bit. Orientation / Consciousness: lethargic HEENT normocephalic, head/scalp atraumatic, moist oral mucous membranes and oropharynx normal Eyes PERRL and EOMs intact bilaterally Neck no lymphadenopathy and supple Lymph Lymphatic: no lymphadenopathy noted and no lymphedema noted Resp normal respiratory effort, normal air movement and clear to auscultation bilaterally Cardio regular rate, regular rhythm, S1 normal heart sound, S2 normal heart sound and no murmurs GI GI Narrative: moderate abdominal distension, minimal tenderness, no guarding or rebound tenderness. Extremity normal capillary refill, no clubbing, cyanosis or edema and no calf tenderness General Extremity: no tenderness to palpation of joints or extremities Skin Skin Narrative: no visible jaundice General Skin Exam: no breakdown Neuro CN's II-XII intact bilaterally Neuro Narrative: very frail, lethargic, Motor Exam: general weakness Psych Mood & Affect: flat affect Assessment & Plan Assessment/Plan (1) Atrial fibrillation: (2) Acute kidney injury superimposed on stage 2 chronic kidney disease: (3) Transaminitis: (4) Elevated INR: PLAN: Plan #Acute hepatic encephalopathy * Patient still remains lethargic. though he is a bit more alert today. Liver enzymes continue to trend downwards * hepatitis panel was negative. * continue lactulose; will switch to rectal lactulose since he is now NPO * GI on board; patient started on N acetyl cysteine. Now off n-acetyl cysteine. * acetaminophen level was not elevated. * Hold all hepatotoxic medication. * #COlonic ileus with possible peritonitis * There were multiple attempts at passing an NG tube yesterday. * KUB done showed evidence of obstruction versus ileitis in the intestines. * General surgery consulted and CT of the abdomen and pelvis done today showed mild free air with suspicion for mild pneumatosis of the proximal ascending colon wall suspicious of bowel ischemia with perforation and/or peritonitis and mild colonic ileus versus pseudoobstruction * General surgery reviewed the patient and discussed with family. Family does not want any surgical intervention. Hospice consulted * #Probable mild pleural effusion with bibasilar atelectasis or pneumonia * CT of the abdomen and pelvis showed evidence of mild pleural effusions and bibasilar atelectasis and/or pneumonia. His white cell count has been trending upwards to. * Elevated white cell count may also be due to the possible peritonitis. Patient started on IV vancomycin and Zosyn. * Hospice consulted and await recs. If they opt for hospice and will discontinue IV antibiotics. * #Acute transaminitis: As above. Resolving. Liver enzymes continue to trend downwards. Total bilirubin today is up to 2.3. AST and ALT continue to trend downwards #Supratherapeutic INR: Resolved after receiving IV vitamin K. INR today is 2.8. * #BEAN: * Nephrology on board. * Cr has trended down further today to 4.6. Remains on sodium bicarb drip. * Will monitor creatinine and defer to nephrology about whether to initiate dialysis otherwise. * Kidney function is not improving though, so he is heading towards dialysis. #Anion gap metabolic acidosis: * Likely due to uremia from BEAN. * Bicarb is 22 today; patient on bicarb drip per nephrology. Anion gap is 19. * Should improve as kidney function improves. * Nephrology on board and to decide whether to initiate patient on dialysis. * #COVID-19 infection * symptoms started on 12/25/2023, so patient taken out of precautions on 01/06/2024 * on room air * breathing treatment with bronchodilators. * #Dysphagia * speech therapy on board. * inserted NG tube to start on tube feeds as patient is still NPO due to dysphagia * tube feeds started perr dietitian consult * #Hyperkalemia: resolved #Hypokalemia: K is 3.2 today. Will replaceand trend. #Paroxysmal afib: coumadin on hold due to supratherapeutic iNR. Will monitor. On metoprolol #Hyperlipidemia: simvastatin on hold due to liver injury #GERD: on PPI DVT prophylaxis; not indicated due to supratherapeutic INR. Prognosis: prognosis remains poor. Patient is still very frail, weak and lethargic. Family had a long discussion with general surgery today and did not want any surgical intervention. They wish to consider continue CODE STATUS to DNR CC. Hospice consulted per family request. COde status: DNRCCA no intubation Charges/Coding Visit Charges Inpatient E&M: 95944 Subs Hosp L3
[2024-01-11] MEDS: Piperacil/Tazobactam 3.375 GM in 0.9% Normal Saline (50mL MB+) 50 ML IV (11:44)
[2024-01-11 15:00] VITALS: BP 118/59; PULSE 88; RESP 18; TEMP 35.8; O2SAT 92
--- NOTE | 2024-01-11 17:15 | NURSING ---
This RN called and gave report to SPENCER Couch at hospice [facility].
--- NOTE | 2024-01-11 18:32 | DS.PCM_ITS ---
Providers Date of Admission: 01/04/24 Date of Discharge: 01/11/24 Primary Care Physician: Dr. Yuri Arteaga MD Consultations 01/04/24 17:42 Consult: Nephrology Routine Consulting Provider: Anabelle Gary Reason for Consult: Worsened renal function w/ HF and covid EMERGENT Consult: No Notified: Yes Date Notified: 01/04/24 Time Notified: 17:08 Method of Notification: Answering Service 01/06/24 08:14 Consult: Gastroenterology Routine Consulting Provider: [facility] Reason for Consult: acute transaminitis, etiology unclear EMERGENT Consult: No MD Notified: Yes Date Notified: 01/06/24 Time Notified: 08:14 Method of Notification: Text 01/10/24 22:09 Consult: General Surgery Routine Consulting Provider: Blas Bean Reason for Consult: SBO EMERGENT Consult: No Notified: Yes Date Notified: 01/10/24 Time Notified: 22:09 Method of Notification: Text 01/11/24 11:29 Consult: Hospice / Palliative Care Routine Consulting Provider: [facility] Reason for Consult: BEAN, peritonitis, encephalopathy EMERGENT Consult: No Notified: Yes Date Notified: 01/11/24 Time Notified: 11:51 Method of Notification: Answering Service Reason For Visit: COVID, BEAN, HYPONATREMIA Diagnosis Discharge Diagnosis (1) Atrial fibrillation: Status: Inactive Code(s): I48.91 - Unspecified atrial fibrillation (2) Acute kidney injury superimposed on stage 2 chronic kidney disease: Status: Acute Code(s): N17.9 - Acute kidney failure, unspecified; N18.2 - Chronic kidney disease, stage 2 (mild) (3) Transaminitis: Status: Acute Code(s): R74.01 - Elevation of levels of liver transaminase levels (4) Elevated INR: Status: Acute Code(s): R79.1 - Abnormal coagulation profile Plan #Acute hepatic encephalopathy * Patient still remains lethargic. though he is a bit more alert today. Liver enzymes continue to trend downwards * hepatitis panel was negative. * continue lactulose; will switch to rectal lactulose since he is now NPO * GI on board; patient started on N acetyl cysteine. Now off n-acetyl cysteine. * acetaminophen level was not elevated. * Hold all hepatotoxic medication. * #COlonic ileus with possible peritonitis * There were multiple attempts at passing an NG tube yesterday. * KUB done showed evidence of obstruction versus ileitis in the intestines. * General surgery consulted and CT of the abdomen and pelvis done today showed mild free air with suspicion for mild pneumatosis of the proximal ascending colon wall suspicious of bowel ischemia with perforation and/or peritonitis and mild colonic ileus versus pseudoobstruction * General surgery reviewed the patient and discussed with family. Family does not want any surgical intervention. Hospice consulted * #Probable mild pleural effusion with bibasilar atelectasis or pneumonia * CT of the abdomen and pelvis showed evidence of mild pleural effusions and bibasilar atelectasis and/or pneumonia. His white cell count has been trending upwards to. * Elevated white cell count may also be due to the possible peritonitis. Patient started on IV vancomycin and Zosyn. * Hospice consulted and await recs. If they opt for hospice and will discontinue IV antibiotics. * #Acute transaminitis: As above. Resolving. Liver enzymes continue to trend downwards. Total bilirubin today is up to 2.3. AST and ALT continue to trend downwards #Supratherapeutic INR: Resolved after receiving IV vitamin K. INR today is 2.8. * #BEAN: * Nephrology on board. * Cr has trended down further today to 4.6. Remains on sodium bicarb drip. * Will monitor creatinine and defer to nephrology about whether to initiate dialysis otherwise. * Kidney function is not improving though, so he is heading towards dialysis. #Anion gap metabolic acidosis: * Likely due to uremia from BEAN. * Bicarb is 22 today; patient on bicarb drip per nephrology. Anion gap is 19. * Should improve as kidney function improves. * Nephrology on board and to decide whether to initiate patient on dialysis. * #COVID-19 infection * symptoms started on 12/25/2023, so patient taken out of precautions on 01/06/2024 * on room air * breathing treatment with bronchodilators. * #Dysphagia * speech therapy on board. * inserted NG tube to start on tube feeds as patient is still NPO due to dysphagia * tube feeds started perr dietitian consult * #Hyperkalemia: resolved #Hypokalemia: K is 3.2 today. Will replaceand trend. #Paroxysmal afib: coumadin on hold due to supratherapeutic iNR. Will monitor. On metoprolol #Hyperlipidemia: simvastatin on hold due to liver injury #GERD: on PPI DVT prophylaxis; not indicated due to supratherapeutic INR. Prognosis: prognosis remains poor. Patient is still very frail, weak and lethargic. Family had a long discussion with general surgery today and did not want any surgical intervention. They wish to consider continue CODE STATUS to DNR CC. Hospice consulted per family request. COde status: DNRCCA no intubation Medications at Discharge Home Medications multivitamin,mn-chrd-slewsuba 27 mg-0.4 mg tablet 0.5 tab PO BID supplement 02/15/14 warfarin 2 mg tablet 2 mg PO SUTUTHSA blood thinner 05/06/17 simvastatin 20 mg tablet 20 mg PO QHS cholesterol 07/17/20 warfarin 1 mg tablet 1 mg PO MOWEFR blood thinner 07/17/20 metoprolol tartrate 25 mg tablet 12.5 mg (1/2 x 25 mg) PO BID heart #180 tabs 08/14/22 Handicap Placard #1 ea 09/30/22 spironolactone 25 mg tablet 25 mg PO DAILY diuretic #90 tabs 09/22/23 furosemide 40 mg tablet 60 mg (1.5 x 40 mg) PO BID diuretic #270 tabs 12/22/23 Hospital Course Operations None Procedures None Summary of Care Provided Minutes Spent on Discharge: 65 Hospital Course: Patient is an 88 y/o male with a PMH as outlined who was admitted via the ED on 01/04/2024 with a complaint of increasing shortness of breath, fatigue and confusion. He had been seen in the ED 3 days prior to this admission with similar complaints and diagnosed with covid. He was discharged home from the ED. He had however been increasingly weak and lethargic at home, so famil brought him in to the ED. Workup in the ED showed INR of 6.5, wbc of 12.9, potassium of 5.4, sodium of 132 and Creatinine of 3.9. Initial troponin was 347 and BNP was greater than 5000. He was admitted and managed for BEAN and acute encephalopathy which was thought to be due to the BEAN. Urinalysis also showed evidence of UTI and he was started on IV ceftriaxone. He had a long, protracted hospital course, with INR trending up to a peak of 13.5. HE was given vitamin K. His creatinine continued to trend upwards, complicated by acute metabolic acidosis. Nephrology was consulted and he was placed on bicarb drip. He also developed acute transaminitis, with liver enzymes trending upwards. Hepatitis panel was negative and liver ultrasound was also negative. Serum acetaminophen level was normal. Gastroenterology was consulted and thought his symptoms were due to shock liver. He was started on acetylcysteine drip, and liver enzymes trended downwards. He also developed dysphagia and was made NPO. Computer [employer] Teacher recommended tube feeds. HE had an NG tube inserted after multiple attempts. KUB done showed intestinal obstruction vs ileus. General surgery was consulted and ordered a CT of the abdomen and pelvis which was significant for free air in the abdomen, concerning for peritonitis, and also ileus. Per family discussion with general surgery, they did not want any operative management and opted to change code status to DNRCC. Hospice was consulted and patient was discharged to the inpatient hospice facility on . Patient seen and examined prior to discharge. He remained weak and lethargic, though he was able to answer a few questions. Unable to do comprehensive review of systems due to patient's encephalopathy. Labs and vitals reviewed. . Physical Exam Const alert Constitutional Narrative: frail and weak. able to communicate a bit. Orientation / Consciousness: lethargic HEENT normocephalic, head/scalp atraumatic, moist oral mucous membranes and oropharynx normal Eyes PERRL and EOMs intact bilaterally Neck no lymphadenopathy and supple Lymph Lymphatic: no lymphadenopathy noted and no lymphedema noted Resp normal respiratory effort, normal air movement and clear to auscultation bilaterally Cardio regular rate, regular rhythm, S1 normal heart sound, S2 normal heart sound and no murmurs GI GI Narrative: moderate abdominal distension, minimal tenderness, no guarding or rebound tenderness. Extremity normal capillary refill, no clubbing, cyanosis or edema and no calf tenderness General Extremity: no tenderness to palpation of joints or extremities Skin Skin Narrative: no visible jaundice General Skin Exam: no breakdown Neuro Neuro Narrative: very frail, lethargic Motor Exam: general weakness Weight / BMI Weight Weight: 215 lb 2.738 oz Body Mass Index (BMI) 28.3 ABG / Lab / Microbiology Data 01/11/24 05:55 01/11/24 05:55 Laboratory: Laboratory Results - last 24 hr 01/11/24 05:55: WBC 14.3 H, RBC 4.37 L, Hgb 13.6, Hct 42.9, MCV 98.2 H, MCH 31.1, MCHC 31.7 L, RDW Std Deviation 52.1 H, RDW Coeff of Alfonso 17.2 H, Plt Count 70 L, MPV 14.0 H, Immature Gran % (Auto) 0.500, Neut % (Auto) 84.6 H, Lymph % (Auto) 3.4 L, [place] % (Auto) 11.4 H, Eos % (Auto) 0.0, Baso % (Auto) 0.1, A bsolute Neuts (auto) 12.1 H, Absolute Lymphs (auto) 0.49 L, Nucleated RBC % 0.2, Differential Comment , Diff Path Review September, PT 29.5 H, INR 2.8, Sodium 145, Potassium 3.2 L, Chloride 104, Carbon Dioxide 22.0, Anion Gap 19 H, BUN 158 H*, Creatinine 4.60 H, Estim Creat Clear Calc 13.66, Est GFR (MDRD) Af Amer 16 L , Est GFR (MDRD) Non-Af 13 L, BUN/Creatinine Ratio 34.3 H, Glucose 124 H, C alcium 8.3 L, Total Bilirubin 2.30 H, AST 137 H, ALT 519 H, Alkaline Phosphatase 64, Total Protein 5.9 L, Albumin 3.4, Globulin 2.5, Albumin/Globulin Ratio 1.4 Radiography Diagnostic Testing: Radiology Impression KUB X-Ray 01/10/24 18:20 IMPRESSION: Persistent proximal position of the NG tube. Electronically Signed: Cain Bal MD at 19:14 EDT , KUB X-Ray 01/10/24 21:02 IMPRESSION: Proximal position of the NG tube which should be advanced 10 to 15 cm. Persistent small bowel dilatation consistent with small bowel obstruction. Electronically Signed: Cain Bal MD at 22:04 EDT , KUB X-Ray 01/10/24 22:45 IMPRESSION: Proximal position of the NG tube which should be advanced 10 to 15 cm. Electronically Signed: Cain Bal MD at 23:50 EDT , KUB X-Ray 01/11/24 00:15 IMPRESSION: Enteric tube side-port and distal tip are distal to the GE junction within the proximal stomach. Electronically Signed: Yuri Johnston DO at 1:33 EDT , KUB X-Ray 01/11/24 06:30 IMPRESSION: Stable dilated loops of small bowel consistent with small bowel obstruction. Electronically Signed: Yuri Johnston DO at 7:57 EDT , Abdomen/Pelvis CT 01/11/24 09:21 IMPRESSION: Mild free air with suspicion for mild pneumatosis of the proximal ascending colonic wall, suspicious for bowel ischemia with perforation and/or peritonitis absenting recent history of surgery/intervention. Mild colonic ileus/pseudoobstruction. No evidence for small bowel obstruction. Mild pleural effusions with bibasilar atelectasis or pneumonia. Mild ascites. Mild infrarenal abdominal aortic aneurysm without acute rupture. Electronically Signed: Mary Ann Haas MD at 10:36 EDT , ADDENDUM: 01/11/24 1049 IMPRESSION: Mild free air with suspicion for mild pneumatosis of the proximal ascending colonic wall, suspicious for bowel ischemia with perforation and/or peritonitis absenting recent history of surgery/intervention. Mild colonic ileus/pseudoobstruction. No evidence for small bowel obstruction. Mild pleural effusions with bibasilar atelectasis or pneumonia. Mild ascites. Mild infrarenal abdominal aortic aneurysm without acute rupture. N.B. : Graciela Medina RN, confirmed on 01/11/2024 10:42:58 (ET) that the healthcare facility has received the radiology report. Electronically Signed: Mary Ann Haas MD at 10:36 EDT , Meaningful Use Info Meaningful Use Meaningful Use Diagnoses (Choose all that apply): None applicable Ischemic Stroke Statin Dosing Therapy Reference: STATIN DOSE THERAPY REFERENCE: * Patients > 75 years receive moderate or high dose statin therapy. * Patients 75 years or YOUNGER should receive HIGH intensity statin dose unless contraindicated. You will be required to document reason for non-treatment if statin daily dose does not meet guidelines. HIGH DOSE STATIN THERAPY DAILY Atorvastatin > than or = to 40 mg Rosuvastatin > than or = to 20 mg Amlodipine + Atorvastatin > than or = to 2.5/40 mg Ezetimibe + Simvastatin 10/80 mg Simvastatin 80mg Discharge Plan Admission Admit Date/Time: 01/04/24 16:55 Primary Reason for Your Visit: BEAN, shock liver, colonic perforation with peritonitis Attending Provider: Maisha Meyers Primary Care Provider: Yuri Arteaga Consulting Providers: Anabelle Gary; Elvi Zamarripa; Elliot Llanes; Blas Bean; Elliot Cook; Aruna Eubanks; aJmi Hernandez; Elma Schwartz NP Discharge Orders/Prescriptions Prescriptions: No Action metoprolol tartrate 25 mg tablet 12.5 mg PO BID Qty: 180 3RF (DME) Handicap Placard See Rx Instructions .Route .MEDSUPPLY Qty: 1 0RF Rx Instructions: Good from 09/30/2022-10/01/2027 multivitamin,qm-atfn-wyiauvam 1 TABLET tablet 0.5 tab PO BID Patient Comments: SUPPLEMENT warfarin 2 MG tablet 2 mg PO SUTUTH Patient Comments: blood thinner/bridging with lovenox simvastatin 20 MG tablet 20 mg PO QHS warfarin 1 MG tablet 1 mg PO MOWEFR spironolactone 25 mg tablet 25 mg PO DAILY Qty: 90 3RF furosemide 40 mg tablet 60 mg PO BID Qty: 270 3RF Referrals / Follow Up: Yuri Arteaga MD [Primary Care Provider] - Disposition Disposition (needs filled in before D/C Order can be placed): Hospice in Medical Facility Charges/Coding Visit Charges Inpatient E&M: 63391 Disch Hosp >30min
[2024-01-12 15:45] LABS: Pathologist Review Reviewed
[2024-01-12 15:47] LABS: Pathologist Review Reviewed
== END 2024-01-11 17:41 | disposition hospice, inpatient (51) | DRG 871 ==
LOC: ED 16:21 → PCU 17:17
PROVIDERS: Internal Medicine; Admitting Provider Internal Medicine; Emergency Provider Emergency Medicine; PCP Family Medicine; Visit Provider Student in an Organized Health Care Education/Training Program
DX: A41.9 Sepsis, unspecified organism (principal); U07.1 COVID-19; N17.0 Acute kidney failure with tubular necrosis; G93.41 Metabolic encephalopathy; K65.9 Peritonitis, unspecified; K56.699 Other intestinal obstruction unspecified as to partial versus complete obstruction; E46 Unspecified protein-calorie malnutrition; E87.21 Acute metabolic acidosis; I13.0 Hypertensive heart and chronic kidney disease with heart failure and stage 1 through stage 4 chronic kidney disease, or unspecified chronic kidney disease; E87.1 Hypo-osmolality and hyponatremia; I50.32 Chronic diastolic (congestive) heart failure; N28.0 Ischemia and infarction of kidney; J90 Pleural effusion, not elsewhere classified; J98.11 Atelectasis; N30.00 Acute cystitis without hematuria; K72.90 Hepatic failure, unspecified without coma; N18.31 Chronic kidney disease, stage 3a; I71.9 Aortic aneurysm of unspecified site, without rupture; Z95.2 Presence of prosthetic heart valve; I48.0 Paroxysmal atrial fibrillation; E86.9 Volume depletion, unspecified; K76.82 Hepatic encephalopathy; E87.8 Other disorders of electrolyte and fluid balance, not elsewhere classified; K21.9 Gastro-esophageal reflux disease without esophagitis; I25.10 Atherosclerotic heart disease of native coronary artery without angina pectoris; E78.5 Hyperlipidemia, unspecified; E87.5 Hyperkalemia; K58.9 Irritable bowel syndrome, unspecified; E87.6 Hypokalemia; R79.1 Abnormal coagulation profile; Z79.01 Long term (current) use of anticoagulants; Z86.73 Personal history of transient ischemic attack (TIA), and cerebral infarction without residual deficits; R82.81 Pyuria; R74.01 Elevation of levels of liver transaminase levels; Z86.16 Personal history of COVID-19; R13.10 Dysphagia, unspecified
CPT/HCPCS: 36415; 36600; 71045; 71046; 74018; 74176; 76705; 76770; 80048; 80053; 80076; 80329; 81001; 82140; 82803; 83605; 83615; 83735; 83880; 84100; 84484; 85025; 85610; 85730; 86706; 86803; 87040; 87340; 87635; 92526; 92610; 93005; 94668; 97110; 97162; 97166; 97530; 97802; 97803; 99284; J7030; J7040; J7050; J7120; P9047; P9612; A4216; G0480; J3490